=== PATIENT | male | born 1975 | race African-American/Black ===

== ENCOUNTER 2019-12-21 11:40 | Emergency (ER) | payer BC, SELFPAY ==
[2019-12-21 11:43] VITALS: BP 126/81; RESP 20; TEMP 36.8; O2SAT 99
--- NOTE | 2019-12-21 11:55 | ED.BACK ---
HPI - Back Pain/Injury General Chief Complaint: Back Pain/Injury Stated Complaint: back pain Time Seen by Provider: 12/21/19 12:00 Source: patient and RN notes reviewed Mode of arrival: ambulatory Limitations: no limitations History of Present Illness HPI Narrative: 44-year-old male presents with concern for low back pain that started . Denies any injury, trauma. Reports pain on the right low back, that radiates down the right buttock. Reports he was just in the chiropractor, who he was seeing for the first time. He reports after TENS unit and stretching the pain worsened. He reports he had been taking cyclobenzaprine for shoulder muscle spasms, last took cyclobenzaprine yesterday. Reports cyclobenzaprine was not helping his back pain. Reports he is also been taking 800 mg ibuprofen with no relief. MD elicited complaint: back pain Related Data Home Medications Medication Instructions Recorded Confirmed baclofen 10 mg tablet 10 mg PO QID tablet 09/23/19 blood sugar diagnostic #10 each 09/23/19 blood sugar diagnostic #10 each 09/23/19 lancets 33 gauge #100 each 09/23/19 metformin 1,000 mg tablet 1,000 mg PO DAILY 09/23/19 nitroglycerin 0.4 mg sublingual 0.4 mg SUBLINGUAL Q5M PRN 09/23/19 tablet allopurinol 300 mg PO DAILY 12/08/19 amlodipine 10 mg PO DAILY 12/08/19 chlorthalidone 50 mg PO DAILY 12/08/19 methylphenidate HCl 20 mg PO BID 12/08/19 sitagliptin [Januvia] 100 mg PO DAILY 12/08/19 albuterol sulfate INHALATION 12/21/19 Allergies Allergy/AdvReac Type Severity Reaction Status Date / Time lisinopril Allergy Unknown Cough Verified 12/08/19 09:08 Penicillins Allergy Unknown Unknown Verified 08/10/19 11:43 Review of Systems Review of Systems: Narrative: CONSTITUTIONAL: Denies malaise, chills, sweats, or fever. CARDIOVASCULAR: Denies chest pain, palpitations, or edema. RESPIRATORY: Denies cough or dyspnea. GASTROINTESTINAL: Denies abdominal pain, nausea, vomiting, diarrhea, denies loss of bowel function. GENITOURINARY: Denies dysuria or hematuria. Denies loss of bladder function. Denies loss of perianal anesthesia SKIN: Denies rash or itching. MUSCULOSKELETAL: Reports low right back pain that radiates to the right buttock NEUROLOGIC: Denies numbness, weakness, or headache. All systems reviewed & are unremarkable except as noted in HPI and below PMFSH Social History Social History Smoking status: Current every day smoker Alcohol intake: current Comments At time of signature, agree with nursing past medical, surgical, social and family history. There is no relevant family history pertinent to the presenting complaint Exam Narrative: Exam Narrative: GENERAL: Well-appearing, well-nourished, and in no acute distress. HEAD: Normocephalic, atraumatic. EYES: PERRLA and EOMI. NECK: Supple. No lymphadenopathy. CHEST: Clear to auscultation. No respiratory distress. HEART: Regular rate and rhythm. Distal pulses palpable and equal, cap refill <3 seconds ABDOMEN: Soft, nontender, nondistended, normal active bowel sounds, no palpable or pulsatile masses. No CVA tenderness MUSCULOSKELETAL: Normal range of motion and strength in all extremities; 5/5 strength with hip flexion and extension, dorsiflexion and extension, knee flexion and extension, plantar flexion and extension. Normal sensation in dermatomal distributions with sensitivity to light touch and pain. No midline back tenderness to palpation. No paraspinal tenderness. Transfers from lying to sitting to standing. SKIN: Warm, dry, no rash. No ecchymosis, erythema, open wounds to back. NEURO: No focal deficits. Alert and oriented x3. Reflexes intact. Normal gait. PSYCH: Normal mood and affect Course Course Emergency Course: Discussed with patient limited diagnostic capability at the [facility], and need for further evaluation due to patient's continued pain despite anti-inflammatories and
== END 2019-12-21 12:38 | disposition home or self-care (01) ==
PROVIDERS: Emergency Provider Nurse Practitioner; PCP Family Medicine
DX: M54.5 Low back pain (principal); F17.200 Nicotine dependence, unspecified, uncomplicated; I10 Essential (primary) hypertension; G47.30 Sleep apnea, unspecified; M10.9 Gout, unspecified; E11.9 Type 2 diabetes mellitus without complications
CPT/HCPCS: 99213; G0463

== ENCOUNTER 2020-10-28 09:09 | Emergency (ER) | payer BC, SELFPAY ==
[2020-10-28 09:21] VITALS: BP 139/99; PULSE 98; RESP 18; TEMP 36.8; O2SAT 100
--- NOTE | 2020-10-28 11:03 | ED.BACK ---
HPI - Back Pain/Injury General Chief Complaint: Back Pain/Injury Stated Complaint: back pain Time Seen by Provider: 10/28/20 09:39 Source: patient Mode of arrival: ambulatory Limitations: no limitations History of Present Illness HPI Narrative: 45-year-old man Complains of back trouble with pains radiating mostly into his right leg times weeks to months He has had some prescriptions which did not resolve his symptoms and also went to physical therapy previously There is no weakness, there is no bowel or bladder symptoms, there is no loss of sensation He has no red flag conditions such as cancer drug abuse or steroid use MD elicited complaint: back pain Pertinent past history: prior back pain Related Data Home Medications Medication Instructions Recorded Confirmed baclofen 10 mg tablet 10 mg PO QID tablet 09/23/19 blood sugar diagnostic #10 each 09/23/19 blood sugar diagnostic #10 each 09/23/19 lancets 33 gauge #100 each 09/23/19 metformin 1,000 mg tablet 1,000 mg PO DAILY 09/23/19 nitroglycerin 0.4 mg sublingual 0.4 mg SUBLINGUAL Q5M PRN 09/23/19 tablet allopurinol 300 mg PO DAILY 12/08/19 amlodipine 10 mg PO DAILY 12/08/19 chlorthalidone 50 mg PO DAILY 12/08/19 methylphenidate HCl 20 mg PO BID 12/08/19 sitagliptin [Januvia] 100 mg PO DAILY 12/08/19 albuterol sulfate INHALATION 12/21/19 Allergies Allergy/AdvReac Type Severity Reaction Status Date / Time Penicillins Allergy Severe Anaphylactic Verified 10/28/20 09:27 Shock lisinopril Allergy Unknown Cough Verified 10/28/20 09:27 [facility] Past Medical History Medical History (Updated 10/28/20 @ 11:06 by Gilberto Crews MD) Carpal tunnel syndrome Diabetes mellitus Essential hypertension Gastric reflux Hyperglycinemia Obesity Osteoarthritis of both knees Sleep apnea Family History Family History Mother Diabetes mellitus Hypertension Father Hypertension Family history of cardiovascular disease Social History Social History Smoking status: Current every day smoker Alcohol intake: current Gender identity (if verbalized by the patient): Male Exam Const: General: no acute distress, well developed and awake Nutritional Appearance: obese Orientation/consciousness: patient oriented x3 (alert) Limitations: no limitations HENMT: Head: normocephalic and atraumatic General nose exam: No nasal discharge present Face and sinus: face symmetric Eyes: Conjunctivae: conjunctivae normal Sclera: sclerae normal EOM: EOMs intact bilaterally Neck: Neck: normal visual inspection, supple and no JVD Chest: Chest palpation & inspection: deferred Resp: Effort & Inspection: normal respiratory effort Auscultation: other (BS =) Cardio: Heart sounds: no gallops GI: Inspection: normal to inspection GI Palp: Yes Soft to palpation and No Tenderness to palpation present (GI) Back/Spine/Pelvis: Thoracic/Lumbar Spine: paraspinal muscle tenderness, lumbar spinal tenderness (Low midline) and straight leg raise positive right Sacroiliac joints: bilaterally Skin: General skin exam: normal color and no rashes or lesions noted Neuro: General: patient oriented x3 (alert), moves all extremities and no focal motor deficits Cranial nerves: Yes facial symmetry Speech: normal speech Extrem: General: normal to inspection, full ROM and no pedal edema Psych: Affect: normal affect Course Vital Signs Vital signs: Vital Signs Temperature 36.8 C 10/28/20 09:21 Pulse Rate 98 10/28/20 09:21 Respiratory Rate 18 10/28/20 09:21 Blood Pressure 139/99 H 10/28/20 09:21 Pulse Oximetry 100 10/28/20 09:21 Temperature 36.8 C 10/28/20 09:21 Pulse Rate 98 10/28/20 09:21 Respiratory Rate 18 10/28/20 09:21 Blood Pressure 139/99 H 10/28/20 09:21 Pulse Oximetry 100 10/28/20 09:21 Discharge Plan Discharge Clinic
[2020-10-28] MEDS: KETOROLAC 30 MG/ML VIAL (*BKC) 60 MG IM (11:15)
== END 2020-10-28 12:08 | disposition home or self-care (01) ==
PROVIDERS: Emergency Provider Emergency Medicine; PCP Family Medicine
DX: M54.31 Sciatica, right side (principal); F17.200 Nicotine dependence, unspecified, uncomplicated; E11.9 Type 2 diabetes mellitus without complications; I10 Essential (primary) hypertension; G47.30 Sleep apnea, unspecified; M17.0 Bilateral primary osteoarthritis of knee; E66.9 Obesity, unspecified; Z68.42 Body mass index [BMI] 45.0-49.9, adult
CPT/HCPCS: 96372; 99283; J1885

== ENCOUNTER 2020-12-12 02:02 | Emergency (ER) | payer BC, SELFPAY ==
[2020-12-12 02:06] VITALS: BP 155/92; RESP 20; TEMP 37.1; O2SAT 100
--- NOTE | 2020-12-12 02:12 | ECG_ITS ---
Measurements Intervals [place] Rate: 63 P: 51 AR: 159 QRS: 35 QRSD: 92 T: 24 QT: 369 QTc: 380 Interpretive Statements SINUS RHYTHM ATRIAL PREMATURE COMPLEX BORDERLINE ECG Electronically Signed On 12-12-2020 7:55:03 [employer] by Blayne Chance D.O.
[2020-12-12 02:36] LABS: Basophils Absolute Auto 0.1 K/mm3 (0.0-0.1); Basophils Percent Auto 0.6 % (0.2-1.2); Eosinophils Absolute Auto 0.5 K/mm3 (0-0.3); Hematocrit 41.2 % (42.0-52.0); Hemoglobin 13.4 g/dL (14.0-18.0); Immature Granulocyte Absolute 0.09 K/mm3 (0.00-0.031); Immature Granulocyte Percent A 1.2 % (0-0.5); Lymphocytes Absolute Auto 3.16 K/mm3 (0.9-3.2); Lymphocytes Percent Auto 40.5 % (18.3-44.2); Mean Corpuscular HGB Conc 32.5 g/dl (32-36); Mean Corpuscular Hemoglobin 26.1 pg (26-34); Mean Corpuscular Volume 80.2 fl (80-100); Mean Platelet Volume 9.3 fl (7.4-10.4); Monocytes Absolute Auto 0.6 K/mm3 (0.1-0.6); Monocytes Percent Auto 7.9 % (2.6-8.5); Neutrophils Absolute Auto 3.4 K/mm3 (1.3-6.7); Neutrophils Percent Auto 43.8 % (45.5-73.1); Platelet Count Result 268 k/mm3 (150-375); Red Blood Count 5.14 M/mm3 (4.6-6.20); Red Cell Distribution Width 14.1 % (11.5-14.5); White Blood Count 7.8 K/mm3 (4.5-10.0)
[2020-12-12 02:45] LABS: Alanine Aminotransferase 37 U/L (4-50); Albumin Level 4.1 g/dL (3.5-5.1); Alkaline Phosphatase 49 U/L (38-126); Anion Gap 7 mmol/L (8-16); Aspartate Amino Transferase 27 U/L (17-59); Bilirubin,Total 0.7 mg/dL (0.2-1.3); Blood Urea Nitrogen 10 mg/dL (9-20); Calcium 9.4 mg/dL (8.4-10.2); Carbon Dioxide 31 mmol/L (22-30); Chloride 100 mmol/L (98-107); Estimated CRCL calculation 134 ml/min; Estimated Glomerular Filt Rate > 60; Glucose 154 mg/dL (75-110); Magnesium 1.6 mg/dL (1.6-2.3); Potassium 4.2 mmol/L (3.4-5.0); Sodium 138 mmol/L (137-145)
--- NOTE | 2020-12-12 02:51 | ED.GENADULT ---
HPI - General Adult General Chief complaint: Unspecified Stated complaint: feels shakey Time Seen by Provider: 12/12/20 02:07 History of Present Illness HPI narrative: Patient is a 45-year-old gentleman who presents the emergency department with chief complaint of feeling shaky. The patient reports that this evening he went to bed and was trying not to take his Arnold and his Flexeril. The patient states he woke up and felt as though he was shaking over his entire body. Patient states that he was awake during this time had no loss of consciousness no loss of bowel or bladder function. Patient states that he called EMS and it slowly has improved since then. The patient denies fever reports he did not feel like chills. Patient denies nausea vomiting or diarrhea patient denies abdominal pain. Related Data Home Medications Medication Instructions Recorded Confirmed baclofen 10 mg tablet 10 mg PO QID tablet 09/23/19 blood sugar diagnostic #10 each 09/23/19 blood sugar diagnostic #10 each 09/23/19 lancets 33 gauge #100 each 09/23/19 metformin 1,000 mg tablet 1,000 mg PO DAILY 09/23/19 nitroglycerin 0.4 mg sublingual 0.4 mg SUBLINGUAL Q5M PRN 09/23/19 tablet allopurinol 300 mg PO DAILY 12/08/19 amlodipine 10 mg PO DAILY 12/08/19 chlorthalidone 50 mg PO DAILY 12/08/19 methylphenidate HCl 20 mg PO BID 12/08/19 sitagliptin [Januvia] 100 mg PO DAILY 12/08/19 albuterol sulfate INHALATION 12/21/19 Allergies Allergy/AdvReac Type Severity Reaction Status Date / Time Penicillins Allergy Severe Anaphylactic Verified 10/28/20 09:27 Shock lisinopril Allergy Unknown Cough Verified 10/28/20 09:27 Review of Systems Review of Systems: Narrative: A 10 system review of systems was completed on the patient and is negative except for what is stated in the HPI. Nursing and ancillary documentation was reviewed. [facility] Past Medical History Medical History (Updated 12/12/20 @ 02:55 by Geraldo Hwang MD) Carpal tunnel syndrome Diabetes mellitus Essential hypertension Gastric reflux Hyperglycinemia Obesity Osteoarthritis of both knees Sleep apnea Family History Family History Mother Diabetes mellitus Hypertension Father Hypertension Family history of cardiovascular disease Social History Social History Smoking status: Current every day smoker Alcohol intake: current Gender identity (if verbalized by the patient): Male Exam Narrative: Exam Narrative: GENERAL: Well-appearing, well-nourished, and in no acute distress. HEAD: Normocephalic, atraumatic. EYES: PERRLA and EOMI. ENT: Nares clear, no rhinorrhea or epistaxis. Mucous membranes moist. NECK: Supple. CHEST: Clear to auscultation. No respiratory distress. HEART: Regular rate and rhythm. No murmur heard. Normal peripheral pulses. ABDOMEN: Soft, nontender, nondistended, normal active bowel sounds. EXTREMITIES: Normal range of motion. No edema. SKIN: Warm, dry, no rash. NEURO: No focal deficits. Alert and oriented x3. PSYCH: Normal mood and affect. Course Course Emergency Course: EKG shows a sinus rhythm rate of [address] elevation or ST depression noted there is an occasional PAC Vital Signs Vital signs: Vital Signs Temperature 37.1 C 12/12/20 02:06 Respiratory Rate 12/12/20 02:06 Blood Pressure 155/92 H 12/12/20 02:06 Pulse Oximetry 100 12/12/20 02:06 Temperature 37.1 C 12/12/20 02:06 Pulse Rate 3 L 12/12/20 02:52 Respiratory Rate 12/12/20 02:52 Blood Pressure 115/60 12/12/20 02:52 Pulse Oximetry 100 12/12/20 02:52 Medical Decision Making Vital Signs Vital Signs: Vital Signs Temperature 37.1 C 12/12/20 02:06 Respiratory Rate 12/12/20 02:06 Blood Pressure 155/92 H 12/12/20 02:06 Pulse Oximetry 100 12/12/20 02:06 Temperature 37.1 C 11/18
[2020-12-12 02:52] VITALS: BP 115/60; PULSE 3; RESP 20; O2SAT 100
[2020-12-12 02:56] LABS: Add Urine Microscopic? YES; Appearance Urine Clear (Clear); Bilirubin Urine Negative (Negative); Blood Urine 1+ (Negative); Color Urine Straw (Yellow); Glucose Urine UA 3+ mg/dL (Negative); Ketones Urine Negative (Negative); Leukocyte Esterase Ur Negative LEU/UL (Negative); Mucus Urine Rare /lpf; Nitrate Urine Negative (Negative); Protein Urine Negative (Negative); RBC Urine 0-2 /hpf (0-2); Specific Grav Ur 1.017 (1.001-1.035); Squamous Epithelial Cell Urine Rare /hpf (Few); Urobilinogen Urine Negative mg/dL (<2.0); WBC Urine 0-3 /hpf
[2020-12-12] MEDS: KETOROLAC (*BKC) 60 MG/2 ML VIAL IM (03:14)
== END 2020-12-12 03:26 | disposition home or self-care (01) ==
PROVIDERS: Emergency Provider Emergency Medicine; PCP Family Medicine
DX: R25.1 Tremor, unspecified (principal); E11.9 Type 2 diabetes mellitus without complications; I10 Essential (primary) hypertension; M17.0 Bilateral primary osteoarthritis of knee; G47.30 Sleep apnea, unspecified; Z79.84 Long term (current) use of oral hypoglycemic drugs; F17.200 Nicotine dependence, unspecified, uncomplicated; I49.1 Atrial premature depolarization
CPT/HCPCS: 36415; 80053; 81001; 83735; 85025; 93005; 96372; 99283; J1885

== ENCOUNTER → 2020-12-16 08:57 | Outpatient (CLI) | payer BC, SELFPAY ==
--- NOTE | ~2020-12-16 | MR_ITS ---
EXAMINATION: MR lumbar spine wo con DATE: 12/16/2020 09:59 INDICATION: Low back pain. TECHNIQUE: Magnetic resonance imaging (MRI) of the lumbar spine was performed without intravenous con trast. Sequences included sagittal T2-weighted FSE, sagittal T2-weighted FS FSE, sagittal T1-weighted FSE, and axial T2-weighted FSE. COMPARISON: Lumbar spine radiographs 05/07/2019 FINDINGS: Bone alignment is normal. Vertebral body heights are normal. Intervertebral disc heights ar e normal. The distal spinal cord signal intensity is normal. The conus medullaris is at L1. The follo wing disc levels are specifically discussed: L1-L2: The disc does not extend beyond the endplate margin. There is mild bilateral facet joint osteo arthritis. There is no neural foraminal stenosis. There is no central canal stenosis. L2-L3: The disc is mildly bulging. There is mild bilateral facet joint osteoarthritis. There is mild bilateral neural foraminal stenosis. There is no central canal stenosis. L3-L4: The disc is mildly bulging. There is mild bilateral facet joint osteoarthritis. There is mild bilateral neural foraminal stenosis. There is no central canal stenosis. L4-L5: The disc is bulging. There is mild bilateral facet joint osteoarthritis. There is mild bilater al neural foraminal stenosis. There is mild central canal stenosis. L5-S1: The disc is bulging and has an annular fissure. There is no facet joint osteoarthritis. There is moderate bilateral neural foraminal stenosis. There is mild central canal stenosis. IMPRESSION: 1. Moderate lower lumbar spondylosis. Reviewed, dictated and finalized at location A. OR [employer] WRITER
== END ==
PROVIDERS: Visit Provider Physical Medicine & Rehabilitation Pain Medicine
DX: M47.896 Other spondylosis, lumbar region (principal)
CPT/HCPCS: 72148

== ENCOUNTER 2020-12-25 00:33 | Emergency (ER) | payer BC, SELFPAY ==
--- NOTE | ~2020-12-25 | XR_ITS ---
EXAMINATION: XR chest 2V DATE: 12/25/2020 02:01 INDICATION: Chest pain. TECHNIQUE: Frontal and lateral views of the chest were obtained. COMPARISON: Chest 2 views 07/31/2019 FINDINGS: The chest demonstrates clear lungs without pneumonia, pleural effusion, or pneumothorax. Th e heart size is normal. Surgical clips in the right upper quadrant are likely from cholecystectomy. IMPRESSION: 1. No acute cardiopulmonary disease. Reviewed, dictated and finalized at location A. TRY PROCESSOR
[2020-12-25 00:38] VITALS: BP 182/117; PULSE 99; RESP 22; TEMP 35.9; O2SAT 100
[2020-12-25] MEDS: KETOROLAC 30 MG/ML VIAL (*BKC) IV PUSH (01:46)
[2020-12-25 01:50] LABS: Basophils Absolute Auto 0.1 K/mm3 (0.0-0.1); Basophils Percent Auto 0.7 % (0.2-1.2); Eosinophils Absolute Auto 0.4 K/mm3 (0-0.3); Eosinophils Percent Auto 2.5 % (0-4.4); Hematocrit 43.7 % (42.0-52.0); Hemoglobin 14.4 g/dL (14.0-18.0); Immature Granulocyte Absolute 0.11 K/mm3 (0.00-0.031); Immature Granulocyte Percent A 0.7 % (0-0.5); Lymphocytes Percent Auto 32.1 % (18.3-44.2); Mean Corpuscular Hemoglobin 26.3 pg (26-34); Mean Corpuscular Volume 79.9 fl (80-100); Mean Platelet Volume 9.6 fl (7.4-10.4); Monocytes Absolute Auto 1.2 K/mm3 (0.1-0.6); Monocytes Percent Auto 7.9 % (2.6-8.5); Neutrophils Absolute Auto 8.6 K/mm3 (1.3-6.7); Neutrophils Percent Auto 56.1 % (45.5-73.1); Platelet Count Result 326 k/mm3 (150-375); Red Blood Count 5.47 M/mm3 (4.6-6.20); Red Cell Distribution Width 14.5 % (11.5-14.5); White Blood Count 15.3 K/mm3 (4.5-10.0)
[2020-12-25 01:58] LABS: Prothrombin Time 13.7 Seconds (11.1-14.7)
[2020-12-25 02:05] LABS: Anion Gap 13 mmol/L (8-16); Blood Urea Nitrogen 18 mg/dL (9-20); Calcium 9.5 mg/dL (8.4-10.2); Carbon Dioxide 30 mmol/L (22-30); Chloride 97 mmol/L (98-107); Estimated Glomerular Filt Rate > 60; Glucose 124 mg/dL (75-110); Potassium 3.4 mmol/L (3.4-5.0); Sodium 140 mmol/L (137-145)
--- NOTE | 2020-12-25 02:15 | ECG_ITS ---
Measurements Intervals [place] Rate: 94 P: 70 [place]: 127 QRS: 63 QRSD: 87 T: 38 QT: 363 QTc: 454 Interpretive Statements SINUS RHYTHM BASELINE ARTIFACT- I, II, AVR, AVL, AVF, V2-V3, V6 NORMAL ECG Electronically Signed On 12-25-2020 7:05:45 [employer] by Blayne Chance D.O.
[2020-12-25 02:17] LABS: Troponin I < 0.012 ng/mL (0.000-0.034)
[2020-12-25 03:14] VITALS: BP 168/99; PULSE 85; RESP 18; O2SAT 100
--- NOTE | 2020-12-25 03:47 | ED.CHESTPAIN ---
HPI - Chest Pain General Chief Complaint: Chest Pain Stated Complaint: cp Time Seen by Provider: 12/25/20 00:38 History of Present Illness HPI narrative: Patient is a 45-year-old male who presents to the ER with left-sided chest pain. Occurred while laying on the ground watching TV. Its left side and worse with movements of his arm. No known trauma. No difficulty breathing or swallowing. No history of cardiac disease. Unsure why he has nitroglycerin at home but reports he has never used it and has no exertional chest pain. Associate with some mild nausea. Reported started moving near his neck earlier but is located in the left side at this time. Cramping in nature. Related Data Home Medications Medication Instructions Recorded Confirmed baclofen 10 mg tablet 10 mg PO QID tablet 09/23/19 blood sugar diagnostic #10 each 09/23/19 blood sugar diagnostic #10 each 09/23/19 lancets 33 gauge #100 each 09/23/19 metformin 1,000 mg tablet 1,000 mg PO DAILY 09/23/19 nitroglycerin 0.4 mg sublingual 0.4 mg SUBLINGUAL Q5M PRN 09/23/19 tablet allopurinol 300 mg PO DAILY 12/08/19 amlodipine 10 mg PO DAILY 12/08/19 chlorthalidone 50 mg PO DAILY 12/08/19 methylphenidate HCl 20 mg PO BID 12/08/19 sitagliptin [Januvia] 100 mg PO DAILY 12/08/19 albuterol sulfate INHALATION 12/21/19 Allergies Allergy/AdvReac Type Severity Reaction Status Date / Time Penicillins Allergy Severe Anaphylactic Verified 12/25/20 00:41 Shock lisinopril Allergy Unknown Cough Verified 12/25/20 00:41 Review of Systems Review of Systems: All systems reviewed & are unremarkable except as noted in HPI and below Constitutional: Constitutional: Denies chills, Reports fatigue, Denies fever(s) and Denies weakness ENT: Denies nasal congestion and Denies sore throat Cardiovascular: Cardiovascular: Reports chest pain, Denies rapid heart rate and Reports radiating jaw, neck or arm pain Respiratory: Respiratory: Denies cough and Denies dyspnea Gastrointestinal: Gastrointestinal: Denies abdominal pain, Reports nausea and Denies vomiting [facility] Past Medical History Medical History (Updated 12/25/20 @ 04:06 by Olu Torres MD) Carpal tunnel syndrome Diabetes mellitus Essential hypertension Gastric reflux Hyperglycinemia Obesity Osteoarthritis of both knees Sleep apnea Surgical History Surgical History (Updated 12/25/20 @ 04:04 by Olu Torres MD) No pertinent past surgical history Family History Family History Mother Diabetes mellitus Hypertension Father Hypertension Family history of cardiovascular disease Social History Social History Smoking status: Current every day smoker Alcohol intake: current Gender identity (if verbalized by the patient): Male Exam Narrative: Exam Narrative: GENERAL: Well-appearing, well-nourished, and in no acute distress. HEAD: Normocephalic, atraumatic. CHEST: Clear to auscultation. No respiratory distress. Tender palpation left upper chest wall which is reproducible patient's discomfort. HEART: Regular rate and rhythm. Normal peripheral pulses. ABDOMEN: Soft, nontender, nondistended. EXTREMITIES: Normal range of motion. No edema. SKIN: Warm, dry, no rash. NEURO: Alert and oriented x3. PSYCH: Normal mood and affect. Course Course Emergency Course: Pain improved with medication. Informed of results. Pain felt to be musculoskeletal in nature. Discharge home. Vital Signs Vital signs: Vital Signs Temperature 96.7 F L 12/25/20 00:38 Pulse Rate 99 12/25/20 00:38 Respiratory Rate 22 H 12/25/20 00:38 Blood Pressure 182/117 H 12/25/20 00:38 Pulse Oximetry 100 12/25/20 00:38 Temperature 96.7 F L 12/25/20 00:38 Pulse Rate 85 12/25/20 03:14 Respiratory Rate 18 12/25/20 03:14 Blood Pressure 168/99 H 12/25/20 03:14 Pulse Oxi
[2020-12-25 04:36] VITALS: BP 167/89; PULSE 87; RESP 20; O2SAT 98
== END 2020-12-25 04:39 | disposition home or self-care (01) ==
PROVIDERS: Emergency Provider Emergency Medicine; PCP Family Medicine
DX: R07.89 Other chest pain (principal); E11.9 Type 2 diabetes mellitus without complications; I10 Essential (primary) hypertension; K21.9 Gastro-esophageal reflux disease without esophagitis; M17.0 Bilateral primary osteoarthritis of knee; G47.30 Sleep apnea, unspecified; E66.9 Obesity, unspecified; Z79.84 Long term (current) use of oral hypoglycemic drugs; F17.200 Nicotine dependence, unspecified, uncomplicated
CPT/HCPCS: 36415; 71046; 80048; 84484; 85025; 85610; 85730; 93005; 96374; 99284; J1885

== ENCOUNTER 2021-03-06 03:23 | Emergency (ER) | payer BC, SELFPAY ==
--- NOTE | ~2021-03-06 | XR_ITS ---
XR chest 1V portable DATE: 03/06/2021 05:01 INDICATION: Chest pain, abdominal cramping TECHNIQUE: Portable upright AP chest on 03/06/2021 at 0459 hours COMPARISON: 01/04/2021 PA and lateral chest FINDINGS: Normal heart size. No hilar or mediastinal enlargement. No pulmonary infiltrate or consolid ation, pleural effusion or pulmonary vascular congestion or pneumothorax. Included skeletal structures are unremarkable other than degenerative spurring of the spine.. IMPRESSION: No active cardiopulmonary disease Reviewed, dictated and finalized at location A.
--- NOTE | 2021-03-06 03:37 | ECG_ITS ---
Measurements Intervals [place] Rate: 91 P: 60 DC: 150 QRS: 61 QRSD: 98 T: 50 QT: 358 QTc: 441 Interpretive Statements SINUS RHYTHM BASELINE ARTIFACT- V5 NORMAL ECG Electronically Signed On 03-06-2021 7:23:15 CDT by Blayne Chance D.O.
[2021-03-06 03:38] VITALS: BP 155/105; PULSE 83; RESP 16; TEMP 36.7; O2SAT 100
[2021-03-06 03:51] LABS: Basophils Absolute Auto 0.1 K/mm3 (0.0-0.1); Basophils Percent Auto 0.6 % (0.2-1.2); Eosinophils Absolute Auto 0.6 K/mm3 (0-0.3); Eosinophils Percent Auto 4.6 % (0-4.4); Hematocrit 42.3 % (42.0-52.0); Hemoglobin 13.8 g/dL (14.0-18.0); Immature Granulocyte Absolute 0.18 K/mm3 (0.00-0.031); Immature Granulocyte Percent A 1.4 % (0-0.5); Lymphocytes Absolute Auto 4.26 K/mm3 (0.9-3.2); Lymphocytes Percent Auto 34.1 % (18.3-44.2); Mean Corpuscular HGB Conc 32.6 g/dl (32-36); Mean Corpuscular Hemoglobin 26.1 pg (26-34); Mean Corpuscular Volume 80.1 fl (80-100); Mean Platelet Volume 9.2 fl (7.4-10.4); Monocytes Absolute Auto 0.8 K/mm3 (0.1-0.6); Monocytes Percent Auto 6.4 % (2.6-8.5); Neutrophils Absolute Auto 6.6 K/mm3 (1.3-6.7); Neutrophils Percent Auto 52.9 % (45.5-73.1); Platelet Count Result 255 k/mm3 (150-375); Red Blood Count 5.28 M/mm3 (4.6-6.20); Red Cell Distribution Width 15.2 % (11.5-14.5); White Blood Count 12.5 K/mm3 (4.5-10.0)
[2021-03-06 04:25] VITALS: BP 133/80; PULSE 86; RESP 16; O2SAT 98
--- NOTE | 2021-03-06 04:44 | ED.CHESTPAIN ---
HPI - Chest Pain General Chief Complaint: Arrhythmia/Palpitations <Shelley Daniel MD - Last Filed: 03/06/21 08:12> Stated Complaint: heart beating fast/chest tightness <Shelley Daniel MD - Last Filed: 03/06/21 08:12> Time Seen by Provider: 03/06/21 03:37 <Shelley Daniel MD - Last Filed: 03/06/21 08:12> Source: patient <Shelley Daniel MD - Last Filed: 03/06/21 08:12> Mode of arrival: ambulatory <Shelley Daniel MD - Last Filed: 03/06/21 08:12> Limitations: no limitations <Shelley Daniel MD - Last Filed: 03/06/21 08:12> History of Present Illness HPI narrative: This is a 45 year old male with history hypertension and DM who presents for evaluation of chest tightness. He states he has been having chest tightness over the past 24 hours. He states he does not noticed it as much until he is at rest. He finally came to [facility] because he could not sleep. He states tonight he became diaphoretic and he did not feel well. His chest tightness is nonradiating. He denies cough, fever, nausea or vomiting. He does reports intermittent shortness of breath and muscle spasms to his abdomen. He states he has chronic back pain so he is not very active. HE denies heart disease or previous heart evaluation. <Shelley Daniel MD - Last Filed: 03/06/21 08:12> Related Data Home Medications: Home Medications Medication Instructions Recorded Confirmed baclofen 10 mg tablet 10 mg PO QID tablet 09/23/19 blood sugar diagnostic #10 each 09/23/19 blood sugar diagnostic #10 each 09/23/19 lancets 33 gauge #100 each 09/23/19 metformin 1,000 mg tablet 1,000 mg PO DAILY 09/23/19 nitroglycerin 0.4 mg sublingual 0.4 mg SUBLINGUAL Q5M PRN 09/23/19 tablet allopurinol 300 mg PO DAILY 12/08/19 amlodipine 10 mg PO DAILY 12/08/19 chlorthalidone 50 mg PO DAILY 12/08/19 methylphenidate HCl 20 mg PO BID 12/08/19 sitagliptin [Januvia] 100 mg PO DAILY 12/08/19 albuterol sulfate INHALATION 12/21/19 <Shelley Daniel MD - Last Filed: 03/06/21 08:12> Allergies/Adverse Reactions: Allergies Allergy/AdvReac Type Severity Reaction Status Date / Time Penicillins Allergy Severe Anaphylactic Verified 03/06/21 03:24 Shock lisinopril Allergy Unknown Cough Verified 03/06/21 03:24 <Shelley Daniel MD - Last Filed: 03/06/21 08:12> Review of Systems Review of Systems: All systems reviewed & are unremarkable except as noted in HPI and below <Shelley Daniel MD - Last Filed: 03/06/21 08:12> [facility] Past Medical History Medical History: Medical History (Updated 03/06/21 @ 08:12 by Shelley Daniel MD) Carpal tunnel syndrome Diabetes mellitus Essential hypertension Gastric reflux Hyperglycinemia Obesity Osteoarthritis of both knees Sleep apnea <Shelley Daniel MD - Last Filed: 03/06/21 08:12> Surgical History Surgical History: Surgical History (Updated 12/25/20 @ 04:04 by Olu Torres MD) No pertinent past surgical history <Shelley Daniel MD - Last Filed: 03/06/21 08:12> Family History Family History: Family History Mother Diabetes mellitus Hypertension Father Hypertension Family history of cardiovascular disease <Shelley Daniel MD - Last Filed: 03/06/21 08:12> Social History Social History: Social History Smoking status: Current every day smoker Alcohol intake: current Gender identity (if verbalized by the patient): Male <Shelley Daniel MD - Last Filed: 03/06/21 08:12> Exam Const: General: no acute distress and alert <Shelley Daniel MD - Last Filed: 03/06/21 08:12> Orientation/consciousness: patient oriented x3 <Shelley Daniel MD - Last Filed: 03/06/21 08:12> Eyes: EOM: EOMs intact bilaterally <Shelley Daniel MD - Last Filed: 03/06/21 08:12> Chest
[2021-03-06] MEDS: ASPIRIN 81 MG CHEWABLE TABLET 324 MG PO (05:26)
[2021-03-06 05:29] LABS: INR 0.9; Prothrombin Time 12.7 Seconds (11.1-14.7)
[2021-03-06 05:30] LABS: Partial Thromboplastin Time 32.6 SECONDS (22.3-36.8)
[2021-03-06 05:32] LABS: Alanine Aminotransferase 33 U/L (4-50); Albumin Level 4.3 g/dL (3.5-5.1); Alkaline Phosphatase 65 U/L (38-126); Anion Gap 7 mmol/L (8-16); Aspartate Amino Transferase 27 U/L (17-59); Bilirubin,Total 0.7 mg/dL (0.2-1.3); Blood Urea Nitrogen 15 mg/dL (9-20); Carbon Dioxide 29 mmol/L (22-30); Chloride 101 mmol/L (98-107); D Dimer 0.27 ug/mL (<0.48); Estimated CRCL calculation 140 ml/min; Estimated Glomerular Filt Rate > 60; Glucose 126 mg/dL (75-110); Lipase 280 U/L (23-300); Potassium 4.4 mmol/L (3.4-5.0); Sodium 137 mmol/L (137-145)
[2021-03-06 05:43] LABS: Troponin I < 0.012 ng/mL (0.000-0.034)
[2021-03-06 06:26] VITALS: BP 130/86; PULSE 86; RESP 16; O2SAT 100
[2021-03-06 07:25] VITALS: BP 125/68; PULSE 82; RESP 23; O2SAT 99
--- NOTE | 2021-03-06 07:37 | PC.NURSE ---
at bedside for reassessment. Pt resting on cart HOB elevated, repositioned for comfort, asking for warm blanket and pillow. States earlier he had shocks of pain in chest , +SOB. Currently denies CP/SOB, non-labored respirations.
--- NOTE | 2021-03-06 08:36 | PC.NURSE ---
0810 Pt ambulatory steady gait to BR, 3hr trop drawn and sent to lab
[2021-03-06 08:52] LABS: Troponin I < 0.012 ng/mL (0.000-0.034)
[2021-03-06 10:00] VITALS: BP 150/99; PULSE 86; RESP 20; O2SAT 97
== END 2021-03-06 10:47 | disposition home or self-care (01) ==
PROVIDERS: General Practice; Emergency Provider Emergency Medicine; PCP Family Medicine
DX: R00.2 Palpitations (principal); R07.9 Chest pain, unspecified; E11.9 Type 2 diabetes mellitus without complications; I10 Essential (primary) hypertension; G47.30 Sleep apnea, unspecified; Z79.84 Long term (current) use of oral hypoglycemic drugs
CPT/HCPCS: 36415; 71045; 80053; 83690; 84484; 85025; 85380; 85610; 85730; 93005; 99284; A9270

== ENCOUNTER 2021-06-29 19:08 | Emergency (ER) | payer BC, SELFPAY ==
--- NOTE | ~2021-06-29 | XR_ITS ---
EXAMINATION: XR chest 2V DATE: 06/29/2021 19:32 INDICATION: Chest pain TECHNIQUE: PA and lateral views of the chest were obtained. COMPARISON: Chest radiograph dated 03/06/2021 FINDINGS: The lungs remain clear with no focal airspace opacities, pulmonary edema, pleural effusion or pneumot horax. The cardiomediastinal silhouette is normal. Mild upper thoracic spondylosis. Cholecystectomy c lips in right upper quadrant. IMPRESSION: 1. No acute cardiopulmonary disease. Reviewed, dictated and finalized at location A.
--- NOTE | 2021-06-29 19:11 | ECG_ITS ---
Measurements Intervals [place] Rate: 86 P: 44 ID: [id number] QRS: 22 QRSD: 95 T: 17 QT: 359 QTc: 431 Interpretive Statements SINUS RHYTHM NORMAL ECG Electronically Signed On 06-29-2021 20:14:46 CDT by Blayne Chance D.O.
[2021-06-29 20:04] VITALS: BP 125/69; PULSE 80; RESP 18; TEMP 36; O2SAT 99
[2021-06-29 20:29] LABS: Basophils Absolute Auto 0.1 K/mm3 (0.0-0.1); Basophils Percent Auto 0.6 % (0.2-1.2); Eosinophils Absolute Auto 0.6 K/mm3 (0-0.3); Eosinophils Percent Auto 5.1 % (0-4.4); Hematocrit 40.2 % (42.0-52.0); Hemoglobin 13.3 g/dL (14.0-18.0); Immature Granulocyte Absolute 0.05 K/mm3 (0.00-0.031); Immature Granulocyte Percent A 0.4 % (0-0.5); Lymphocytes Absolute Auto 4.07 K/mm3 (0.9-3.2); Lymphocytes Percent Auto 34.8 % (18.3-44.2); Mean Corpuscular HGB Conc 33.1 g/dl (32-36); Mean Corpuscular Volume 78.5 fl (80-100); Mean Platelet Volume 9.4 fl (7.4-10.4); Monocytes Absolute Auto 1.1 K/mm3 (0.1-0.6); Monocytes Percent Auto 9.8 % (2.6-8.5); Neutrophils Absolute Auto 5.8 K/mm3 (1.3-6.7); Neutrophils Percent Auto 49.3 % (45.5-73.1); Platelet Count Result 323 k/mm3 (150-375); Red Blood Count 5.12 M/mm3 (4.6-6.20); Red Cell Distribution Width 14.1 % (11.5-14.5); White Blood Count 11.7 K/mm3 (4.5-10.0)
[2021-06-29 20:34] LABS: Anion Gap 7 mmol/L (8-16); Blood Urea Nitrogen 11 mg/dL (9-20); Calcium 9.9 mg/dL (8.4-10.2); Carbon Dioxide 28 mmol/L (22-30); Chloride 103 mmol/L (98-107); Estimated Glomerular Filt Rate > 60; Glucose 94 mg/dL (65-110); Potassium 4.1 mmol/L (3.4-5.0); Sodium 138 mmol/L (137-145)
[2021-06-29 20:39] LABS: Partial Thromboplastin Time 30.5 SECONDS (22.3-36.8)
[2021-06-29 20:45] LABS: Troponin I < 0.012 ng/mL (0.000-0.034)
[2021-06-29 20:59] LABS: Platelet Estimate Adequate (Adequate)
[2021-06-29 21:00] LABS: Atypical Lymphocytes Present
[2021-06-29 23:51] LABS: Troponin I < 0.012 ng/mL (0.000-0.034)
--- NOTE | 2021-06-30 00:50 | PC.NURSE ---
pt left at this time. refused exit vitals.
== END 2021-06-30 00:50 | disposition left against medical advice (07) ==
LOC: ANHED 06-30 00:57
PROVIDERS: Emergency Provider Emergency Medicine; PCP Family Medicine
DX: R07.9 Chest pain, unspecified (principal); Z53.21 Procedure and treatment not carried out due to patient leaving prior to being seen by health care provider
CPT/HCPCS: 36415; 71046; 80048; 84484; 85025; 85610; 85730; 93005; 99199

== ENCOUNTER 2021-07-04 00:57 | Emergency (ER) | payer BC, SELFPAY ==
--- NOTE | ~2021-07-04 | XR_ITS ---
XR chest 2V 07/04/2021 01:25 Indication: Right-sided chest pain. Nausea. Dizziness. Procedure: PA and lateral views of the chest Comparison: Comparison to multiple prior studies sequentially, with oldest reviewed study dated 07/31. Findings: Heart size normal. No focal air space disease, pulmonary edema, pleural effusion or suspect ed pneumothorax. Impression: 1: No acute cardiopulmonary disease. Reviewed, dictated and finalized at location A. Impression: 1: No acute cardiopulmonary disease.
[2021-07-04 01:04] VITALS: BP 134/94; PULSE 94; RESP 14; TEMP 36.9; O2SAT 99
--- NOTE | 2021-07-04 01:04 | ECG_ITS ---
Measurements Intervals [place] Rate: 93 P: 53 SC: 160 QRS: 25 QRSD: 86 T: 8 QT: 352 QTc: 440 Interpretive Statements SINUS RHYTHM BASELINE ARTIFACT- I, II, V1, V3-V5 NORMAL ECG Electronically Signed On 07-04-2021 6:33:47 CDT by Blayne Chance D.O.
[2021-07-04 01:29] LABS: Basophils Absolute Auto 0.1 K/mm3 (0.0-0.1); Basophils Percent Auto 0.7 % (0.2-1.2); Eosinophils Absolute Auto 0.5 K/mm3 (0-0.3); Eosinophils Percent Auto 4.7 % (0-4.4); Hematocrit 42.2 % (42.0-52.0); Hemoglobin 13.5 g/dL (14.0-18.0); Immature Granulocyte Absolute 0.04 K/mm3 (0.00-0.031); Immature Granulocyte Percent A 0.4 % (0-0.5); Lymphocytes Absolute Auto 3.47 K/mm3 (0.9-3.2); Lymphocytes Percent Auto 35.1 % (18.3-44.2); Mean Corpuscular Hemoglobin 26.1 pg (26-34); Mean Corpuscular Volume 81.6 fl (80-100); Mean Platelet Volume 9.3 fl (7.4-10.4); Monocytes Absolute Auto 0.8 K/mm3 (0.1-0.6); Monocytes Percent Auto 8.5 % (2.6-8.5); Neutrophils Percent Auto 50.6 % (45.5-73.1); Platelet Count Result 288 k/mm3 (150-375); Red Blood Count 5.17 M/mm3 (4.6-6.20); Red Cell Distribution Width 14.1 % (11.5-14.5); White Blood Count 9.9 K/mm3 (4.5-10.0)
[2021-07-04 01:41] LABS: INR 0.9; Prothrombin Time 12.4 Seconds (11.1-14.7)
[2021-07-04 01:42] LABS: Partial Thromboplastin Time 31.3 SECONDS (22.3-36.8)
[2021-07-04 01:43] LABS: Anion Gap 9 mmol/L (8-16); Blood Urea Nitrogen 10 mg/dL (9-20); Calcium 9.9 mg/dL (8.4-10.2); Carbon Dioxide 27 mmol/L (22-30); Chloride 104 mmol/L (98-107); Estimated CRCL calculation 127 ml/min; Estimated Glomerular Filt Rate > 60; Glucose 105 mg/dL (65-110); Potassium 3.8 mmol/L (3.4-5.0); Sodium 140 mmol/L (137-145)
[2021-07-04 01:55] LABS: Troponin I < 0.012 ng/mL (0.000-0.034)
[2021-07-04] MEDS: ASPIRIN 81 MG CHEWABLE TABLET 324 MG PO (02:31)
--- NOTE | 2021-07-04 03:01 | PC.NURSE ---
Called lab and spoke to Chiquita to add on D-Dimer, Hepatic, Lip
[2021-07-04 03:18] LABS: Alanine Aminotransferase 23 U/L (4-50); Albumin Level 4.5 g/dL (3.5-5.1); Alkaline Phosphatase 60 U/L (38-126); Aspartate Amino Transferase 24 U/L (17-59); Bilirubin,Total 0.7 mg/dL (0.2-1.3); Lipase 188 U/L (23-300)
[2021-07-04 03:20] LABS: D Dimer 0.36 ug/mL (<0.48)
--- NOTE | 2021-07-04 04:16 | ED.GENADULT ---
HPI - General Adult General Chief complaint: Chest Pain Stated complaint: chest pressure and left shoulder soreness Time Seen by Provider: 07/04/21 02:08 History of Present Illness HPI narrative: Patient 45-year-old gentleman who presents the emergency department with chief complaint of chest discomfort. The patient reports he was seen in the emergency department about a week ago after he had some discomfort in his chest. Patient states that today started having worsening aching in his chest reports he still been hurting throughout the last several days to reports is count of a pressure-like sensation reports its in the low portion of the chest. Patient states is worse with movement and improved with rest. Patient denies fever denies diaphoresis. Related Data Home Medications Medication Instructions Recorded Confirmed baclofen 10 mg tablet 10 mg PO QID tablet 09/23/19 blood sugar diagnostic #10 each 09/23/19 blood sugar diagnostic #10 each 09/23/19 lancets 33 gauge #100 each 09/23/19 metformin 1,000 mg tablet 1,000 mg PO DAILY 09/23/19 nitroglycerin 0.4 mg sublingual 0.4 mg SUBLINGUAL Q5M PRN 09/23/19 tablet allopurinol 300 mg PO DAILY 12/08/19 amlodipine 10 mg PO DAILY 12/08/19 chlorthalidone 50 mg PO DAILY 12/08/19 methylphenidate HCl 20 mg PO BID 12/08/19 sitagliptin [Januvia] 100 mg PO DAILY 12/08/19 albuterol sulfate INHALATION 12/21/19 Allergies Allergy/AdvReac Type Severity Reaction Status Date / Time Penicillins Allergy Severe Anaphylactic Verified 03/06/21 03:24 Shock lisinopril Allergy Unknown Cough Verified 03/06/21 03:24 Review of Systems Review of Systems: A 10 system review of systems was completed on the patient and is negative except for what is stated in the HPI. Nursing and ancillary documentation was reviewed. [facility] Past Medical History Medical History Carpal tunnel syndrome Diabetes mellitus Essential hypertension Gastric reflux Hyperglycinemia Obesity Osteoarthritis of both knees Sleep apnea Surgical History Surgical History No pertinent past surgical history Family History Family History Mother Diabetes mellitus Hypertension Father Hypertension Family history of cardiovascular disease Social History Social History Smoking status: Current every day smoker Alcohol intake: current Gender identity (if verbalized by the patient): Male Exam Narrative: GENERAL: Well-appearing, well-nourished, and in no acute distress. HEAD: Normocephalic, atraumatic. EYES: PERRLA and EOMI. ENT: Nares clear, no rhinorrhea or epistaxis. Mucous membranes moist. NECK: Supple. CHEST: Clear to auscultation. No respiratory distress. HEART: Regular rate and rhythm. No murmur heard. Normal peripheral pulses. ABDOMEN: Soft, nontender, nondistended, normal active bowel sounds. EXTREMITIES: Normal range of motion. No edema. SKIN: Warm, dry, no rash. NEURO: No focal deficits. Alert and oriented x3. PSYCH: Normal mood and affect. Course Vital Signs Vital signs: Vital Signs Temperature 36.9 C 07/04/21 01:04 Pulse Rate 94 07/04/21 01:04 Respiratory Rate 14 07/04/21 01:04 Blood Pressure 134/94 H 07/04/21 01:04 Pulse Oximetry 99 07/04/21 01:04 Temperature 36.9 C 07/04/21 01:04 Pulse Rate 94 07/04/21 01:04 Respiratory Rate 14 07/04/21 01:04 Blood Pressure 134/94 H 07/04/21 01:04 Pulse Oximetry 99 07/04/21 01:04 Medical Decision Making Vital Signs Vital Signs: Vital Signs Temperature 36.9 C 07/04/21 01:04 Pulse Rate 94 07/04/21 01:04 Respiratory Rate 14 07/04/21 01:04 Blood Pressure 134/94 H 07/04/21 01:04 Pulse Oximetry 99 07/04/21 01:04 Temperature 36.9 C
[2021-07-04 04:54] VITALS: BP 138/80; PULSE 97; RESP 16; O2SAT 95
== END 2021-07-04 05:00 | disposition home or self-care (01) ==
PROVIDERS: Emergency Provider Emergency Medicine; PCP Family Medicine
DX: R07.89 Other chest pain (principal); E11.9 Type 2 diabetes mellitus without complications; I10 Essential (primary) hypertension; K21.9 Gastro-esophageal reflux disease without esophagitis; E66.9 Obesity, unspecified; Z68.42 Body mass index [BMI] 45.0-49.9, adult; G47.30 Sleep apnea, unspecified; F17.200 Nicotine dependence, unspecified, uncomplicated; Z79.84 Long term (current) use of oral hypoglycemic drugs; Z79.899 Other long term (current) drug therapy
CPT/HCPCS: 36415; 71046; 80048; 80076; 83690; 84484; 85025; 85380; 85610; 85730; 93005; 99284; A9270

== ENCOUNTER 2021-10-16 13:32 | Emergency (ER) | payer BC, SELFPAY ==
--- NOTE | ~2021-10-16 | XR_ITS ---
EXAMINATION: XR chest 2V DATE: 10/16/2021 15:28 INDICATION: Chest heaviness. COVID-19 positive. TECHNIQUE: Frontal and lateral views of the chest were obtained. COMPARISON: Chest 2 views 07/04/2021, chest CT 07/31/2019 FINDINGS: There are airspace opacities in left mid and lower lung zones. No pleural effusion or pneum othorax. The heart size is normal. IMPRESSION: 1. Airspace opacities in left mid and lower lung zones, consistent with pneumonia. Reviewed, dictated and finalized at location A. INE SHOP INSPECTOR IMPRESSION: 1. Airspace opacities in left mid and lower lung zones, consistent with pneumon ia.
[2021-10-16 13:52] VITALS: BP 140/81; PULSE 87; RESP 18; TEMP 35.9; O2SAT 100
--- NOTE | 2021-10-16 13:56 | ECG_ITS ---
Measurements Intervals [place] Rate: 85 P: 46 NE: 146 QRS: 25 QRSD: 96 T: 28 QT: 344 QTc: 411 Interpretive Statements SINUS RHYTHM NORMAL ECG Electronically Signed On 10-16-2021 17:53:32 CARDIAC CATH LAB MANAGER by Blayne Chance D.O.
[2021-10-16 14:26] LABS: Basophils Percent Auto 0.2 % (0.2-1.2); Eosinophils Percent Auto 0.1 % (0-4.4); Hematocrit 43.2 % (42.0-52.0); Hemoglobin 14.1 g/dL (14.0-18.0); Immature Granulocyte Absolute 0.08 K/mm3 (0.00-0.031); Immature Granulocyte Percent A 0.9 % (0-0.5); Lymphocytes Absolute Auto 1.17 K/mm3 (0.9-3.2); Lymphocytes Percent Auto 13.1 % (18.3-44.2); Mean Corpuscular HGB Conc 32.6 g/dl (32-36); Mean Corpuscular Hemoglobin 26.5 pg (26-34); Mean Corpuscular Volume 81.1 fl (80-100); Mean Platelet Volume 9.2 fl (7.4-10.4); Monocytes Absolute Auto 1.1 K/mm3 (0.1-0.6); Monocytes Percent Auto 11.8 % (2.6-8.5); Neutrophils Absolute Auto 6.6 K/mm3 (1.3-6.7); Neutrophils Percent Auto 73.9 % (45.5-73.1); Platelet Count Result 285 k/mm3 (150-375); Red Blood Count 5.33 M/mm3 (4.6-6.20); Red Cell Distribution Width 14.7 % (11.5-14.5)
[2021-10-16 14:31] LABS: Alanine Aminotransferase 43 U/L (4-50); Albumin Level 4.3 g/dL (3.5-5.1); Alkaline Phosphatase 68 U/L (38-126); Anion Gap 10 mmol/L (8-16); Aspartate Amino Transferase 29 U/L (17-59); Bilirubin,Total 0.8 mg/dL (0.2-1.3); Blood Urea Nitrogen 11 mg/dL (9-20); Calcium 9.5 mg/dL (8.4-10.2); Carbon Dioxide 27 mmol/L (22-30); Chloride 98 mmol/L (98-107); Estimated CRCL calculation 105 ml/min; Estimated Glomerular Filt Rate > 60; Glucose 133 mg/dL (65-110); Potassium 3.9 mmol/L (3.4-5.0); Sodium 135 mmol/L (137-145)
[2021-10-16 16:28] VITALS: BP 140/93; PULSE 87; O2SAT 96
[2021-10-16 18:00] VITALS: BP 131/78; PULSE 88; RESP 18; O2SAT 98
[2021-10-16 18:35] LABS: Prothrombin Time 12.7 Seconds (11.1-14.7)
[2021-10-16 18:50] LABS: NT Pro B Type Natriuretic Pept 12 pg/mL (5-100); Troponin I < 0.012 ng/mL (0.000-0.034)
[2021-10-16 18:57] LABS: D Dimer 0.27 ug/mL (<0.48)
--- NOTE | 2021-10-16 19:41 | ED.SOB ---
HPI - SOB/Dyspnea General Chief Complaint: Shortness of Breath/Dyspnea Stated Complaint: COVID + CHEST HEAVY Time Seen by Provider: 10/16/21 17:32 Source: patient Mode of arrival: ambulatory Limitations: no limitations History of Present Illness HPI Narrative: Patient is a 46-year-old male complaining of shortness of breath accompanied by cough and chest tightness that started 2 days ago. Patient states that he recently tested positive for Covid. Patient states that his chest tightness is worse when he coughs. Cough is productive, whitish-yellowish sputum. Patient denies any abdominal pain, nausea, vomiting, or diaphoresis. Patient states that he had a fever 2 days ago but not today. Patient states that he had a recent cardiac stress test done approximately 2 months ago at another hospital and was told that everything was good . Related Data Home Medications Medication Instructions Recorded Confirmed baclofen 10 mg tablet 10 mg PO QID tablet 09/23/19 blood sugar diagnostic #10 each 09/23/19 blood sugar diagnostic #10 each 09/23/19 lancets 33 gauge #100 each 09/23/19 metformin 1,000 mg tablet 1,000 mg PO DAILY 09/23/19 nitroglycerin 0.4 mg sublingual 0.4 mg SUBLINGUAL Q5M PRN 09/23/19 tablet allopurinol 300 mg PO DAILY 12/08/19 amlodipine 10 mg PO DAILY 12/08/19 chlorthalidone 50 mg PO DAILY 12/08/19 methylphenidate HCl 20 mg PO BID 12/08/19 sitagliptin [Januvia] 100 mg PO DAILY 12/08/19 albuterol sulfate INHALATION 12/21/19 Allergies Allergy/AdvReac Type Severity Reaction Status Date / Time Penicillins Allergy Severe Anaphylactic Verified 03/06/21 03:24 Shock lisinopril Allergy Unknown Cough Verified 03/06/21 03:24 [facility] Past Medical History Medical History Carpal tunnel syndrome Diabetes mellitus Essential hypertension Gastric reflux Hyperglycinemia Obesity Osteoarthritis of both knees Sleep apnea Surgical History Surgical History No pertinent past surgical history Family History Family History Mother Diabetes mellitus Hypertension Father Hypertension Family history of cardiovascular disease Social History Social History Smoking status: Current every day smoker Alcohol intake: current Gender identity (if verbalized by the patient): Male Course Vital Signs Vital signs: Vital Signs Temperature 35.9 C L 10/16/21 13:52 Pulse Rate 87 10/16/21 13:52 Respiratory Rate 18 10/16/21 13:52 Blood Pressure 140/81 10/16/21 13:52 Pulse Oximetry 100 10/16/21 13:52 Temperature 35.9 C L 10/16/21 13:52 Pulse Rate 88 10/16/21 18:00 Respiratory Rate 18 10/16/21 18:00 Blood Pressure 131/78 10/16/21 18:00 Pulse Oximetry 98 10/16/21 18:00 MDM - SOB/Dyspnea MDM Narrative Medical decision making narrative: I reviewed his labs, EKG and chest x-ray. CBC within normal limits. Chemistry within normal limits. 2 sets of troponin normal. EKG normal sinus rhythm, no acute ischemia, normal EKG. The cause of patient symptoms is due to his Covid infection. Heart score: 2. Advised patient to follow-up with his primary care physician tomorrow for possible outpatient monoclonal infusion if he qualifies. He verbalized understanding of the plan and states that he would comply. Differential Diagnosis Differential diagnosis: Likely acute exacerbation of chronic obstructive airways disease, community acquired pneumonia, asthma with exacerbation and pulmonary embolism Lab Data Attestation: I reviewed the patient's lab results. Result diagrams: 10/16/21 14:11 10/16/21 14:11 Labs: Lab Results 10/16/21 10/16/21 10/16/21 Range/Units 14:11 14:11 18:14 WBC 9.0 (4.5-10.0) K/mm3 RBC 5.33
[2021-10-16 19:56] VITALS: BP 132/89; PULSE 99; RESP 18; O2SAT 98
[2021-10-16 21:00] VITALS: BP 136/86; PULSE 98; RESP 18; TEMP 37.9; O2SAT 99
[2021-10-16 21:44] LABS: Troponin I < 0.012 ng/mL (0.000-0.034)
[2021-10-16 22:00] VITALS: BP 134/84; PULSE 95; RESP 18; O2SAT 98
== END 2021-10-16 22:01 | disposition home or self-care (01) ==
PROVIDERS: Emergency Medicine; Emergency Provider Emergency Medicine; PCP Anesthesiology
DX: U07.1 COVID-19 (principal); J12.82 Pneumonia due to coronavirus disease 2019; R07.9 Chest pain, unspecified; E11.9 Type 2 diabetes mellitus without complications; Z79.4 Long term (current) use of insulin; I10 Essential (primary) hypertension; K21.9 Gastro-esophageal reflux disease without esophagitis
CPT/HCPCS: 36415; 71046; 80053; 83880; 84484; 85025; 85380; 85610; 85730; 93005; 99284

== ENCOUNTER 2022-05-01 05:13 | Emergency (ER) | payer OTHER, SELFPAY ==
[2022-05-01 05:19] VITALS: BP 124/83; PULSE 83; RESP 20; TEMP 36.8; O2SAT 98
--- NOTE | 2022-05-01 05:54 | ED.NAVMDI ---
HPI - Nausea/Vomiting/Diarrhea General Chief complaint: Nausea/Vomiting/Diarrhea Stated complaint: Nausea/Vomitting Time Seen by Provider: 05/01/22 05:20 History of Present Illness HPI Narrative: Patient is a 46-year-old male who presents ER with reports of diarrhea. Began at midnight. Reports he has had approximately 100 episodes of diarrhea. Reports large volume. No nausea or vomiting. He also feels like he had 3 hard heartbeats that concerned him. No chest pain or chest pressure. No nausea chest. Reports he was seen yesterday at [facility] just for general fatigue. Patient reports he is diabetic and has not been checking his blood sugars and would like an Accu-Chek at this time. Patient reports no one else is sick around him. No recent antibiotics on chart review. Related Data Home Medications Medication Instructions Recorded Confirmed baclofen 10 mg tablet 10 mg PO QID 09/23/19 blood sugar diagnostic #10 ea 09/23/19 blood sugar diagnostic ([employer] #10 ea 09/23/19 Ultra Blue Test Strip) lancets 33 gauge ([employer] ea 09/23/19 Lancets) metformin 1,000 mg tablet 1,000 mg PO DAILY 09/23/19 nitroglycerin 0.4 mg sublingual 0.4 mg sublingual Q5M PRN Pain 09/23/19 tablet allopurinol 300 mg tablet 300 mg PO DAILY 12/08/19 amlodipine 10 mg tablet 10 mg PO DAILY 12/08/19 chlorthalidone 50 mg tablet 50 mg PO DAILY 12/08/19 methylphenidate HCl 20 mg tablet 20 mg PO BID 12/08/19 sitagliptin 100 mg tablet (Januvia) 100 mg PO DAILY 12/08/19 albuterol sulfate 90 mcg/actuation inhalation 12/21/19 aerosol inhaler Allergies Allergy/AdvReac Type Severity Reaction Status Date / Time Penicillins Allergy Severe Anaphylactic Verified 03/06/21 03:24 Shock lisinopril Allergy Unknown Cough Verified 03/06/21 03:24 Review of Systems Review of Systems: All systems reviewed & are unremarkable except as noted in HPI and below Constitutional: Constitutional: Denies chills, Reports fatigue and Denies fever(s) ENT: Denies nasal congestion and Denies sore throat Cardiovascular: Cardiovascular: Denies chest pain and Denies radiating jaw, neck or arm pain Comments: Hard heartbeat Respiratory: Respiratory: Denies cough, Denies dyspnea and Denies wheezing Gastrointestinal: Gastrointestinal: Denies abdominal pain, Denies constipation, Reports diarrhea, Denies nausea and Denies vomiting Genitourinary: Genitourinary: Denies dysuria and Denies urinary frequency PMF Past Medical History Medical History Carpal tunnel syndrome Diabetes mellitus Essential hypertension Gastric reflux Hyperglycinemia Obesity Osteoarthritis of both knees Sleep apnea Surgical History Surgical History No pertinent past surgical history Family History Family History Mother Diabetes mellitus Hypertension Father Hypertension Family history of cardiovascular disease Social History Social History Smoking status: Current every day smoker Alcohol intake: current Gender identity (if verbalized by the patient): Male Exam Narrative: GENERAL: Well-appearing, morbidly obese, and in no acute distress. HEAD: Normocephalic, atraumatic. ENT: Mucous membranes moist. CHEST: Clear to auscultation. No respiratory distress. HEART: Regular rate and rhythm. Normal peripheral pulses. ABDOMEN: Soft, nontender, nondistended, normal active bowel sounds. EXTREMITIES: Normal range of motion. No edema. SKIN: Warm, dry, no rash. NEURO: Alert and oriented x3. PSYCH: Normal mood and affect. Course Course Emergency Course: Labs unremarkable. Patient hydrated. We will give a dose of Imodium. Discharge home. Vital Signs Vital signs: Vital Signs Temperature
[2022-05-01 06:13] LABS: Basophils Absolute Auto 0.1 K/mm3 (0.0-0.1); Basophils Percent Auto 0.9 % (0.2-1.2); Eosinophils Absolute Auto 0.8 K/mm3 (0-0.3); Eosinophils Percent Auto 9.2 % (0-4.4); Hematocrit 43.2 % (42.0-52.0); Hemoglobin 13.8 g/dL (14.0-18.0); Immature Granulocyte Absolute 0.05 K/mm3 (0.00-0.031); Immature Granulocyte Percent A 0.6 % (0-0.5); Lymphocytes Absolute Auto 2.61 K/mm3 (0.9-3.2); Lymphocytes Percent Auto 30.4 % (18.3-44.2); Mean Corpuscular HGB Conc 31.9 g/dl (32-36); Mean Corpuscular Hemoglobin 26.3 pg (26-34); Mean Corpuscular Volume 82.3 fl (80-100); Mean Platelet Volume 9.3 fl (7.4-10.4); Monocytes Absolute Auto 0.7 K/mm3 (0.1-0.6); Monocytes Percent Auto 8.2 % (2.6-8.5); Neutrophils Absolute Auto 4.4 K/mm3 (1.3-6.7); Neutrophils Percent Auto 50.7 % (45.5-73.1); Platelet Count Result 283 k/mm3 (150-375); Red Blood Count 5.25 M/mm3 (4.6-6.20); Red Cell Distribution Width 14.1 % (11.5-14.5); White Blood Count 8.6 K/mm3 (4.5-10.0)
--- NOTE | 2022-05-01 06:20 | PC.NURSE ---
Accu Check 144.
[2022-05-01 06:21] LABS: Glucose Point of Care 144 mg/dl (65-105)
[2022-05-01] MEDS: SODIUM CHLORIDE 0.9% IV 1,000 ML 999 ML IV CONT (06:21)
[2022-05-01 06:36] LABS: Alanine Aminotransferase 24 U/L (6-50); Albumin Level 4.4 g/dL (3.5-5.1); Alkaline Phosphatase 62 U/L (38-126); Anion Gap 6 mmol/L (8-16); Aspartate Amino Transferase 24 U/L (17-59); Bilirubin,Total 1.2 mg/dL (0.2-1.3); Blood Urea Nitrogen 11 mg/dL (9-20); Calcium 8.6 mg/dL (8.4-10.2); Carbon Dioxide 31 mmol/L (22-30); Chloride 101 mmol/L (98-107); Estimated CRCL calculation 142 ml/min; Estimated Glomerular Filt Rate > 60; Glucose 131 mg/dL (65-110); Lipase 183 U/L (23-300); Potassium 4.3 mmol/L (3.4-5.0); Sodium 138 mmol/L (137-145)
[2022-05-01] MEDS: LOPERAMIDE HCL 2 MG CAPSULE 4 MG PO (07:12)
[2022-05-01 08:10] VITALS: BP 148/93; PULSE 84; RESP 20
== END 2022-05-01 08:10 | disposition home or self-care (01) ==
PROVIDERS: Emergency Provider Emergency Medicine; PCP Anesthesiology
DX: K52.9 Noninfective gastroenteritis and colitis, unspecified (principal); E11.9 Type 2 diabetes mellitus without complications; Z79.84 Long term (current) use of oral hypoglycemic drugs; I10 Essential (primary) hypertension; M19.90 Unspecified osteoarthritis, unspecified site; K21.9 Gastro-esophageal reflux disease without esophagitis
CPT/HCPCS: 36415; 80053; 82948; 83690; 85025; 96360; 96361; 99283; A9270; J7030

== ENCOUNTER 2022-11-10 12:25 | Emergency (ER) | payer OTHER, SELFPAY ==
[2022-11-10] VITALS (11 sets, daily range): BP systolic 116–143; BP diastolic 63–84; PULSE 86–94; RESP 16–20; TEMP 36.7; O2SAT 95–100
--- NOTE | ~2022-11-10 | XR_ITS ---
EXAMINATION: XR chest 2V DATE: 11/10/2022 13:24 INDICATION: Shortness of breath TECHNIQUE: PA and lateral views of the chest were obtained. COMPARISON: Chest radiograph dated 10/16/2021 FINDINGS: Minimal linear discoid atelectasis at the lateral left lower lung zone. No other airspace opacities, pulmonary edema, pleural effusion or pneumothorax. The cardiomediastinal silhouette is normal. IMPRESSION: 1. Minimal discoid atelectasis in the left lower lung zone. No acute cardiopulmonary disease. Reviewed, dictated and finalized at location A. TEST DESK WORKER IMPRESSION: 1. Minimal discoid atelectasis in the left lower lung zone. No acute cardiopulm onary disease.
--- NOTE | 2022-11-10 12:47 | ECG_ITS ---
Measurements Intervals [place] Rate: 95 P: 61 NC: 164 QRS: 41 QRSD: 88 T: 19 QT: 352 QTc: 444 Interpretive Statements SINUS RHYTHM NORMAL ECG COMPARED TO ECG 10/16/2021 14:05:55 NO SIGNIFICANT CHANGES Electronically Signed On 11-10-2022 15:56:49 BUCKLE SEWER MACHINE by Charles Wade M.D.
[2022-11-10 13:36] LABS: Basophils Absolute Auto 0.1 K/mm3 (0.0-0.1); Basophils Percent Auto 0.7 % (0.2-1.2); Eosinophils Absolute Auto 0.4 K/mm3 (0-0.3); Eosinophils Percent Auto 4.6 % (0-4.4); Hematocrit 40.5 % (42.0-52.0); Hemoglobin 12.8 g/dL (14.0-18.0); Immature Granulocyte Absolute 0.05 K/mm3 (0.00-0.031); Immature Granulocyte Percent A 0.5 % (0-0.5); Lymphocytes Absolute Auto 2.91 K/mm3 (0.9-3.2); Lymphocytes Percent Auto 30.3 % (18.3-44.2); Mean Corpuscular HGB Conc 31.6 g/dl (32-36); Mean Corpuscular Volume 82.3 fl (80-100); Mean Platelet Volume 9.1 fl (7.4-10.4); Monocytes Absolute Auto 0.7 K/mm3 (0.1-0.6); Monocytes Percent Auto 7.6 % (2.6-8.5); Neutrophils Absolute Auto 5.4 K/mm3 (1.3-6.7); Neutrophils Percent Auto 56.3 % (45.5-73.1); Platelet Count Result 269 k/mm3 (150-375); Red Blood Count 4.92 M/mm3 (4.6-6.20); Red Cell Distribution Width 14.4 % (11.5-14.5); White Blood Count 9.6 K/mm3 (4.5-10.0)
[2022-11-10 14:26] LABS: Alanine Aminotransferase 28 U/L (6-50); Albumin Level 4.4 g/dL (3.5-5.1); Alkaline Phosphatase 47 U/L (38-126); Anion Gap 7 mmol/L (8-16); Aspartate Amino Transferase 26 U/L (17-59); Bilirubin,Total 0.9 mg/dL (0.2-1.3); Blood Urea Nitrogen 13 mg/dL (9-20); Calcium 9.1 mg/dL (8.4-10.2); Carbon Dioxide 29 mmol/L (22-30); Chloride 100 mmol/L (98-107); Estimated CRCL calculation 106 ml/min; Estimated Glomerular Filt Rate > 60; Glucose 131 mg/dL (65-110); Potassium 3.7 mmol/L (3.4-5.0); Sodium 136 mmol/L (137-145)
--- NOTE | 2022-11-10 15:45 | ED.SOB ---
HPI - SOB/Dyspnea General Chief Complaint: Shortness of Breath/Dyspnea Stated Complaint: sob Time Seen by Provider: 11/10/22 15:23 History of Present Illness HPI Narrative: Patient is a 47-year-old male with a history of hypertension, diabetes presenting with cough and shortness of breath. Patient states that for the last several days he has had a productive cough with intermittent shortness of breath. States that it is not really exertional but he feels short of breath especially after coughing. Denies any chest pain, palpitations, lightheadedness. No fevers or chills, abdominal pain, vomiting, diarrhea, leg swelling. States that he got his flu shot just last week. Related Data Home Medications Medication Instructions Recorded Confirmed baclofen 10 mg tablet 10 mg PO QID 09/23/19 blood sugar diagnostic #10 ea 09/23/19 blood sugar diagnostic (OneTouch #10 ea 09/23/19 Ultra Blue Test Strip) lancets 33 gauge ([employer]Touch Delica #100 ea 09/23/19 Lancets) metformin 1,000 mg tablet 1,000 mg PO DAILY 09/23/19 nitroglycerin 0.4 mg sublingual 0.4 mg sublingual Q5M PRN Pain 09/23/19 tablet allopurinol 300 mg tablet 300 mg PO DAILY 12/08/19 amlodipine 10 mg tablet 10 mg PO DAILY 12/08/19 chlorthalidone 50 mg tablet 50 mg PO DAILY 12/08/19 methylphenidate HCl 20 mg tablet 20 mg PO BID 12/08/19 sitagliptin phosphate 100 mg 100 mg PO DAILY 12/08/19 tablet (Januvia) albuterol sulfate 90 mcg/actuation inhalation 12/21/19 aerosol inhaler Allergies Allergy/AdvReac Type Severity Reaction Status Date / Time Penicillins Allergy Severe Anaphylactic Verified 03/06/21 03:24 Shock lisinopril Allergy Unknown Cough Verified 03/06/21 03:24 Review of Systems Review of Systems: All systems reviewed & are unremarkable except as noted in HPI and below PMFSH Past Medical History Medical History Carpal tunnel syndrome Diabetes mellitus Essential hypertension Gastric reflux Hyperglycinemia Obesity Osteoarthritis of both knees Sleep apnea Surgical History Surgical History No pertinent past surgical history Family History Family History Mother Diabetes mellitus Hypertension Father Hypertension Family history of cardiovascular disease Social History Social History Smoking status: Current every day smoker Alcohol intake: current Gender identity (if verbalized by the patient): Male Exam Narrative: GENERAL: Well-appearing, well-nourished, and in no acute distress. HEAD: Normocephalic, atraumatic. EYES: PERRLA and EOMI. ENT: Nares clear, no rhinorrhea or epistaxis. Mucous membranes moist. NECK: Supple. CHEST: Clear to auscultation. No respiratory distress. HEART: Regular rate and rhythm. No murmur heard. Normal peripheral pulses. ABDOMEN: Soft, nontender, nondistended, normal active bowel sounds. EXTREMITIES: Normal range of motion. No edema. SKIN: Warm, dry, no rash. NEURO: No focal deficits. Alert and oriented x3. PSYCH: Normal mood and affect. Course Vital Signs Vital signs: Vital Signs Temperature 98.1 F 11/10/22 13:10 Pulse Rate 94 11/10/22 13:10 Respiratory Rate 16 11/10/22 13:10 Blood Pressure 116/75 11/10/22 13:10 Pulse Oximetry 95 11/10/22 13:10 Temperature 98.1 F 11/10/22 13:10 Pulse Rate 86 11/10/22 16:31 Respiratory Rate 18 11/10/22 16:31 Blood Pressure 133/84 11/10/22 16:31 Pulse Oximetry 97 11/10/22 16:31 Oxygen Delivery Room Air 11/10/22 14:51 MDM - SOB/Dyspnea MDM Narrative Medical decision making narrative: Patient is a 47-year-old male presenting with cough and shortness of breath. Vitals are within normal limits. Exam is unremarkable. Lungs are clear. Blood work is unremarkable. Chest x-r
[2022-11-10 16:43] LABS: Influenza A QL RT-PCR Negative (Negative); Influenza B QL RT-PCR Negative (Negative); RSV RNA, RT-PCR Negative (Negative); SARS-CoV-2 RNA PCR Negative
== END 2022-11-10 17:32 | disposition home or self-care (01) ==
PROVIDERS: Emergency Provider Emergency Medicine; PCP Anesthesiology
DX: R05.9 Cough, unspecified (principal); Z20.822 Contact with and (suspected) exposure to COVID-19; I10 Essential (primary) hypertension; E11.9 Type 2 diabetes mellitus without complications; Z79.84 Long term (current) use of oral hypoglycemic drugs; K21.9 Gastro-esophageal reflux disease without esophagitis
CPT/HCPCS: 36415; 71046; 80053; 85025; 87637; 93005; 99284

== ENCOUNTER 2023-01-29 08:46 | Emergency (ER) | payer OTHER, SELFPAY ==
--- NOTE | ~2023-01-29 | US_ITS ---
EXAMINATION: US venous doppler [facility] DATE: 01/29/2023 10:26 INDICATION: Left calf pain. TECHNIQUE: Grayscale ultrasound images without and with compression and Doppler ultrasound images of the left lower extremity veins were obtained. COMPARISON: None. FINDINGS: The visualized portions of left common femoral vein, profunda (deep) femoral vein, femoral vein, popl iteal vein, peroneal veins, posterior tibial veins, and greater saphenous vein outflow are patent. IMPRESSION: 1. No deep venous thrombosis. Reviewed, dictated and finalized at location A.
--- NOTE | ~2023-01-29 | XR_ITS ---
EXAMINATION: XR knee LT 3V DATE: 01/29/2023 10:30 INDICATION: Left knee pain. TECHNIQUE: 3 views of left knee were obtained. COMPARISON: Left knee radiographs 08/03/2019 FINDINGS: Bone alignment is normal. No fracture. There is mild tricompartmental osteoarthritis. There is chondrocalcinosis of the [place]. No knee joint effusion. IMPRESSION: 1. Mild left knee osteoarthritis. Reviewed, dictated and finalized at location A.
[2023-01-29 08:54] VITALS: BP 141/68; PULSE 89; RESP 18; TEMP 36.1; O2SAT 99
[2023-01-29 09:28] LABS: Basophils Absolute Auto 0.1 K/mm3 (0.0-0.1); Basophils Percent Auto 0.8 % (0.2-1.2); Eosinophils Absolute Auto 0.3 K/mm3 (0-0.3); Eosinophils Percent Auto 4.6 % (0-4.4); Hematocrit 38.9 % (42.0-52.0); Hemoglobin 12.9 g/dL (14.0-18.0); Immature Granulocyte Absolute 0.03 K/mm3 (0.00-0.031); Immature Granulocyte Percent A 0.4 % (0-0.5); Lymphocytes Absolute Auto 1.71 K/mm3 (0.9-3.2); Mean Corpuscular HGB Conc 33.2 g/dl (32-36); Mean Corpuscular Volume 78.4 fl (80-100); Monocytes Absolute Auto 0.7 K/mm3 (0.1-0.6); Monocytes Percent Auto 8.9 % (2.6-8.5); Neutrophils Absolute Auto 4.6 K/mm3 (1.3-6.7); Neutrophils Percent Auto 62.3 % (45.5-73.1); Platelet Count Result 288 k/mm3 (150-375); Red Blood Count 4.96 M/mm3 (4.6-6.20); Red Cell Distribution Width 14.5 % (11.5-14.5); White Blood Count 7.4 K/mm3 (4.5-10.0)
--- NOTE | 2023-01-29 09:35 | ED.EXTPRO ---
HPI - Extremity Problem General Chief complaint: Extremity Problem,Nontraumatic Stated complaint: reports bilateral knee pain, difficulty walking Time Seen by Provider: 01/29/23 09:38 History of Present Illness HPI Narrative: Patient is a 47-year-old male here for evaluation of atraumatic left knee pain and swelling for the past 3 days. States the pain is severe and walking has been difficult. Has a history of arthritis in the knee and has had cortisone injections in the past, feels similar. no fevers, chills, paresthesias, weakness. Concerned about a DVT due to recent bariatric surgery at the end of December. He attempted one of his postop [facility] but he states it upset his stomach. Related Data Home Medications Medication Instructions Recorded Confirmed baclofen 10 mg tablet 10 mg PO QID 09/23/19 blood sugar diagnostic #10 ea 09/23/19 blood sugar diagnostic (OneTouch #10 ea 09/23/19 Ultra Blue Test Strip) lancets 33 gauge ([employer] Delica #100 ea 09/23/19 Lancets) metformin 1,000 mg tablet 1,000 mg PO DAILY 09/23/19 nitroglycerin 0.4 mg sublingual 0.4 mg sublingual Q5M PRN Pain 09/23/19 tablet allopurinol 300 mg tablet 300 mg PO DAILY 12/08/19 amlodipine 10 mg tablet 10 mg PO DAILY 12/08/19 chlorthalidone 50 mg tablet 50 mg PO DAILY 12/08/19 methylphenidate HCl 20 mg tablet 20 mg PO BID 12/08/19 sitagliptin phosphate 100 mg 100 mg PO DAILY 12/08/19 tablet (Januvia) albuterol sulfate 90 mcg/actuation inhalation 12/21/19 aerosol inhaler Allergies Allergy/AdvReac Type Severity Reaction Status Date / Time Penicillins Allergy Severe Anaphylactic Verified 01/29/23 09:51 Shock lisinopril Allergy Unknown Cough Verified 01/29/23 09:51 Review of Systems Review of Systems: Gen.: Denies fevers or chills Eyes: Denies eye pain or visual change ENT: Denies congestion Respiratory: Denies shortness of breath or cough CV: Denies chest pain or palpitations GI: Denies abdominal pain nausea, emesis or diarrhea denies burning, urgency, frequency or hematuria Musculoskeletal: Reports left knee pain Neuro: Denies numbness, tingling, weakness or focal weakness Skin: Denies rash Except as documented, all other systems reviewed and negative [facility] Past Medical History Medical History Carpal tunnel syndrome Diabetes mellitus Essential hypertension Gastric reflux Hyperglycinemia Obesity Osteoarthritis of both knees Sleep apnea Surgical History Surgical History No pertinent past surgical history Family History Family History Mother Diabetes mellitus Hypertension Father Hypertension Family history of cardiovascular disease Social History Social History Smoking status: Current every day smoker Alcohol intake: current Gender identity (if verbalized by the patient): Male Exam Narrative: APPEARANCE: Obese, sitting in wheelchair Head: Normocephalic and atraumatic. EYES: PERRLA/EOMI, conjunctivae clear NOSE: No nasal drainage EARS: External ear normal in appearance THROAT: Oropharynx is clear. Mucous membranes are moist. NECK: Supple. No adenopathy, no masses. RESPIRATORY: Airway patent, respirations nonlabored. Clear to auscultation bilaterally, no rales, rhonchi, wheezing. CARDIOVASCULAR: Strong DP and PT pulses bilaterally. Regular rate and rhythm without murmurs, rubs, or gallops. ABDOMINAL: Normoactive bowel sounds. Soft, nontender, nondistended. No rebound tenderness or guarding. MUSCULOSKELETAL: There is no bony tenderness to palpation of the left patella. No tenderness to palpation of the calf. No obvious redness or swelling. Extremities are warm and well-perfused. Moves all extremities well. No edema. NEURO: Normal speech. No focal neurologic
[2023-01-29 09:39] LABS: INR 1.2; Prothrombin Time 14.7 Seconds (11.1-14.7)
[2023-01-29 09:40] LABS: Partial Thromboplastin Time 34.7 SECONDS (22.3-36.8)
[2023-01-29 09:45] LABS: Anion Gap 5 mmol/L (8-16); Blood Urea Nitrogen 10 mg/dL (9-20); Carbon Dioxide 27 mmol/L (22-30); Chloride 105 mmol/L (98-107); Estimated CRCL calculation 140 ml/min; Estimated Glomerular Filt Rate > 60; Glucose 134 mg/dL (65-110); Potassium 4.1 mmol/L (3.4-5.0); Sodium 137 mmol/L (137-145)
[2023-01-29] MEDS: ACETAMINOPHEN 325 MG TABLET 650 MG PO (09:59)
[2023-01-29 10:55] VITALS: BP 126/81; PULSE 79; RESP 18; O2SAT 98
[2023-01-29] MEDS: HYDROcodone/acetaminophen (*CRX) 5-325 MG TABLET 1 TAB PO (10:57)
== END 2023-01-29 11:10 | disposition home or self-care (01) ==
PROVIDERS: Emergency Provider Physician Assistant
DX: M17.12 Unilateral primary osteoarthritis, left knee (principal); M79.662 Pain in left lower leg; E11.9 Type 2 diabetes mellitus without complications; I10 Essential (primary) hypertension; F17.200 Nicotine dependence, unspecified, uncomplicated
CPT/HCPCS: 36415; 73562; 80048; 85025; 85610; 85730; 93971; 99284; A9270

== ENCOUNTER 2023-07-22 11:17 | Emergency (ER) | payer OTHER, SELFPAY ==
--- NOTE | ~2023-07-22 | XR_ITS ---
EXAMINATION: XR foot RT min 3V DATE: 07/22/2023 15:21 INDICATION: Right foot pain and swelling TECHNIQUE: Dorsoplantar, lateral, and 2 oblique views of the right foot were obtained. COMPARISON: None. FINDINGS: Bone alignment is normal. There is no fracture. There is soft tissue swelling of ankle and hindfoot. There is mild osteoarthritis of multiple interphalangeal joints. IMPRESSION: 1. No acute osseous abnormality. Reviewed, dictated and finalized at location L.
--- NOTE | ~2023-07-22 | XR_ITS ---
EXAMINATION: XR ankle RT min 3V INDICATION: Right ankle swelling TECHNIQUE: Four views of the right ankle are obtained. COMPARISON: None available FINDINGS: Bone alignment is normal. There is no fracture. There is soft tissue swelling of the ankle and hindfoot. IMPRESSION: 1. Soft tissue swelling without acute osseous abnormality. Reviewed, dictated and finalized at location L.
[2023-07-22 12:29] VITALS: BP 143/85; PULSE 76; RESP 14; TEMP 36.6; O2SAT 100
--- NOTE | 2023-07-22 16:26 | ED.GENADULT ---
HPI - General Adult General Chief complaint: Extremity Injury, Lower Stated complaint: right ankle swelling - denies injury Time Seen by Provider: 07/22/23 15:42 History of Present Illness HPI narrative: Luis Pineda is a 47 y/o male who presents with reports of having pain to his right foot that started about 1 week ago, he states that he went to an and was given a steroid shot and pain improved but it seems to be getting worse now over the past couple days. 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 He denies any known trauma or injury to his right foot or right ankle, but having some swelling to his right ankle and right foot with increased pain. Related Data Home Medications Medication Instructions Recorded Confirmed baclofen 10 mg tablet 10 mg PO QID 09/23/19 blood sugar diagnostic #10 ea 09/23/19 blood sugar diagnostic (OneTouch #10 ea 09/23/19 Ultra Blue Test Strip) lancets 33 gauge ([employer] Delica #100 ea 09/23/19 Lancets) metformin 1,000 mg tablet 1,000 mg PO DAILY 09/23/19 nitroglycerin 0.4 mg sublingual 0.4 mg sublingual Q5M PRN Pain 09/23/19 tablet allopurinol 300 mg tablet 300 mg PO DAILY 12/08/19 amlodipine 10 mg tablet 10 mg PO DAILY 12/08/19 chlorthalidone 50 mg tablet 50 mg PO DAILY 12/08/19 methylphenidate HCl 20 mg tablet 20 mg PO BID 12/08/19 sitagliptin phosphate 100 mg 100 mg PO DAILY 12/08/19 tablet (Januvia) albuterol sulfate 90 mcg/actuation inhalation 12/21/19 aerosol inhaler Allergies Allergy/AdvReac Type Severity Reaction Status Date / Time Penicillins Allergy Severe Anaphylactic Verified 07/22/23 11:17 Shock lisinopril Allergy Unknown Cough Verified 07/22/23 11:17 Review of Systems Review of Systems: CONSTITUTIONAL: Denies fever, chills, or sweats. EYES: Denies visual changes, redness, or discharge. ENT: Denies rhinorrhea, congestion, sore throat, or otalgia. CARDIOVASCULAR: Denies chest pain, palpitations, or edema. RESPIRATORY: Denies cough or dyspnea. GASTROINTESTINAL: Denies abdominal pain, nausea, vomiting, or diarrhea. GENITOURINARY: Denies dysuria or hematuria. SKIN: Denies rash or itching. MUSCULOSKELETAL: Complains of pain to his right ankle/ right foot that initially started over a week ago, improved and now seems to be getting worse over the past 2 days. NEUROLOGIC: Denies headache, numbness, dizziness, or weakness. PSYCHIATRIC: Denies anxiety or depression. PMFSH Past Medical History Medical History Carpal tunnel syndrome Diabetes mellitus Essential hypertension Gastric reflux Hyperglycinemia Obesity Osteoarthritis of both knees Sleep apnea Surgical History Surgical History No pertinent past surgical history Family History Family History Mother Diabetes mellitus Hypertension Father Hypertension Family history of cardiovascular disease Social History Social History Smoking status: Current every day smoker Alcohol intake: current Gender identity (if verbalized by the patient): Male Exam Narrative: GENERAL: Well-appearing, well-nourished, and in no acute distress. HEAD: Normocephalic, atraumatic. EYES: PERRLA and EOMI. ENT: Nares clear, no rhinorrhea or epistaxis. Mucous membranes moist. Oropharynx without tonsillar hypertrophy exudate or other lesions. NECK: Supple. No adenopathy or masses. No carotid bruits or JVD CHEST: Clear to auscultation. No respiratory distress. No wheezes rales or rhonchi HEART: Regular rate and rhythm. No murmur heard. Normal peripheral pulses. ABDOMEN: Soft, nontender, nondistended, normal active bowel sounds. EXTREMITIES: Normal range of motion. Swelling to the right ankle, pain distributed around the whole ankle/ foot but no pain noted with palpation, pulses
[2023-07-22] MEDS: HYDROcodone/acetaminophen (*CRX) 5-325 MG TABLET 1 TAB PO (16:28)
[2023-07-22] MEDS: CYCLOBENZAPRINE HCL 10 MG TABLET PO (16:29)
--- NOTE | 2023-07-22 16:36 | PC.NURSE ---
Pt states can not take Naproxyn due to bariatric surgery, provider informed
[2023-07-22 17:11] VITALS: BP 140/80; PULSE 78; RESP 16; TEMP 36.7; O2SAT 99
== END 2023-07-22 17:14 | disposition home or self-care (01) ==
PROVIDERS: Emergency Provider Nurse Practitioner Family
DX: S93.401A Sprain of unspecified ligament of right ankle, initial encounter (principal); S96.911A Strain of unspecified muscle and tendon at ankle and foot level, right foot, initial encounter; E11.9 Type 2 diabetes mellitus without complications; I10 Essential (primary) hypertension; F17.200 Nicotine dependence, unspecified, uncomplicated; X58.XXXA Exposure to other specified factors, initial encounter
CPT/HCPCS: 73610; 73630; 99283; A9270

== ENCOUNTER 2024-05-05 01:21 | Emergency (ER) | payer OTHER, SELFPAY ==
--- NOTE | ~2024-05-05 | XR_ITS ---
EXAMINATION: XR_[id number]_CR DATE: 05/05/2024 02:12 INDICATION: Neck pain. TECHNIQUE: 4 views of cervical spine were obtained. COMPARISON: None. FINDINGS: There is mild kyphosis of cervical spine. There is 3 degrees dextrocurvature of cervical sp ine. Vertebral body heights are normal. Intervertebral disc heights are normal. There is multilevel m ild uncovertebral joint and facet joint osteoarthritis. There is mild central canal stenosis at C3-C4 . No prevertebral soft tissue swelling. IMPRESSION: 1. Mild cervical spondylosis. Reviewed, dictated and finalized at location A.
[2024-05-05 01:31] VITALS: BP 147/90; PULSE 88; RESP 18; TEMP 37.4; O2SAT 100
--- NOTE | 2024-05-05 01:47 | ED.GENADULT ---
HPI - General Adult General Chief complaint: Back Pain/Injury Stated complaint: back pain, chills Time Seen by Provider: 05/05/24 01:34 History of Present Illness HPI narrative: patient is a 48-year-old gentleman who presents emergency department with chief complaint of neck pain and spasms. 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 The patient does report that when he was hurting he was having chills. Related Data Home Medications Medication Instructions Recorded Confirmed baclofen 10 mg tablet 10 mg PO QID 09/23/19 blood sugar diagnostic #10 ea 09/23/19 blood sugar diagnostic (OneTouch #10 ea 09/23/19 Ultra Blue Test Strip) lancets 33 gauge (OneTouch Delica #100 ea 09/23/19 Lancets) metformin 1,000 mg tablet 1,000 mg PO DAILY 09/23/19 nitroglycerin 0.4 mg sublingual 0.4 mg sublingual Q5M PRN Pain 09/23/19 tablet allopurinol 300 mg tablet 300 mg PO DAILY 12/08/19 amlodipine 10 mg tablet 10 mg PO DAILY 12/08/19 chlorthalidone 50 mg tablet 50 mg PO DAILY 12/08/19 methylphenidate HCl 20 mg tablet 20 mg PO BID 12/08/19 sitagliptin phosphate 100 mg 100 mg PO DAILY 12/08/19 tablet (Januvia) albuterol sulfate 90 mcg/actuation inhalation 12/21/19 aerosol inhaler Allergies Allergy/AdvReac Type Severity Reaction Status Date / Time Penicillins Allergy Severe Anaphylactic Verified 05/05/24 01:37 Shock lisinopril Allergy Unknown Cough Verified 05/05/24 01:37 Review of Systems Review of Systems: A 10 system review of systems was completed on the patient and is negative except for what is stated in the HPI. Nursing and ancillary documentation was reviewed. [facility] Past Medical History Medical History Carpal tunnel syndrome Diabetes mellitus Essential hypertension Gastric reflux Hyperglycinemia Obesity Osteoarthritis of both knees Sleep apnea Surgical History Surgical History No pertinent past surgical history Family History Family History Mother Diabetes mellitus Hypertension Father Hypertension Family history of cardiovascular disease Social History Social History Smoking status: Current every day smoker Alcohol intake: current Gender identity (if verbalized by the patient): Male Exam Narrative: GENERAL: Well-appearing, well-nourished, and in no acute distress. HEAD: Normocephalic, atraumatic. EYES: PERRLA and EOMI. ENT: Nares clear, no rhinorrhea or epistaxis. Mucous membranes moist. NECK: Supple. Tenderness to palpation in the paraspinous muscles and along the midline. CHEST: Clear to auscultation. No respiratory distress. HEART: Regular rate and rhythm. No murmur heard. Normal peripheral pulses. ABDOMEN: Soft, nontender, nondistended, normal active bowel sounds. EXTREMITIES: Normal range of motion. No edema. SKIN: Warm, dry, no rash. NEURO: No focal deficits. Alert and oriented x3. GCS 15 moves all extremities equally PSYCH: Normal mood and affect. Course Vital Signs Vital signs: Vital Signs Temperature 37.4 C 05/05/24 01:31 Pulse Rate 88 05/05/24 01:31 Respiratory Rate 18 05/05/24 01:31 Blood Pressure 147/90 H 05/05/24 01:31 Pulse Oximetry 100 05/05/24 01:31 Oxygen Delivery Room Air 05/05/24 01:31 Temperature 37.4 C 05/05/24 01:31 Pulse Rate 88 05/05/24 01:31 Respiratory Rate 18 05/05/24 01:31 Blood Pre
[2024-05-05] MEDS: diazePAM INJ (*CRX) 10 MG/2 ML SYRINGE 5 MG IV PUSH (02:14)
[2024-05-05] MEDS: KETOROLAC 30 MG/ML VIAL (*BKC) IV PUSH (02:14)
[2024-05-05] MEDS: ORPHENADRINE CITRATE 100 MG TABLET.ER PO (02:14)
[2024-05-05] MEDS: HYDROcodone/acetaminophen (*CRX) 5-325 MG TABLET 1 TAB PO (02:14)
[2024-05-05 02:17] LABS: Basophils Absolute Auto 0.1 K/mm3 (0.0-0.1); Basophils Percent Auto 0.5 % (0.2-1.2); Eosinophils Absolute Auto 0.4 K/mm3 (0-0.3); Eosinophils Percent Auto 3.7 % (0-4.4); Hematocrit 41.6 % (42.0-52.0); Hemoglobin 13.9 g/dL (14.0-18.0); Immature Granulocyte Absolute 0.07 K/mm3 (0.00-0.031); Immature Granulocyte Percent A 0.7 % (0-0.5); Lymphocytes Absolute Auto 2.77 K/mm3 (0.9-3.2); Lymphocytes Percent Auto 25.9 % (18.3-44.2); Mean Corpuscular HGB Conc 33.4 g/dl (32-36); Mean Corpuscular Hemoglobin 27.4 pg (26-34); Mean Corpuscular Volume 82.1 fl (80-100); Mean Platelet Volume 9.6 fl (7.4-10.4); Monocytes Absolute Auto 0.8 K/mm3 (0.1-0.6); Monocytes Percent Auto 7.7 % (2.6-8.5); Neutrophils Absolute Auto 6.6 K/mm3 (1.3-6.7); Neutrophils Percent Auto 61.5 % (45.5-73.1); Platelet Count Result 240 k/mm3 (150-375); Red Blood Count 5.07 M/mm3 (4.6-6.20); Red Cell Distribution Width 13.2 % (11.5-14.5); White Blood Count 10.7 K/mm3 (4.5-10.0)
[2024-05-05 02:37] LABS: Alanine Aminotransferase 19 U/L (6-50); Albumin Level 4.7 g/dL (3.5-5.1); Alkaline Phosphatase 73 U/L (38-126); Anion Gap 7 mmol/L (4-12); Aspartate Amino Transferase 21 U/L (17-59); Bilirubin,Total 0.9 mg/dL (0.2-1.3); Blood Urea Nitrogen 14 mg/dL (9-20); Calcium 9.3 mg/dL (8.4-10.2); Carbon Dioxide 31 mmol/L (22-30); Chloride 103 mmol/L (98-107); Estimated CRCL calculation 158 ml/min; Estimated Glomerular Filt Rate > 60; Glucose 136 mg/dL (65-110); Potassium 4.1 mmol/L (3.4-5.0); Sodium 141 mmol/L (137-145)
== END 2024-05-05 03:39 | disposition home or self-care (01) ==
PROVIDERS: Emergency Provider Emergency Medicine
DX: M43.6 Torticollis (principal); I10 Essential (primary) hypertension; E11.9 Type 2 diabetes mellitus without complications; E66.9 Obesity, unspecified; Z68.41 Body mass index [BMI] 40.0-44.9, adult; K21.9 Gastro-esophageal reflux disease without esophagitis; M17.0 Bilateral primary osteoarthritis of knee; G47.30 Sleep apnea, unspecified; F17.200 Nicotine dependence, unspecified, uncomplicated; Z79.899 Other long term (current) drug therapy; Z79.84 Long term (current) use of oral hypoglycemic drugs
CPT/HCPCS: 36415; 72040; 80053; 83735; 85025; 96374; 96375; 99284; A9270; J1885; J3360

== ENCOUNTER 2024-05-09 21:30 | Emergency (ER) | payer OTHER, SELFPAY ==
--- NOTE | ~2024-05-09 | XR_ITS ---
Portable chest x-ray Comparison: 11/10/2022 Clinical History: Lower extremity edema, shortness of breath Findings: Lungs are clear, without focal consolidation or pleural effusion. Cardiomediastinal silho uette is stable. Bones and soft tissues are unremarkable. Impression: Clear lungs. Reviewed, dictated and finalized at location . Impression: Clear lungs.
--- NOTE | 2024-05-09 21:33 | ECG_ITS ---
Test Date: 2024-05-09 21:37:05 Measurements Intervals [place] Rate: 85 P: 50 OR: 140 QRS: 26 QRSD: 118 T: 33 QT: 369 QTc: 439 Interpretive Statements SINUS RHYTHM NORMAL ELECTROCARDIOGRAM No previous ECG available for comparison Electronically Signed On 05-10-2024 07:27:09 CDT by Parveen Joshua M.D.
[2024-05-09 21:39] VITALS: BP 135/83; PULSE 85; RESP 16; TEMP 36.6; O2SAT 100
[2024-05-09 22:05] VITALS: O2SAT 100
[2024-05-09 22:06] VITALS: PULSE 79
[2024-05-09 23:02] LABS: Basophils Absolute Auto 0.1 K/mm3 (0.0-0.1); Basophils Percent Auto 0.7 % (0.2-1.2); Eosinophils Absolute Auto 0.4 K/mm3 (0-0.3); Eosinophils Percent Auto 4.5 % (0-4.4); Hematocrit 36.2 % (42.0-52.0); Hemoglobin 12.3 g/dL (14.0-18.0); Immature Granulocyte Absolute 0.07 K/mm3 (0.00-0.031); Immature Granulocyte Percent A 0.8 % (0-0.5); Lymphocytes Absolute Auto 3.31 K/mm3 (0.9-3.2); Mean Corpuscular Hemoglobin 27.9 pg (26-34); Mean Corpuscular Volume 82.1 fl (80-100); Mean Platelet Volume 9.3 fl (7.4-10.4); Monocytes Absolute Auto 0.8 K/mm3 (0.1-0.6); Monocytes Percent Auto 8.7 % (2.6-8.5); Neutrophils Absolute Auto 4.3 K/mm3 (1.3-6.7); Neutrophils Percent Auto 48.3 % (45.5-73.1); Platelet Count Result 213 k/mm3 (150-375); Red Blood Count 4.41 M/mm3 (4.6-6.20); Red Cell Distribution Width 13.1 % (11.5-14.5)
[2024-05-09 23:12] LABS: Alanine Aminotransferase 20 U/L (6-50); Albumin Level 4.3 g/dL (3.5-5.1); Alkaline Phosphatase 60 U/L (38-126); Anion Gap 6 mmol/L (4-12); Aspartate Amino Transferase 20 U/L (17-59); Blood Urea Nitrogen 12 mg/dL (9-20); Carbon Dioxide 28 mmol/L (22-30); Chloride 107 mmol/L (98-107); Estimated CRCL calculation 152 ml/min; Estimated Glomerular Filt Rate > 60; Glucose 103 mg/dL (65-110); Potassium 3.6 mmol/L (3.4-5.0); Sodium 141 mmol/L (137-145)
[2024-05-09 23:24] LABS: NT Pro B Type Natriuretic Pept < 20 pg/mL (19.9-100); Troponin I < 0.012 ng/mL (0.000-0.034)
--- NOTE | 2024-05-09 23:54 | ED.GENADULT ---
HPI - General Adult General Chief complaint: Unspecified Stated complaint: Lower extremity edema Time Seen by Provider: 05/09/24 22:06 History of Present Illness HPI narrative: This is a 48-year-old male presenting ED with chief complaint of lower extremity edema. 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 About 95? outside yesterday. He noticed symmetric swelling of his legs at the end of the day. They improved overnight but he still had some mild swelling this morning. Patient is not having any chest pain difficulty breathing, history of heart failure risk factors for blood clots. patient states he was nervous about leg swelling his he was also having neck pain, and a brief episode of sharp epigastric pain yesterday and wanted make sure that everything was not related. Related Data Home Medications Medication Instructions Recorded Confirmed baclofen 10 mg tablet 10 mg PO QID 09/23/19 blood sugar diagnostic #10 ea 09/23/19 blood sugar [facility]/19 Ultra Blue Test Strip) lancets 33 gauge (DragonWaveTouch Delica #100 ea 09/23/19 Lancets) metformin 1,000 mg tablet 1,000 mg PO DAILY 09/23/19 nitroglycerin 0.4 mg sublingual 0.4 mg sublingual Q5M PRN Pain 09/23/19 tablet allopurinol 300 mg tablet 300 mg PO DAILY 12/08/19 amlodipine 10 mg tablet 10 mg PO DAILY 12/08/19 chlorthalidone 50 mg tablet 50 mg PO DAILY 12/08/19 methylphenidate HCl 20 mg tablet 20 mg PO BID 12/08/19 sitagliptin phosphate 100 mg 100 mg PO DAILY 12/08/19 tablet (Januvia) albuterol sulfate 90 mcg/actuation inhalation 12/21/19 aerosol inhaler Allergies Allergy/AdvReac Type Severity Reaction Status Date / Time Penicillins Allergy Severe Anaphylactic Verified 05/05/24 01:37 Shock lisinopril Allergy Unknown Cough Verified 05/05/24 01:37 [facility] Past Medical History Medical History Carpal tunnel syndrome Diabetes mellitus Essential hypertension Gastric reflux Hyperglycinemia Obesity Osteoarthritis of both knees Sleep apnea Surgical History Surgical History No pertinent past surgical history Family History Family History Mother Diabetes mellitus Hypertension Father Hypertension Family history of cardiovascular disease Social History Social History Smoking status: Current every day smoker Alcohol intake: current Gender identity (if verbalized by the patient): Male Exam Narrative: APPEARANCE: No apparent distress. Head: atraumatic. EYES: EOMI, NOSE: Atraumatic NECK: Trachea midline RESPIRATORY: No increased rate of breathing Clear to auscultation CARDIOVASCULAR: RRR, +2 pitting edema to the ankle ABDOMINAL: Non-distended soft nontender MUSCULOSKELETAl: No obvious deformities NEURO: Alert. Moving 4/4 extremities SKIN:: Warm, dry. Normal color PSYCHIATRIC: Normal affect Course Vital Signs Vital signs: Vital Signs Temperature 97.8 F 05/09/24 21:39 Pulse Rate 85 05/09/24 21:39 Respiratory Rate 16 05/09/24 21:39 Blood Pressure 135/83 05/09/24 21:39 Pulse Oximetry 100 05/09/24 21:39 Oxygen Delivery Room Air 05/09/24 21:39 Temperature 97.8 F 05/09/24 21:39 Pulse Rate 79 05/09/24 22:06 Respiratory Rate 16 05/09/24 21:39 Blood Pressure 135/83 05/09/24 21:39 Pulse Oximetry 100 05/09/24 22:05 Oxygen Delivery Room Air 05/09/24 22:05 Medical Decision Making [facility] Narrative Medical decision making narrative: -Course: 48-year-old presenting with bilateral lower extremity edema after being out in the heat. Chest x-ray without cardiomegaly or pulmonary edema. swelling is symmetric and he has no risk factors for DVT. DVT very unlikely. Laboratory studies unremarkable, EKG and ch
[2024-05-10 00:12] VITALS: BP 145/81; PULSE 81; RESP 23; O2SAT 97
== END 2024-05-10 00:13 | disposition home or self-care (01) ==
PROVIDERS: Emergency Provider Emergency Medicine
DX: T67.7XXA Heat edema, initial encounter (principal); I10 Essential (primary) hypertension; E11.9 Type 2 diabetes mellitus without complications; E66.9 Obesity, unspecified; Z68.42 Body mass index [BMI] 45.0-49.9, adult; K21.9 Gastro-esophageal reflux disease without esophagitis; G47.30 Sleep apnea, unspecified; M17.0 Bilateral primary osteoarthritis of knee; F17.200 Nicotine dependence, unspecified, uncomplicated; Z79.899 Other long term (current) drug therapy; Z79.84 Long term (current) use of oral hypoglycemic drugs; X30.XXXA Exposure to excessive natural heat, initial encounter
CPT/HCPCS: 36415; 71045; 80053; 83880; 84484; 85025; 93005; 99284

== ENCOUNTER 2024-05-28 22:35 | Emergency (ER) | payer OTHER, SELFPAY ==
--- NOTE | ~2024-05-28 | CT_ITS ---
EXAMINATION: CT abdomen pelvis wo con DATE: 05/29/2024 03:01 INDICATION: Flank pain and hematuria TECHNIQUE: Computed tomography (CT) of the abdomen and pelvis was performed without intravenous contr ast. Automated exposure control and iterative reconstruction technique were employed. The dose-length product was 1460.07 mGy-cm. COMPARISON: None FINDINGS: Small calcified nodule and mild atelectasis at the left lung base. Heart size is normal. No pericardi al or pleural effusion. Postoperative change of prior sleeve gastrectomy. Cholecystectomy clips in th e bladder fossa. Liver, spleen, pancreas and bilateral adrenal glands are normal. Kidneys appear norm al with no hydronephrosis or evident nephrolithiasis. Subtle tiny density potentially a nonobstructin g 1 mm history or smaller stone at the right ureteropelvic junction. A few phleboliths and atheroscle rotic calcifications in the pelvis. No other suspected urolithiasis. Bladder is normal. Bowels includ ing the appendix are normal. Mild lumbar spondylosis. IMPRESSION: 1. Possible 1 mm or smaller stone at the right ureteropelvic junction. No other evident acute cardiop ulmonary disease. Reviewed, dictated and finalized at location A. IMPRESSION: 1. Possible 1 mm or smaller stone at the right ureteropelvic junction. No other evident acute cardiopulmonary disease.
--- NOTE | ~2024-05-28 | XR_ITS ---
EXAMINATION: XR chest 2V DATE: 05/28/2024 23:48 INDICATION: Shortness of breath. Chest pain. TECHNIQUE: Frontal and lateral views of the chest were obtained. COMPARISON: Chest single view 05/09/2024 FINDINGS: There is no pneumonia, pleural effusion, or pneumothorax. The heart size is normal. IMPRESSION: 1. No acute cardiopulmonary disease. Reviewed, dictated and finalized at location E.
[2024-05-28 22:52] VITALS: BP 144/88; PULSE 87; RESP 18; TEMP 36.3; O2SAT 100
--- NOTE | 2024-05-28 22:56 | ECG_ITS ---
Test Date: 2024-05-28 23:13:33 Measurements Intervals [place] Rate: 87 P: 59 AR: 132 QRS: 33 QRSD: 94 T: 28 QT: 355 QTc: 428 Interpretive Statements SINUS RHYTHM NORMAL ECG Compared to ECG 05/09/2024 21:37:05 No significant changes Electronically Signed On 05-29-2024 07:12:15 CDT by Blayne Chance D.O.
--- NOTE | 2024-05-29 00:53 | ED.GENADULT ---
HPI - General Adult General Chief complaint: Shortness of Breath/Dyspnea Stated complaint: sob Time Seen by Provider: 05/29/24 00:19 History of Present Illness HPI narrative: 48-year-old male presents to the emergency department for evaluation for left-sided chest wall/flank pain. 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 Patient denies any falls or injuries. Patient does have a history of gastric sleeve did feel he was gaining weight again some patients which to go the liquid diet again today. Patient states he does have intermittent chest pain that he describes as sharp and short lasting. Patient states this can happen with movement but does not often happen with exertion. Related Data Home Medications Medication Instructions Recorded Confirmed baclofen 10 mg tablet 10 mg PO QID 09/23/19 blood sugar diagnostic #10 ea 09/23/19 blood sugar diagnostic (OneTouch #10 ea 09/23/19 Ultra Blue Test Strip) lancets 33 gauge ([employer] Delica #100 ea 09/23/19 Lancets) metformin 1,000 mg tablet 1,000 mg PO DAILY 09/23/19 nitroglycerin 0.4 mg sublingual 0.4 mg sublingual Q5M PRN Pain 09/23/19 tablet allopurinol 300 mg tablet 300 mg PO DAILY 12/08/19 amlodipine 10 mg tablet 10 mg PO DAILY 12/08/19 chlorthalidone 50 mg tablet 50 mg PO DAILY 12/08/19 methylphenidate HCl 20 mg tablet 20 mg PO BID 12/08/19 sitagliptin phosphate 100 mg 100 mg PO DAILY 12/08/19 tablet (Januvia) albuterol sulfate 90 mcg/actuation inhalation 12/21/19 aerosol inhaler Allergies Allergy/AdvReac Type Severity Reaction Status Date / Time Penicillins Allergy Severe Anaphylactic Verified 05/28/24 22:56 Shock lisinopril Allergy Unknown Cough Verified 05/28/24 22:56 Review of Systems Review of Systems: All systems reviewed & are unremarkable except as noted in HPI and below PMFSH Past Medical History Medical History Carpal tunnel syndrome Diabetes mellitus Essential hypertension Gastric reflux Hyperglycinemia Obesity Osteoarthritis of both knees Sleep apnea Surgical History Surgical History No pertinent past surgical history Family History Family History Mother Diabetes mellitus Hypertension Father Hypertension Family history of cardiovascular disease Social History Social History Smoking status: Current every day smoker Alcohol intake: current Gender identity (if verbalized by the patient): Male Exam Narrative: APPEARANCE: Well appearing, no pain, no distress, well-nourished. HEAD: normocephalic, atraumatic. EYES: PERRLA/EOMI, conjunctivae clear. NOSE: Normal no drainage EARS:TMS clear with good light reflex. THROAT: Pharynx clear, no exudate. NECK: Supple. No adenopathy, no masses. RESPIRATORY: Airway patent, respirations nonlabored. Clear to auscultation bilaterally, no rales, rhonchi, wheezing. CARDIOVASCULAR: Regular rate and rhythm without murmurs rubs or gallops. ABDOMINAL: Soft, nontender, nondistended, normal bowel sounds MUSCULOSKELETAL: Left CVA tenderness to palpation NEURO: Alert. Cranial nerves II through XII intact. Grossly intact SKIN: Warm, dry. Normal Color Course Course Emergency Course: patient did feel improved with treatment. Patient was updated results of his workup. Patient was discharged home Vital Signs Vital signs: Vital Signs Temperature 97.4 F L 05/28/24 22:52 Pulse Rate 87 05/28/24 22:52 Respiratory Rate 05/28/24 22:52 Blood Pressure 144/88 H 05/28/24 22:52 Pulse Oximetry 100 05/28/24 22:52 Oxygen Delivery Room Air 05/28/24 22:52 Temperature 97.4 F L 05/28/24 22:52 Pulse Rate 92 05/29/24 06:52 Respiratory Rate 18 05/29/24 06:52 Blood Pressure 142/86 H 05/29/24 06:52 Puls
[2024-05-29 01:14] LABS: Basophils Percent Auto 0.3 % (0.2-1.2); Eosinophils Absolute Auto 0.3 K/mm3 (0-0.3); Eosinophils Percent Auto 3.4 % (0-4.4); Hematocrit 37.4 % (42.0-52.0); Hemoglobin 12.5 g/dL (14.0-18.0); Immature Granulocyte Absolute 0.02 K/mm3 (0.00-0.031); Immature Granulocyte Percent A 0.2 % (0-0.5); Lymphocytes Absolute Auto 2.47 K/mm3 (0.9-3.2); Lymphocytes Percent Auto 27.5 % (18.3-44.2); Mean Corpuscular HGB Conc 33.4 g/dl (32-36); Mean Corpuscular Hemoglobin 27.6 pg (26-34); Mean Corpuscular Volume 82.6 fl (80-100); Mean Platelet Volume 9.3 fl (7.4-10.4); Monocytes Absolute Auto 0.8 K/mm3 (0.1-0.6); Monocytes Percent Auto 8.3 % (2.6-8.5); Neutrophils Absolute Auto 5.4 K/mm3 (1.3-6.7); Neutrophils Percent Auto 60.3 % (45.5-73.1); Platelet Count Result 204 k/mm3 (150-375); Red Blood Count 4.53 M/mm3 (4.6-6.20)
[2024-05-29 01:24] LABS: Alanine Aminotransferase 20 U/L (6-50); Albumin Level 4.2 g/dL (3.5-5.1); Alkaline Phosphatase 67 U/L (38-126); Anion Gap 13 mmol/L (4-12); Aspartate Amino Transferase 19 U/L (17-59); Bilirubin,Total 1.3 mg/dL (0.2-1.3); Blood Urea Nitrogen 13 mg/dL (9-20); Calcium 9.3 mg/dL (8.4-10.2); Carbon Dioxide 26 mmol/L (22-30); Chloride 101 mmol/L (98-107); Estimated CRCL calculation 128 ml/min; Estimated Glomerular Filt Rate > 60; Glucose 110 mg/dL (65-110); Potassium 3.4 mmol/L (3.4-5.0); Sodium 140 mmol/L (137-145)
[2024-05-29 01:32] LABS: Appearance Urine Clear (Clear); Bacteria Urine None Seen /hpf; Bilirubin Urine Negative (Negative); Blood Urine 1+ (Negative); Color Urine Yellow (Yellow); Glucose Urine UA Negative (Negative); Ketones Urine Negative (Negative); Leukocyte Esterase Ur Negative LEU/UL (Negative); Nitrate Urine Negative (Negative); Non Pathogenic Casts 0-2; Protein Urine Negative (Negative); RBC Urine 0-2 /hpf (0-2); Specific Grav Ur 1.015 (1.001-1.035); Squamous Epithelial Cell Urine None Seen /hpf (Few); WBC Urine 0-5 /hpf (0-3); pH Urine 5.5 (5.0-9.0)
[2024-05-29 01:33] LABS: Add Urine Microscopic? YES
[2024-05-29 01:33] LABS: D Dimer 0.32 ug/mL (<0.48)
[2024-05-29 02:29] LABS: Troponin I < 0.012 ng/mL (0.000-0.034)
[2024-05-29 04:26] VITALS: O2SAT 100
[2024-05-29 04:27] VITALS: BP 113/71; PULSE 98; RESP 14; O2SAT 99
[2024-05-29 06:52] VITALS: BP 142/86; PULSE 92; RESP 18; O2SAT 100
== END 2024-05-29 07:02 | disposition home or self-care (01) ==
PROVIDERS: Emergency Provider Emergency Medicine
DX: N20.0 Calculus of kidney (principal); I10 Essential (primary) hypertension; E11.9 Type 2 diabetes mellitus without complications; E66.9 Obesity, unspecified; Z68.39 Body mass index [BMI] 39.0-39.9, adult; K21.9 Gastro-esophageal reflux disease without esophagitis; M17.0 Bilateral primary osteoarthritis of knee; G47.30 Sleep apnea, unspecified; F17.200 Nicotine dependence, unspecified, uncomplicated; Z79.84 Long term (current) use of oral hypoglycemic drugs; Z79.899 Other long term (current) drug therapy
CPT/HCPCS: 36415; 71046; 74176; 80053; 81001; 84484; 85025; 85380; 93005; 99284

== ENCOUNTER 2024-08-24 10:57 | Emergency (ER) | payer OTHER, SELFPAY ==
--- NOTE | ~2024-08-24 | XR_ITS ---
CHEST RADIOGRAPH, PA AND LATERAL CLINICAL HISTORY: chest pain, HTN, NUMBNESS ON FINGERS, LIGHTHEADEDNESS . COMPARISON: 05/28/2024 TECHNIQUE: PA and lateral views of the chest. FINDINGS The cardiomediastinal silhouette is unremarkable. The lungs are clear. Visualized osseous structures and soft tissues are unremarkable. IMPRESSION: No focal infiltrate or effusion. Reviewed, dictated and finalized at location A.
--- NOTE | ~2024-08-24 | CT_ITS ---
EXAMINATION: CT abdomen pelvis w con DATE: 08/24/2024 15:22 INDICATION: Upper abdominal tenderness. TECHNIQUE: Computed tomography (CT) of the abdomen and pelvis was performed with 100 mL Omnipaque 350 intravenous contrast. Automated exposure control and iterative reconstruction technique were employe d. The dose-length product was 1738.19 mGy-cm. COMPARISON: CT abdomen and pelvis 05/29/2024 FINDINGS: The visualized portions of the lung bases demonstrate mild atelectasis. No pleural effusion . The heart size is normal. No pericardial effusion. There are coronary artery calcifications. The li beck and spleen are normal. There are changes of cholecystectomy. The pancreas, adrenal glands, and le ft kidney are normal. There are cysts in right kidney measuring up to 15 mm. There are no dilated loo ps of bowel. The appendix is normal. There are changes of gastric sleeve procedure. There are no path ologically enlarged lymph nodes. There is no free intraperitoneal fluid. There is mild thoracic spond ylosis and moderate lumbar spondylosis. IMPRESSION: 1. No etiology for the patient's symptoms. Reviewed, dictated and finalized at location A.
[2024-08-24 11:01] VITALS: BP 140/83; PULSE 83; RESP 17; TEMP 36.5; O2SAT 100
--- NOTE | 2024-08-24 11:06 | ECG_ITS ---
Test Date: 2024-08-24 11:14:19 Measurements Intervals [place] Rate: 76 P: 52 NC: 156 QRS: 33 QRSD: 85 T: 41 QT: 374 QTc: 421 Interpretive Statements SINUS RHYTHM NORMAL ELECTROCARDIOGRAM Compared to ECG 05/28/2024 23:13:33 No significant changes Electronically Signed On 08-25-2024 07:02:06 CDT by Parveen Joshua M.D.
[2024-08-24 11:24] LABS: Basophils Absolute Auto 0.1 K/mm3 (0.0-0.1); Basophils Percent Auto 0.8 % (0.2-1.2); Eosinophils Absolute Auto 0.3 K/mm3 (0-0.3); Hematocrit 42.5 % (42.0-52.0); Hemoglobin 14.1 g/dL (14.0-18.0); Immature Granulocyte Absolute 0.06 K/mm3 (0.00-0.031); Immature Granulocyte Percent A 0.7 % (0-0.5); Lymphocytes Absolute Auto 2.57 K/mm3 (0.9-3.2); Lymphocytes Percent Auto 30.8 % (18.3-44.2); Mean Corpuscular HGB Conc 33.2 g/dl (32-36); Mean Corpuscular Hemoglobin 27.6 pg (26-34); Mean Corpuscular Volume 83.3 fl (80-100); Mean Platelet Volume 9.5 fl (7.4-10.4); Monocytes Absolute Auto 0.7 K/mm3 (0.1-0.6); Monocytes Percent Auto 7.8 % (2.6-8.5); Neutrophils Absolute Auto 4.7 K/mm3 (1.3-6.7); Neutrophils Percent Auto 55.9 % (45.5-73.1); Platelet Count Result 235 k/mm3 (150-375); Red Cell Distribution Width 13.2 % (11.5-14.5); White Blood Count 8.3 K/mm3 (4.5-10.0)
[2024-08-24 11:47] LABS: INR 1.1; Partial Thromboplastin Time 29.6 Seconds (22.3-36.8); Prothrombin Time 14.2 Seconds (11.1-14.7)
[2024-08-24 11:51] LABS: Alanine Aminotransferase 27 U/L (6-50); Albumin Level 4.7 g/dL (3.5-5.1); Alkaline Phosphatase 71 U/L (38-126); Anion Gap 9 mmol/L (4-12); Aspartate Amino Transferase 25 U/L (17-59); Blood Urea Nitrogen 10 mg/dL (9-20); Calcium 9.8 mg/dL (8.4-10.2); Carbon Dioxide 31 mmol/L (22-30); Chloride 101 mmol/L (98-107); Estimated CRCL calculation 132 ml/min; Estimated Glomerular Filt Rate > 60; Glucose 105 mg/dL (65-110); Lipase 169 U/L (23-300); Potassium 3.8 mmol/L (3.4-5.0); Sodium 141 mmol/L (137-145)
[2024-08-24 12:03] LABS: Troponin I < 0.012 ng/mL (0.000-0.034)
--- NOTE | 2024-08-24 12:55 | ED.CHESTPAIN ---
HPI - Chest Pain General Chief Complaint: Chest Pain <HORACIO Saldivar Last Filed: 08/24/24 13:02> Stated Complaint: cp, high bp, numb in fingers, pain to veins in leg <HORACIO Saldivar Last Filed: 08/24/24 13:02> Time Seen by Provider: 08/24/24 12:55 <HORACIO Saldivar Last Filed: 08/24/24 13:02> Focused HPI: Patient is a 49 y/o male who presents to the ED with multiple complaints. Patient reports he began feeling unwell on Friday. He reports having productive cough, raspy throat, shortness of breath - worse with exertion, chills, diarrhea, upper abd pain, intermittent pain in his L sided chest, radiating through to his back. Denies known fever. Denies current CP. States his has had COVID recently. He tested himself at home and was negative. GENERAL: Well-appearing, morbidly obese with BMI of 42.5, and in no acute distress. HEAD: Normocephalic, atraumatic. ENT: No significant posterior pharynx erythema. CHEST: Clear to auscultation. ?No respiratory distress. No significant focal lung sounds. HEART: Regular rate and rhythm.? ABD: Mild TTP in epigastric region. Normoactive BS. NEURO: ?Alert and oriented x3. Patient screened in triage and initial orders placed.? ?Additional care and disposition to be based upon?diagnostic testing and treatment. <HORACIO Saldivar Last Filed: 08/24/24 13:02> Source: patient <HORACIO Saldivar Last Filed: 08/24/24 13:02> Mode of arrival: ambulatory <HORACIO Saldivar Last Filed: 08/24/24 13:02> Limitations: no limitations <HORACIO Saldivar Last Filed: 08/24/24 13:02> History of Present Illness HPI narrative: 49-year-old male presenting with multiple complaints. States that for the last several days he has had a sore throat, intermittent cough and shortness of breath, diarrhea, upper abdominal pain. States that the upper belly pain kind of goes into his chest. States he does have a history of problems with reflux. He currently denies significant complaints other than generalized fatigue. His recently tested positive for COVID. <Karley Gibson MD - Last Filed: 08/24/24 17:22> Related Data Home Medications: Home Medications Medication Instructions Recorded Confirmed baclofen 10 mg tablet 10 mg PO QID 09/23/19 blood sugar diagnostic #10 ea 09/23/19 blood sugar diagnostic (OneTouch #10 ea 09/23/19 Ultra Blue Test Strip) lancets 33 gauge (OneTouch Delica #100 ea 09/23/19 Lancets) metformin 1,000 mg tablet 1,000 mg PO DAILY 09/23/19 nitroglycerin 0.4 mg sublingual 0.4 mg sublingual Q5M PRN Pain 09/23/19 tablet allopurinol 300 mg tablet 300 mg PO DAILY 12/08/19 amlodipine 10 mg tablet 10 mg PO DAILY 12/08/19 chlorthalidone 50 mg tablet 50 mg PO DAILY 12/08/19 methylphenidate HCl 20 mg tablet 20 mg PO BID 12/08/19 sitagliptin phosphate 100 mg 100 mg PO DAILY 12/08/19 tablet (Januvia) albuterol sulfate 90 mcg/actuation inhalation 12/21/19 aerosol inhaler <Tangela Waddell PA-C - Last Filed: 08/24/24 13:02> Allergies/Adverse Reactions: Allergies Allergy/AdvReac Type Severity Reaction Status Date / Time Penicillins Allergy Severe Anaphylactic Verified 08/24/24 10:59 Shock lisinopril Allergy Unknown Cough Verified 08/24/24 10:59 <Tangela Waddell PA-C - Last Filed: 08/24/24 13:02> Review of Systems Review of Systems: All systems reviewed & are unremarkable except as noted in HPI and below <Karley Gibson MD - Last Filed: 08/24/24 17:22> PMFSH Past Medical History Medical History: Medical History Carpal tunnel syndrome Diabetes mellitus Essential hypertension Gastric reflux Hyperglycinemia Obesity Osteoarthritis of both knees Sleep apnea <Tangela Waddell PA-C - Last Filed: 08/24/24 13:02> Surgical History Surgical
[2024-08-24] MEDS: ACETAMINOPHEN 500 MG TABLET 1000 MG PO (13:12)
[2024-08-24] MEDS: FAMOTIDINE 20 MG/2 ML VIAL IV PUSH ×2 (13:14→15:05)
[2024-08-24 13:24] LABS: D Dimer 0.35 ug/mL (<0.48)
[2024-08-24 13:28] VITALS: BP 120/82; PULSE 75; RESP 14; O2SAT 100
--- NOTE | 2024-08-24 13:54 | ECG_ITS ---
Test Date: 2024-08-24 14:09:39 Measurements Intervals [place] Rate: 72 P: 38 [place]: 154 QRS: 17 QRSD: 100 T: 27 QT: 383 QTc: 421 Interpretive Statements SINUS RHYTHM NORMAL ELECTROCARDIOGRAM Compared to ECG 08/24/2024 11:14:19 No significant changes Electronically Signed On 08-25-2024 07:07:56 CDT by Parveen Joshua M.D.
[2024-08-24 14:05] LABS: Influenza A QL RT-PCR Negative (Negative); Influenza B QL RT-PCR Negative (Negative); RSV RNA, RT-PCR Negative (Negative); SARS-CoV-2 RNA PCR Negative (Negative)
[2024-08-24 14:30] VITALS: BP 123/78; PULSE 75; RESP 18; O2SAT 98
[2024-08-24 14:40] LABS: Troponin I < 0.012 ng/mL (0.000-0.034)
[2024-08-24] MEDS: SODIUM CHLORIDE 0.9% IV 1,000 ML 999 ML IV CONT (15:04)
[2024-08-24 15:28] VITALS: BP 153/97; PULSE 81; RESP 14; O2SAT 98
[2024-08-24] MEDS: BELLADONNA ALK/PHENOB ELIX 10 ML, MAG HYDROX/ALUMINUM HYD/SIMETH 30 ML, LIDOCAINE HCL 2... PO (15:48)
[2024-08-24 16:01] VITALS: BP 153/98; PULSE 86; RESP 19; O2SAT 99
[2024-08-24 17:15] VITALS: BP 138/93; PULSE 81; RESP 16; TEMP 36.6; O2SAT 98
== END 2024-08-24 17:44 | disposition home or self-care (01) ==
PROVIDERS: Emergency Medicine; Physician Assistant; Emergency Provider Emergency Medicine
DX: R53.81 Other malaise (principal); R10.13 Epigastric pain; Z20.822 Contact with and (suspected) exposure to COVID-19; E11.9 Type 2 diabetes mellitus without complications; I10 Essential (primary) hypertension; K21.9 Gastro-esophageal reflux disease without esophagitis; E66.9 Obesity, unspecified; Z68.41 Body mass index [BMI] 40.0-44.9, adult; M17.0 Bilateral primary osteoarthritis of knee; G47.30 Sleep apnea, unspecified; Z79.84 Long term (current) use of oral hypoglycemic drugs; Z79.899 Other long term (current) drug therapy
CPT/HCPCS: 36415; 71046; 74177; 80053; 83690; 84484; 85025; 85380; 85610; 85730; 87637; 93005; 96361; 96374; 96376; 99284; A9270; J7030; Q9967

== ENCOUNTER 2024-11-05 03:42 | Emergency (ER) | payer OTHER, SELFPAY ==
--- NOTE | ~2024-11-05 | XR_ITS ---
Portable chest x-ray Comparison: 08/24/2024 Clinical History: Cough Findings: Lungs are clear, without focal consolidation or pleural effusion. Cardiomediastinal silho uette is stable. Bones and soft tissues are unremarkable. Impression: Normal chest. Reviewed, dictated and finalized at [facility]. REPAIRER Impression: Normal chest.
[2024-11-05 03:55] VITALS: BP 145/94; PULSE 87; RESP 17; TEMP 36.7; O2SAT 97
[2024-11-05 04:01] VITALS: PULSE 87
[2024-11-05 04:13] VITALS: O2SAT 98
[2024-11-05] MEDS: SODIUM CHLORIDE 0.9% IV 1,000 ML 999 ML IV CONT (04:53)
[2024-11-05 04:57] LABS: Basophils Absolute Auto 0.1 K/mm3 (0.0-0.1); Basophils Percent Auto 0.7 % (0.2-1.2); Eosinophils Absolute Auto 0.5 K/mm3 (0-0.3); Eosinophils Percent Auto 5.9 % (0-4.4); Hematocrit 39.4 % (42.0-52.0); Hemoglobin 13.2 g/dL (14.0-18.0); Immature Granulocyte Absolute 0.08 K/mm3 (0.00-0.031); Immature Granulocyte Percent A 0.9 % (0-0.5); Lymphocytes Absolute Auto 3.38 K/mm3 (0.9-3.2); Lymphocytes Percent Auto 36.8 % (18.3-44.2); Mean Corpuscular HGB Conc 33.5 g/dl (32-36); Mean Corpuscular Hemoglobin 27.7 pg (26-34); Mean Corpuscular Volume 82.8 fl (80-100); Mean Platelet Volume 9.4 fl (7.4-10.4); Monocytes Absolute Auto 1.1 K/mm3 (0.1-0.6); Monocytes Percent Auto 11.8 % (2.6-8.5); Neutrophils Absolute Auto 4.1 K/mm3 (1.3-6.7); Neutrophils Percent Auto 43.9 % (45.5-73.1); Platelet Count Result 219 k/mm3 (150-375); Red Blood Count 4.76 M/mm3 (4.6-6.20); Red Cell Distribution Width 13.2 % (11.5-14.5); White Blood Count 9.2 K/mm3 (4.5-10.0)
[2024-11-05 05:08] LABS: Alanine Aminotransferase 20 U/L (6-50); Albumin Level 3.9 g/dL (3.5-5.1); Alkaline Phosphatase 60 U/L (38-126); Anion Gap 3 mmol/L (4-12); Aspartate Amino Transferase 21 U/L (17-59); Bilirubin,Total 0.9 mg/dL (0.2-1.3); Blood Urea Nitrogen 8 mg/dL (9-20); Calcium 8.8 mg/dL (8.4-10.2); Carbon Dioxide 30 mmol/L (22-30); Chloride 106 mmol/L (98-107); Estimated CRCL calculation 127 ml/min; Estimated Glomerular Filt Rate > 60; Glucose 96 mg/dL (65-110); Potassium 3.5 mmol/L (3.4-5.0); Sodium 139 mmol/L (137-145)
[2024-11-05 05:33] LABS: Influenza A QL RT-PCR Negative (Negative); Influenza B QL RT-PCR Negative (Negative); RSV RNA, RT-PCR Negative (Negative); SARS-CoV-2 RNA PCR Positive (Negative)
[2024-11-05 06:07] VITALS: BP 140/90; PULSE 84; RESP 17; O2SAT 98
--- NOTE | 2024-11-05 06:22 | ED.GENADULT ---
HPI - General Adult General Chief complaint: Upper Respiratory Infection Stated complaint: Cough, diarrhea Time Seen by Provider: 11/05/24 04:02 History of Present Illness HPI narrative: This is a 41-year-old male presenting with 3 days of flu-like symptoms. Symptoms include cough, burning in his chest, diarrhea and stomach cramps. No fevers chills shortness of breath or urinary symptoms. Related Data Home Medications ?Medication ?Instructions ?Recorded ?Confirmed ?Last Taken ?Type baclofen 10 mg tablet 10 mg PO QID 09/23/19 Unknown History blood sugar diagnostic #10 ea 09/23/19 Unknown History blood sugar diagnostic (OneTouch #10 ea 09/23/19 Unknown History Ultra Blue Test Strip) lancets 33 gauge (OneTouch Delica #100 ea 09/23/19 Unknown History Lancets) metformin 1,000 mg tablet 1,000 mg PO DAILY 09/23/19 Unknown History nitroglycerin 0.4 mg sublingual 0.4 mg sublingual Q5M PRN Pain 09/23/19 Unknown History tablet allopurinol 300 mg tablet 300 mg PO DAILY 12/08/19 Unknown History amlodipine 10 mg tablet 10 mg PO DAILY 12/08/19 Unknown History chlorthalidone 50 mg tablet 50 mg PO DAILY 12/08/19 Unknown History methylphenidate HCl 20 mg tablet 20 mg PO BID 12/08/19 Unknown History sitagliptin phosphate 100 mg 100 mg PO DAILY 12/08/19 Unknown History tablet (Januvia) albuterol sulfate 90 mcg/actuation inhalation 12/21/19 Unknown History aerosol inhaler Allergies Allergy/AdvReac Type Severity Reaction Status Date / Time Penicillins Allergy Severe Anaphylactic Verified 11/05/24 03:44 Shock lisinopril Allergy Unknown Cough Verified 11/05/24 03:44 [facility] [place] Past Medical History Medical History Osteoarthritis of both knees Sleep apnea Gastric reflux Essential hypertension Carpal tunnel syndrome Obesity Hyperglycinemia Diabetes mellitus Surgical History Surgical History No pertinent past surgical history Family History Family History Mother Diabetes mellitus Hypertension Father Hypertension Family history of cardiovascular disease Social History Social History Smoking status: Current every day smoker Alcohol intake: current Gender identity (if verbalized by the patient): Male Exam Narrative: APPEARANCE: No apparent distress. Head: atraumatic. EYES: EOMI, NOSE: Atraumatic NECK: Trachea midline RESPIRATORY: No increased rate of breathing Clear to auscultation CARDIOVASCULAR: RRR, ABDOMINAL: Non-distended MUSCULOSKELETAl: No obvious deformities NEURO: Alert. Moving 4/4 extremities SKIN:: Warm, dry. Normal color PSYCHIATRIC: Normal affect Course Vital Signs Vital signs: Vital Signs Temperature 98.1 F 11/05/24 03:55 Pulse Rate 87 11/05/24 03:55 Respiratory Rate 17 11/05/24 03:55 Blood Pressure 145/94 H 11/05/24 03:55 Pulse Oximetry 97 11/05/24 03:55 Oxygen Delivery Room Air 11/05/24 03:55 Temperature 98.1 F 11/05/24 03:55 Pulse Rate 84 11/05/24 06:07 Respiratory Rate 17 11/05/24 06:07 Blood Pressure 140/90 11/05/24 06:07 Pulse Oximetry 98 11/05/24 06:07 Oxygen Delivery Room Air 11/05/24 04:13 Medical Decision Making MDM Narrative Medical decision making narrative: -Course: 41-year-old male presenting with URI symptoms. Positive for COVID. Vital signs are stable and he is well appearing overall. No oxygen requirements. patient discharged with return precautions. -DDX includes but is not limited to: Viral syndrome, pneumonia Vital Signs Vital Signs: Vital Signs Temperature 98.1 F 11/05/24 03:55 Pulse Rate 87 11/05/24 03:55 Respiratory Rate 17 11/05/24 03:55 Blood Pressure 145/94 H 11/05/24 03:55 Pulse Oximetry 97 11/05/24 03:55 Oxygen Delivery Room Air 11/05/24 03:55 Temperature 98.1 F 11/05/24 03:55 Pulse Rate 84 11/05/24 06:07 Respiratory Rate 17 11/05/24 06:07 Blood Pressure 140/90 11/05/24 06:07 Pulse Oximetry 98 11/05/24 06:07 Oxygen Delivery Room Air 11/05/24 04:13 Lab Data 11/05/24 04:48 11/05/24 04:48 Labs: Lab Results 11/05/24 Range/Units 04:48 WBC 9.2 (4.5-10.0) K/mm3 RBC 4.76 (4.6-6.20) M/mm3 Hgb 13.2 L (14.0-18.0) g/dL Hct 39.4 L (42.0-52.0) % MCV 82.8 (80-100) fl MCH 27.7 (26-34) pg MCHC 33.5 (32-36) g/dl RDW 13.2 (11.5-14.5) % Plt Count 219 (150-375) k/mm3 MPV 9.4 (7.4-10.4) fl Immature Gran % (Auto) 0.9 H (0-0.5) % Neut % (Auto) 43.9 L (45.5-73.1) % Lymph % (Auto) 36.8 (18.3-44.2) % [place] % (Auto) 11.8 H (2.6-8.5) % Eos % (Auto) 5.9 H (0-4.4) % Baso % (Auto) 0.7 (0.2-1.2) % Lymph # (Auto) 3.38 H (0.9-3.2) K/mm3 [place] # (Auto) 1.1 H (0.1-0.6) K/mm3 Eos # (Auto) 0.5 H (0-0.3) K/mm3 Baso # (Auto) 0.1 (0.0-0.1) K/mm3 Abs Immat Gran (auto) 0.08 H (0.00-0.031) K/mm3 Absolute Neuts (auto) 4.1 (1.3-6.7) K/mm3 Absolute Nucleated RBC 0.000 (0.0-0.012) K/mm3 Nucleated RBC % 0.0 (0.0-0.2) % Sodium 139 (137-145) mmol/L Potassium 3.5 (3.4-5.0) mmol/L Chloride 106 (98-107) mmol/L Carbon Dioxide 30 (22-30) mmol/L Anion Gap 3 L (4-12) mmol/L BUN 8 L (9-20) mg/dL Creatinine 0.80 (0.7-1.3) mg/dL Estim Creat Clear Calc 127 ml/min Estimated GFR > 60 (59 - ) Glucose 96 (65-110) mg/dL Calcium 8.8 (8.4-10.2) mg/dL Total Bilirubin 0.9 (0.2-1.3) mg/dL AST 21 (17-59) U/L ALT 20 (6-50) U/L Alkaline Phosphatase 60 (38-126) U/L Total Protein 7.0 (6.3-8.2) g/dL Albumin 3.9 (3.5-5.1) g/dL Influenza A (RT-PCR) Negative (Negative) Influenza B (RT-PCR) Negative (Negative) RSV (RT-PCR) Negative (Negative) SARS-CoV-2 RNA (RT-PCR) Positive A (Negative) Discharge Plan Discharge Clinical Impression: COVID Patient Disposition: Home, Self-Care Condition: Stable Instructions: Antibiotic Form, COVID-19 (Coronavirus Disease 2019) (ED) Additional Instructions: you have COVID. Please use Motrin and Tylenol for body aches and fevers. Please return to ED if you develop shortness of breath or your condition is worsening. Patient Language: Pashto Prescriptions: No Action albuterol sulfate 90 mcg/actuation HFA aerosol inhaler INHALATION methocarbamol 750 mg tablet 750 mg PO QID PRN (Reason: muscle spasm) 7 Days Qty: 28 0RF ketorolac 10 mg tablet 10 mg PO Q6H PRN (Reason: pain) 5 Days Qty: 20 0RF tramadol 50 mg tablet 50 mg PO Q6H PRN (Reason: pain) Qty: 8 0RF baclofen 10 mg tablet 10 mg PO QID metformin 1,000 mg tablet 1,000 mg PO DAILY nitroglycerin 0.4 mg tablet, sublingual 0.4 mg SUBLINGUAL Q5M PRN (Reason: Pain) (DME) blood sugar diagnostic Strip See Rx Instructions .ROUTE .MEDSUPPLY Qty: 10 Rx Instructions: As directed (DME) lancets [OneTouch Delica Lancets] 33 gauge misc See Rx Instructions .ROUTE .MEDSUPPLY Qty: 100 Rx Instructions: As directed (DME) OneTouch Ultra Blue Test Strip Strip See Rx Instructions .ROUTE .MEDSUPPLY Qty: 10 Rx Instructions: As directed cyclobenzaprine 10 mg tablet 10 mg PO TID PRN (Reason: muscle spasm) Qty: 30 0RF tamsulosin [Flomax] 0.4 mg capsule 0.4 mg PO DAILY Qty: 14 0RF hydrocodone-acetaminophen 5-325 mg tablet 1 tablet PO Q12H PRN (Reason: pain) Qty: 10 0RF cyclobenzaprine 10 mg tablet 10 mg PO BID PRN (Reason: muscle spasm) Qty: 14 0RF famotidine [Pepcid] 20 mg tablet 20 mg PO DAILY Qty: 20 0RF methylphenidate HCl 20 mg Tablet 20 mg PO BID chlorthalidone 50 mg Tablet 50 mg PO DAILY amlodipine 10 mg Tablet 10 mg PO DAILY allopurinol 300 mg Tablet 300 mg PO DAILY Januvia 100 mg Tablet 100 mg PO DAILY methocarbamol [Robaxin-750] 750 mg tablet 750 mg PO Q4H Qty: 30 0RF naproxen 500 mg tablet 500 mg PO BID Qty: 30 0RF cyclobenzaprine 10 mg tablet 10 mg PO TID PRN (Reason: muscle spasm) Qty: 21 0RF diclofenac potassium 50 mg tablet 50 mg PO TID PRN (Reason: pain) Qty: 30 0RF Follow-up/Referrals: UNKNOWN,DOCTOR [Primary Care Provider] -
== END 2024-11-05 06:33 | disposition home or self-care (01) ==
PROVIDERS: Emergency Provider Emergency Medicine
DX: U07.1 COVID-19 (principal); I10 Essential (primary) hypertension; E11.9 Type 2 diabetes mellitus without complications; E66.9 Obesity, unspecified; Z68.39 Body mass index [BMI] 39.0-39.9, adult; M17.0 Bilateral primary osteoarthritis of knee; K21.9 Gastro-esophageal reflux disease without esophagitis; G47.30 Sleep apnea, unspecified; F17.200 Nicotine dependence, unspecified, uncomplicated; Z79.84 Long term (current) use of oral hypoglycemic drugs; Z79.899 Other long term (current) drug therapy
CPT/HCPCS: 36415; 71045; 80053; 85025; 87637; 96361; 96374; 99284; J7030

== ENCOUNTER 2024-11-15 19:11 | Emergency (ER) | payer OTHER, SELFPAY ==
--- NOTE | ~2024-11-15 | XR_ITS ---
XR chest 2V Ordering provider: Shantelle Sharp PA-C History: 49 years Male with . sob . Comparison: November 05, 2024 FINDINGS: MEDIASTINUM: The cardiac silhouette is not enlarged. LUNGS: No infiltrates, effusions or pneumothorax. OTHER: No free air under the diaphragm. Degenerative changes of the spine. IMPRESSION: No acute cardiopulmonary pathology. Reviewed, dictated and finalized at location A. Y ALL DRIVER
[2024-11-15 19:30] VITALS: BP 148/84; PULSE 113; RESP 15; TEMP 36.6; O2SAT 100
--- NOTE | 2024-11-15 19:32 | ECG_ITS ---
Test Date: 2024-11-15 19:37:34 Measurements Intervals [place] Rate: 115 P: 64 [place]: 150 QRS: 45 QRSD: 90 T: 31 QT: 329 QTc: 456 Interpretive Statements SINUS TACHYCARDIA ABNORMAL RHYTHM ECG Compared to ECG 08/24/2024 14:09:39 Sinus rhythm no longer present Electronically Signed On 11-16-2024 22:54:16 DISTRIBUTION COORDINATOR by Ramon Ferris M.D.
[2024-11-15 20:21] LABS: Influenza A QL RT-PCR Positive (Negative); Influenza B QL RT-PCR Negative (Negative); RSV RNA, RT-PCR Negative (Negative); SARS-CoV-2 RNA PCR Negative (Negative)
--- NOTE | 2024-11-15 22:59 | ED.SOB ---
HPI - SOB/Dyspnea General Chief Complaint: Shortness of Breath/Dyspnea Stated Complaint: sob, cough, diarrhea Time Seen by Provider: 11/15/24 22:51 Source: patient Mode of arrival: ambulatory Limitations: no limitations History of Present Illness HPI Narrative: This is a 49 old male that presents to the emergency department for cold symptoms. Reports he was recently diagnosed with COVID. He thought he was getting better, but then worsened again over the last couple of days. Reports cough, congestion, shortness of breath. Also reports rhinorrhea and diarrhea. Denies fevers. Related Data Home Medications ?Medication ?Instructions ?Recorded ?Confirmed ?Last Taken ?Type baclofen 10 mg tablet 10 mg PO QID 09/23/19 Unknown History blood sugar diagnostic #10 ea 09/23/19 Unknown History blood sugar diagnostic (OneTouch #10 ea 09/23/19 Unknown History Ultra Blue Test Strip) lancets 33 gauge (OneTouch Delica #100 ea 09/23/19 Unknown History Lancets) metformin 1,000 mg tablet 1,000 mg PO DAILY 09/23/19 Unknown History nitroglycerin 0.4 mg sublingual 0.4 mg sublingual Q5M PRN Pain 09/23/19 Unknown History tablet allopurinol 300 mg tablet 300 mg PO DAILY 12/08/19 Unknown History amlodipine 10 mg tablet 10 mg PO DAILY 12/08/19 Unknown History chlorthalidone 50 mg tablet 50 mg PO DAILY 12/08/19 Unknown History methylphenidate HCl 20 mg tablet 20 mg PO BID 12/08/19 Unknown History sitagliptin phosphate 100 mg 100 mg PO DAILY 12/08/19 Unknown History tablet (Januvia) albuterol sulfate 90 mcg/actuation inhalation 12/21/19 Unknown History aerosol inhaler Allergies Allergy/AdvReac Type Severity Reaction Status Date / Time Penicillins Allergy Severe Anaphylactic Verified 11/15/24 19:19 Shock lisinopril Allergy Unknown Cough Verified 11/15/24 19:19 NSAIDS (Non-Steroidal AdvReac Other Verified 11/15/24 19:19 Anti-Inflamma Review of Systems Review of Systems: CONSTITUTIONAL: Denies fever ENT: Reports rhinorrhea, congestion CARDIOVASCULAR: Denies chest pain RESPIRATORY: Reports cough and dyspnea. All systems reviewed & are unremarkable except as noted in HPI and below PMFSH Past Medical History Medical History Osteoarthritis of both knees Sleep apnea Gastric reflux Essential hypertension Carpal tunnel syndrome Obesity Hyperglycinemia Diabetes mellitus Surgical History Surgical History No pertinent past surgical history Family History Family History Mother Diabetes mellitus Hypertension Father Hypertension Family history of cardiovascular disease Social History Social History Smoking status: Current every day smoker Alcohol intake: current Gender identity (if verbalized by the patient): Male Exam Narrative: GENERAL: Well-appearing, well-nourished, and in no acute distress. HEAD: Normocephalic, atraumatic. EYES: EOMI. ENT: Nares clear, no rhinorrhea or epistaxis. Mucous membranes moist. Oropharynx without tonsillar hypertrophy exudate or other lesions. NECK: Supple. No adenopathy or masses. CHEST: Clear to auscultation. No respiratory distress. No wheezes rales or rhonchi HEART: Regular rate and rhythm. No murmur heard. Normal peripheral pulses. EXTREMITIES: Normal range of motion. No edema. SKIN: Warm, dry, no rash. NEURO: No focal deficits. Alert and oriented x3. PSYCH: Normal mood and affect Course Course Emergency Course: patient updated on workup and agrees with plan of care Vital Signs Vital signs: Vital Signs Temperature 97.9 F 11/15/24 19:30 Pulse Rate 113 H 11/15/24 19:30 Respiratory Rate 15 11/15/24 19:30 Blood Pressure 148/84 H 11/15/24 19:30 Pulse Oximetry 100 11/15/24 19:30 Temperature 97.9 F 11/15/24 19:30 Pulse Rate 113 H 11/15/24 19:30 Respiratory Rate 15 11/15/24 19:30 Blood Pressure 148/84 H 11/15/24 19:30 Pulse Oximetry 100 11/15/24 19:30 MDM - SOB/Dyspnea MDM Narrative Medical decision making narrative: Patient presents the emergency department for cold symptoms. Influenza A positive. Chest x-ray is clear. Oxygen saturation normal on room air. Will be started on Tamiflu. He is to follow up primary provider. He was given warnings to return to the ER Differential Diagnosis Differential diagnosis: Likely community acquired pneumonia and other (Influenza, COVID) Lab Data Attestation: I reviewed the patient's lab results. Labs: Lab Results 11/15/24 Range/Units 19:35 Influenza A (RT-PCR) Positive A (Negative) Influenza B (RT-PCR) Negative (Negative) RSV (RT-PCR) Negative (Negative) SARS-CoV-2 RNA (RT-PCR) Negative (Negative) Imaging Data Radiologist's impression: ITS Impressions Chest X-Ray 11/15/24 23:18 IMPRESSION: No acute cardiopulmonary pathology. ECG Data EKG #1: ECG completion date: 11/15/24 EKG Interpretation: tachycardia, sinus rhythm, no ST changes and normal QT Critical Care Time Critical Care Time Critical Care Time: No Discharge Plan Discharge Clinical Impression: Influenza A Patient Disposition: Home, Self-Care Condition: Stable Instructions: Influenza (ED) Additional Instructions: Return to the emergency department for worsening symptoms, or any other concerns Remain well-hydrated, get plenty of rest. Take Tylenol [id number] for pain as needed. Flonase for nasal congestion. Zyrtec for runny nose. Take Oseltamivir as prescribed Follow up with your primary care doctor Patient Language: Albanian Prescriptions: New oseltamivir 75 mg capsule 75 mg PO Q12H 5 Days Qty: 10 0RF No Action albuterol sulfate 90 mcg/actuation HFA aerosol inhaler INHALATION methocarbamol 750 mg tablet 750 mg PO QID PRN (Reason: muscle spasm) 7 Days Qty: 28 0RF ketorolac 10 mg tablet 10 mg PO Q6H PRN (Reason: pain) 5 Days Qty: 20 0RF tramadol 50 mg tablet 50 mg PO Q6H PRN (Reason: pain) Qty: 8 0RF baclofen 10 mg tablet 10 mg PO QID metformin 1,000 mg tablet 1,000 mg PO DAILY nitroglycerin 0.4 mg tablet, sublingual 0.4 mg SUBLINGUAL Q5M PRN (Reason: Pain) (DME) blood sugar diagnostic Strip See Rx Instructions .ROUTE .MEDSUPPLY Qty: 10 Rx Instructions: As directed (DME) lancets [OneTouch Delica Lancets] 33 gauge misc See Rx Instructions .ROUTE .MEDSUPPLY Qty: 100 Rx Instructions: As directed (DME) OneTouch Ultra Blue Test Strip Strip See Rx Instructions .ROUTE .MEDSUPPLY Qty: 10 Rx Instructions: As directed cyclobenzaprine 10 mg tablet 10 mg PO TID PRN (Reason: muscle spasm) Qty: 30 0RF tamsulosin [Flomax] 0.4 mg capsule 0.4 mg PO DAILY Qty: 14 0RF hydrocodone-acetaminophen 5-325 mg tablet 1 tablet PO Q12H PRN (Reason: pain) Qty: 10 0RF cyclobenzaprine 10 mg tablet 10 mg PO BID PRN (Reason: muscle spasm) Qty: 14 0RF famotidine [Pepcid] 20 mg tablet 20 mg PO DAILY Qty: 20 0RF methylphenidate HCl 20 mg Tablet 20 mg PO BID chlorthalidone 50 mg Tablet 50 mg PO DAILY amlodipine 10 mg Tablet 10 mg PO DAILY allopurinol 300 mg Tablet 300 mg PO DAILY Januvia 100 mg Tablet 100 mg PO DAILY methocarbamol [Robaxin-750] 750 mg tablet 750 mg PO Q4H Qty: 30 0RF naproxen 500 mg tablet 500 mg PO BID Qty: 30 0RF cyclobenzaprine 10 mg tablet 10 mg PO TID PRN (Reason: muscle spasm) Qty: 21 0RF diclofenac potassium 50 mg tablet 50 mg PO TID PRN (Reason: pain) Qty: 30 0RF Follow-up/Referrals: PHYSICIAN NOT ON STAFF,NONSTAFF [Non-Staff] -
[2024-11-15 23:45] VITALS: PULSE 87; RESP 20
[2024-11-15] MEDS: IPRATROPIUM 0.5 MG/ALBUTEROL SULFATE 2.5 MG AMPUL.NEB 3 ML INHALATION (23:49)
[2024-11-15 23:52] VITALS: PULSE 90; RESP 20
[2024-11-16 00:24] VITALS: BP 153/103; PULSE 108; RESP 20; O2SAT 100
== END 2024-11-16 00:28 | disposition home or self-care (01) ==
PROVIDERS: Emergency Medicine; Emergency Provider Physician Assistant
DX: J10.1 Influenza due to other identified influenza virus with other respiratory manifestations (principal); Z20.822 Contact with and (suspected) exposure to COVID-19; I10 Essential (primary) hypertension; E11.9 Type 2 diabetes mellitus without complications; E66.9 Obesity, unspecified; Z68.39 Body mass index [BMI] 39.0-39.9, adult; K21.9 Gastro-esophageal reflux disease without esophagitis; G47.30 Sleep apnea, unspecified; M17.0 Bilateral primary osteoarthritis of knee; F17.200 Nicotine dependence, unspecified, uncomplicated; Z86.16 Personal history of COVID-19; Z79.84 Long term (current) use of oral hypoglycemic drugs; Z79.899 Other long term (current) drug therapy; R00.0 Tachycardia, unspecified
CPT/HCPCS: 71046; 87637; 93005; 94640; 99283

== ENCOUNTER 2025-04-19 15:06 | Emergency (ER) | payer OTHER, SELFPAY ==
--- NOTE | ~2025-04-19 | XR_ITS ---
XR foot LT min 3V Ordering provider: Holli Cristobal MD History: . foot pain, atraumatic . Comparison: None. FINDINGS: BONES: No acute fracture or dislocation. Small bony fragment seen in the first metatarsophalangeal joint which may be loose bodies or fracture s. Clinical correlation advised. JOINT SPACES: Narrowing of the proximal interphalangeal joints of the third and fourth toes. No tarsa l coalition. SOFT TISSUES: Normal. IMPRESSION: Possible loose bodies in the joint space of the first metatarsophalangeal joint. Osteoarthritic changes of the proximal interphalangeal joints of the third and fourth toes. Reviewed, dictated and finalized at location A. IMPRESSION: Possible loose bodies in the joint space of the first metatarsophalangeal joint . Osteoarthritic changes of the proximal interphalangeal joints of the third and fourth toes.
--- OUTSIDE RECORDS SUMMARY | 2025-04-19 15:09 | XMS_ITS | Encounter Summary ---
Author Organization [facility] Address [address] [place] [address] Phone Care Team Providers Care Quality Assurance Test Program Manager Name Role Phone Igor Robertson APRN, CNP Primary Care Pr ovider Misael Saleem MD Unavailable Giovani Handy III, MD, Courtney Unavailable [phone] Reason for Visit * Reason Comments Medication Refill Encounter Details Date Type Department Care Team (Late st Contact Info) Description 09/05/2022 Refill [facility] - [facility] [address] [place] [id number] Igor Robertson APRN, NEL[place] [address] [address] Medication Refill Social History Tobacco Use Types Packs/Day Years Used Date Smoking Tobacco: Former Cigarettes 0.5 11 0 03/05/1989 - 03/05/2000 Smokeless Tobacco: Never Alcohol Use Standard Drinks/Week Comments Not Currently 0 (1 standard drink = 0.6 oz pur e alcohol) Education Answer Date Recorded What is the highest level of school you have completed or the highest degree you have received? 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 Requested Prescriptions Pending Prescriptions Disp Refills ibuprofen (MOTRIN) 800 MG Tablet [Pharmacy Med Name: IBUPROFEN 800MG TABLETS] 90 Tablet 1 Sig: TAKE 1 TABLET BY MOUTH EVERY 8 HOURS NEEDED FOR MODERATE TO SEVERE PAIN NSAIDs Protocol Passed - 09/05/2022 5:55 AM Passed - Normal serum creatinine in past 12 months CREATININE, BLOOD Date Value Ref Range Status 07/08/2022 0.90 0.80 - 1.30 mg/dL Final Passed - Visit with relevant provider in past 12 months or upcoming 90 days Recent Visits Date Type Provider Dept 07/08/22 Office Visit Igor Robertosn APRN, NEL[facility] 05/28/22 Office Visit Igor Robertson APRN, [facility] 05/13/22 Procedure Visit [facility] 05/13/22 Office Visit Igor Robertson APRN, [facility] 05/02/22 Office Visit Igor Robertson APRN, [facility] 03/04/22 Office Visit Igor Robertson APRN, [facility] 01/14/22 Office Visit Igor Robretson APRN, [facility] 12/05/21 Office Visit Igor Robertson APRN, DISTRICT SERVICE MANAGER [facility] Showing recent visits within past 365 days and meeting all other requirements Future Appointments Date Type Provider Dept 10/21/22 Appointment Igor Robertson APRN, DISTRICT SERVICE MANAGER [facility] Showing future appointments within next 90 days and meeting all other requirements Passed - No matching NSAID med order in past 45 days No matching medication orders between 07/22/2022 11:16 AM and 09/05/2022 11:16 AM Passed - AST less than 55 or ALT less than 90 in past 12 months SGOT (AST) Date Value Ref Range Status 07/08/2022 14 <=40 U/L Final SGPT (ALT) Date Value Ref Range Status 07/08/2022 19 <=41 U/L Final Passed - HGB greater than 10 or HCT greater than 30 in past 12 months HEMOGLOBIN (HGB) Date Value Ref Range Status 07/08/2022 13.8 13.0 - 16.5 g/dL Final HEMATOCRIT (HCT) Date Value Ref Range Status 07/08/2022 43.5 38.0 - 50.0 % Final documented in this encounter Plan of Treatment Upcoming Encounters Date Type Department Care Team (Latest Contact Info) Description 05/02/2025 1:00 PM CDT Outpatient Clinic Visit [facility] [address] [place] [address] Lang Barker PSYD [place] Discharge Disposition: Discharged to home or Selfcare 05/30/2025 10:00 AM CDT Office Visit [facility] - Family Medicine [facility] [address] [place] [address] Igor Robertson APRN, DISTRICT SERVICE MANAGER [address] [address] documented as of this encounter Visit Diagnoses Diagnosis Chronic right-sided low back pain with right-sided sciatica DDD (degenerative disc disease), lumbar Degeneration of lumbar or lumbosacral intervertebral disc documented in this encounter Additional Health Concerns Infection Onset Date Last Indicated Resolved Time COVID - 19 10/10/2023 10/10/2023 10/20/2023 12:1 6 AM 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
--- OUTSIDE RECORDS SUMMARY | 2025-04-19 15:09 | XMS_ITS | Encounter Summary ---
Author Organization [facility] , [facility] Address [address] [place] [address] Phone Care Team Providers Care Public Health Aides Teacher Name Role Phone MarceloIgor talavera Tucker RAMIREZ Primary Care Provider [phone] Reason for Visit * Reason Comments Med Refill Encounter Details Date Type Department Care Team (Late st Contact Info) Description 01/18/2023 Refill [place] [facility], [facility] [address] [place] [address] Chris Turner DO [address] [address] Social History Tobacco Use Types Packs/Day Years Used Date Smoking Tobacco: Former Cigarettes Q uit: 03/12/2014 Alcohol Use Standard Drinks/Week Comments No 0 (1 standard drink = 0.6 oz pur e alcohol) Sex and Gender Information Value Date Recorded Sex Assigned at Not on file Legal Sex Male 2:49 PM EDT Gender Identity Not on file Sexual Orientation Not on file COVID-19 Exposure Response Date Recorded In the last 10 days, have yo u been in contact with someone who was confirmed or suspected to have Coronavirus/COVID-19? No / Unsure 01/08/2023 1:10 PM PRECISION LATHE OPERATOR documented as of this encounter Miscellaneous Notes * Telephone Encounter - Lay Morataya CMA - 01/20/2023 8:22 AM CST duplicate documented in this encounter Plan of Treatment Upcoming Encounters Date Type Department Care Team (Late st Contact Info) Description 09/27/2025 12:30 PM PRECISION LATHE OPERATOR Office Visit [facility], [facility] [address] [facility] [address] [place] [phone] Chris Turner DO 12[address] [facility] 1 [place] [address] documented as of this encounter Visit Diagnoses Not on filedocumented in this encounter Care Teams Public Health Aides Teacher Relationship Specialty Start Date End Date Igor Robertson INDUSTRIAL RADIOGRAPHER 2 [facility] [address] [place] [address] PCP - General Nurse Practitioner 08/30/21 documented as of this encounter
--- OUTSIDE RECORDS SUMMARY | 2025-04-19 15:09 | XMS_ITS | Encounter Summary ---
Author Organization [facility] Address [address] 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 No / Unsure 07/08/2022 8:45 AM CDT documented as of this encounter Miscellaneous Notes * Telephone Encounter - Angy Haji RN - 08/06/2022 9:01 AM CDT Medication failed the protocol, provider to review and approve the medication order if appropriate. Requested Prescriptions Pending Prescriptions Disp Refills metFORMIN (GLUCOPHAGE) 1000 MG Tablet [Pharmacy Med Name: METFORMIN 1000MG TABLETS] 180 Tablet 1 Sig: TAKE 1 TABLET BY MOUTH TWICE DAILY WITH MEALS Biguanides Protocol Passed - 08/06/2022 6:20 AM Passed - Visit with relevant provider in past 6 months or upcoming 90 days Recent Visits Date Type Provider Dept 07/08/22 Office Visit Igor Robertson APRN, N[facility] 05/28/22 Office Visit Igor Robertson APRN, N[facility] 05/13/22 Procedure [facility]22 Office Visit Igor Robertson APRN, NEL[facility] 05/02/22 Office Visit Igor Robertson APRN, N[facility] 03/04/22 Office Visit Igor Robertson APRN, RADIO/TV TECHNICIAN [facility] Showing recent visits within past 182 days and meeting all other requirements Future Appointments Date Type Provider Dept 10/21/22 Appointment Igor Robertson APRN, RADIO/TV TECHNICIAN [facility] Showing future appointments within next 90 days and meeting all other requirements Passed - HgA1C on record in past 6 months HGB-A1C Date Value Ref Range Status 07/08/2022 5.5 4.0 - 6.0 % Final Passed - GFR on record in past 6 months GFR, EST. Date Value Ref Range Status 07/08/2022 >60 >=60 Final traZODone (DESYREL) 50 MG Tablet [Pharmacy Med Name: TRAZODONE 50MG TABLETS] 30 Tablet 2 Sig: TAKE 1 TABLET BY MOUTH EVERY NIGHT NEEDED FOR SLEEP Serotonin Modulators (6 Month Refill Only) Protocol Failed - 08/06/2022 6:20 AM Failed - Has an encounter in the past 6 months with a depression or anxiety visit diagnosis Failed - Patient has established therapy with Serotonin Modulators for at least 6 months Passed - Visit with relevant provider in past 6 months or upcoming 90 days Recent Visits Date Type Provider Dept 07/08/22 Office Visit Igor Robertson APRN, NEL[facility] 05/28/22 Office Visit Igor Robertson APRN, N[facility] 05/13/22 Procedure [facility] 05/13/22 Office Visit Igor Robertson APRN, NEL[facility] 05/02/22 Office Visit Igor Robertson APRN, NEL[facility] 03/04/22 Office Visit Igor Robertson APRN, N[facility] Showing recent visits within past 182 days and meeting all other requirements Future Appointments Date Type Provider Dept 10/21/22 Appointment Igor Robertson APRN, N[facility] Showing future appointments within next 90 days and meeting all other requirements Passed - No PRN Use for Trazodone documented in this encounter Plan of Treatment Upcoming Encounters Date Type Department Care Team (Latest Contact Info) Description 05/02/2025 1:00 PM CDT Outpatient Clinic Visit [facility] 1 [place] [address] Lang Barker PSYD [place] Discharge Disposition: Discharged to home or Selfcare 05/30/2025 10:00 AM CDT Office Visit [facility] - Family Medicine - [place] [address] [place] [address] Igor Robertson APRN, NELIA #[address] [address] documented as of this encounter Visit Diagnoses Diagnosis Primary insomnia Persistent disorder of initiating or maintaining sleep documented in this encounter Additional Health Concerns Infection Onset Date Last Indicated Resolved Time COVID - 19 10/10/2023 10/10/2023 10/20/2023 12:1 6 AM GROUP HOME SUPERVISOR documented as of this encounter Care Teams Applications Manager Relationship Specialty Start Date End Date Igor Robertson APRN, RADIO/TV TECHNICIAN #[address] [address] PCP - General Advanced Practice Nurse 07/27/21 Misael Saleem MD #[address] [address] Consulting Physician Cardiovascular Disease - Cardiology 12/26/22 01/05/25 Afshan Handy III, MD #2 [place] [address] Consulting Physician Urology 01/06/23 documented as of this encounter
--- OUTSIDE RECORDS SUMMARY | 2025-04-19 15:09 | XMS_ITS | Clinical Summary ---
Author Organization [facility] [employer] [facility] Address [address] [place] [address] Care Team Providers Care Ground Crew Lines Person Name Role Phone Igor Robertson APRN-TRANSFER TABLE OPERATOR HELPER Primary Care Pro vider Source Comments [facility],non-owned Affiliates and Associated Physician Practices is amultiple site organization consisting of ambulatory clinics and hospital sitesin [place], [place], [place] and [place]. This disclosure is being madepursuant to the Care Everywhere program and may not contain all information available regarding this patient. Last updated 18.[facility] [employer] [facility] [employer] Allergies Active Allergy Reactions Criticality Noted Date Comments Allopurinol Diarrhea 01/01/2023 Lisinopril Cough 02/14/2022 Nsaids Unknown 07/18/2023 Hx surgery Penicillins Swelling 10/13/2018 Medications * Be aware that medications may not be up to date on this document. Alwaysverify current medications with the patient. albuterol HFA (Proventil; Ventolin; Proair) 108 (90 Base) MCG/ACT inhaler Inhale 2 (two) puffs by mouth every 4 hours as needed 2 Active azelastine (Astelin) 0.1 % nasal spray 2 Active traZODone (Desyrel) 50 MG tablet Take 1 (one) tablet by mouth nightly as needed 3 Active ondansetron, disintegrating , (Zofran ODT) 4 MG tablet Take 1 (one) tablet by mouth every 6 hours as needed for Nausea/Vomiting Allow tablet to dissolve on the tongue 20 tablet 3 Active Additional Information Patient not taking.Reported on 07/18/2023 omeprazole (PriLOSEC) 20 MG capsule Take 1 (one) capsule by mouth once daily 30 capsule 3 Active HYDROcodone-ac etaminophen (Loraine) 10-325 MG tablet Take 1 (one) tablet by mouth every 8 hours as needed for Pain Active acetaminophen (Tylenol) 160 MG/5ML solution Take 31.25 mL by mouth every 8 hours 473 mL 3 Active irbesartan (Avapro) 150 MG tablet Take 1 (one) tablet by mouth once daily Active omeprazole (PriLOSEC) 20 MG capsuleIndicat ions:Heartburn TAKE 1 CAPSULE BY MOUTH DAILY BEFORE BREAKFAST 30 capsule 5 3 Active acetaminophen (Tylenol) 160 MG/5ML solution Take 31.25 mL by mouth every 8 hours 3 Discontin ued(No Pharm No AVS) Active Problems Problem Noted Date Diagnosed Date Morbid obesity 01/13/2023 Immunizations Immunization Administration Dates Next Due INFLUENZA VACCINE, QUADR. (F LUZONE; FLULAVAL; FLUARIX; AFLURIA QUADRIVALENT; 6MO+), 0.5 ML (IIV4) 10/13/2018 Family History Medical History Relation Name Comments Diabetes - Type 2 Mother Cancer - Colon Sister 1 Diabetes - Type 2 Sister 2 Relation Name Status Comments Mother Sister 1 Sister 2 Social History Tobacco Use Types Packs/Day Years Used Date Smoking Tobacco: Former Smokeless Tobacco: Never Tobacco Cessation:Counseling Given: Not Answered Overall Financial Resource Strain (CARDIA) Answe r Date Recorded How hard is it for you to pa y for the very basics like food, housing, medical care, and heating? Not hard at all 01/13/2023 [facility] Occupat ional Health - Occupational Stress Questionnaire Answer Date Recorded Do you feel stress - tense, restless, nervous, or anxious, or unable to sleep at night because your mind is troubled all the time - these days? Not at all 01/13/2023 Hunger Vital Sign Answer Date Recorded Within the past 12 months, y ou worried that your food would run out before you got the money to buy more. Never true 01/13/20 23 Within the past 12 months, t he food you bought just didn't last and you didn't have money to get more. Never true 01/13/2023 PRAPARE - Transportation Answer Date Re corded In the past 12 months, has l ack of transportation kept you from medical appointments or from getting medications? No 12/19 In the past 12 months, has l ack of transportation kept you from meetings, work, or from getting things needed for daily living? No 01/13/2023 Housing Stability Vital Sign Answer Russell e Recorded In the last 12 months, was t here a time when you were not able to pay the mortgage or rent on time? No 01/13/2023 In the last 12 months, how many places have you lived? 1 01/13/2023 In the last 12 months, was t here a time when you did not have a steady place to sleep or slept in a detention (including now)? No 01/13/2023 Sex and Gender Information Value Date Recorded Sex Assigned at Male 12/04/2022 2:05 PM RECREATION PROGRAM COORDINATOR Legal Sex Male 5:32 AM RECREATION PROGRAM COORDINATOR Gender Identity Male 12/04/2022 2:05 PM RECREATION PROGRAM COORDINATOR Sexual Orientation Straight 12/04/2022 2 :05 PM RECREATION PROGRAM COORDINATOR Last Filed Vital Signs Vital Sign Reading Time Taken Comments Blood Pressure 126/85 07/18/2023 9:28 AM CDT Pulse 85 07/18/2023 9:28 AM CDT Temperature 36.4 C (97.6 F) 07/18/2023 9:28 AM CDT Respiratory Rate 18 07/18/2023 9:28 AM CDT Oxygen Saturation 99% 07/18/2023 9:28 AM CDT Inhaled Oxygen Concentration - - Weight 129.9 kg (286 lb 6 oz) 07/18/2023 9:28 AM CDT Height 172.7 cm (5' 8) 07/18/2023 9:28 AM CDT Body Mass Index 43.54 07/18/2023 9:28 AM CDT Plan of Treatment Upcoming Encounters Date Type Department Care Team (Late st Contact Info) Description 05/17/2025 1:00 PM CDT Office Visit [facility] [address] [place] [address] Zena Lovett, CONSULTING DATABASE ADMINISTRATOR-TRANSFER TABLE OPERATOR HELPER [address] [facility] [address] [place] [address] Health Maintenance Due Date Last Done Comments COLOGUARD (AGES 45-75) - COLON CA SCREENING 1976 CT COLONOGRAPHY - COLON CA SCREENING 1976 FIT - COLON CA SCREENING 1976 FLEX SIG - COLON CA SCREENING 1976 HIV SCREENING 1991 DTAP/TDAP/TD VACCINES (1 - Tdap) 1995 HEPATITIS B VACCINE (1 of 3 - 19+ 3-dose series) 1995 COLON MONITORING 09/14/2023 09/14/2013 COLONOSCOPY - COLON CA SCREENING 09/14/2023 09/14/2013 Colorectal Cancer Screening 09/14/2023 COVID-19 VACCINE ( - season) 2024 02/21/2021, 01/24/2021 DEPRESSION SCREENING 11/17/2024 INFLUENZA VACCINE (Season Ended) 2025 11/02/2022, 07/27/2021, 11/06/2020, Additional history exists SCREENING FOR DIABETES 07/29/2026 , 07/29/2023, 03/26/2023, Additional history exists ZOSTER VACCINE (1 of 2) 2026 LIPID TESTING 07/08/2027 07/08/2022, 08/13/2021 HEPATITIS C SCREENING Completed 05/10/2023 , 05/10/2023, 05/10/2023 HIB VACCINE Aged Out No longer eligi ble based on patient's age to complete this topic HPV VACCINE Aged Out No longer eligi ble based on patient's age to complete this topic MENINGOCOCCAL (Group B) VACCINE SHARED DECISION-MAKING Aged Out No longer eligible based on patient's age to complete this topic MENINGOCOCCAL GROUPS A/C/Y/W VACCINE Aged Out No longer eligible based on patient's age to complete this topic PNEUMOCOCCAL VACCINE Aged Out No long er eligible based on patient's age to complete this topic Procedures Procedure Name Priority Date/Time Associated Diagnosis Comments HEMOGLOBIN A1C Routine 07/29/2023 12:30 PM CDT Morbid obesity Bariatric surgery status Vitamin deficiency Vitamin D deficiency Vitamin B deficiency Mineral deficiency DM (diabetes mellitus) type II, controlled, with peripheral vascular disorder from Last 3 Months or Most Recently Relevant to Health Maintenance Results * (ABNORMAL) HEMOGLOBIN A1C (HgbA1C) (07/29/2023 12:30 PM CDT) Hemoglobin A1c 6.1(H) 4.8 - 5.6 % [facility] ACCOUNT BILL Comment: . Prediabetes: 5.7 - 6.4 Diabetes: >6.4 Glycemic control for adults with diabetes: <7.0 Blood BLOOD SPECIMEN / Unknown 07/29/2023 12:30 PM CDT 07/29/2023 Narrative Resulting Agency Comment Lab Testing performed at: [facility] [id number] Zena Lovett CONSULTING DATABASE ADMINISTRATOR-TRANSFER TABLE OPERATOR HELPER LAB - CHEMISTRY O RDERABLES Final Result Performing Organization Address City/State/[facility] Co de Phone Number [facility] ACCOUNT BILL [address] [place] [address] from Last 3 Months or Most Recently Relevant to Health Maintenance Insurance [facility] [employer] Advance Directives * Full Code (Latest Code Status on File) Date Activated Date Inactivated Comments 01/13/2023 10:02 AM 01/15/2023 12:51 PM Care Teams Ground Crew Lines Person Relationship Specialty Start Date End Date Igor Robertson APRN-NELIA [address] [address] PCP - General Nurse Practitioner 01/01/23"
--- OUTSIDE RECORDS SUMMARY | 2025-04-19 15:09 | XMS_ITS | Encounter Summary ---
Author Organization [email or web address] , [facility] Address [address] [facility] [place] [address] Phone Care Team Providers Care Blindmaker Name Role Phone MarceloIgor talavera Tucker RAMIREZ Primary Care Provider [phone] Reason for Visit * Reason Comments Med Refill Encounter Details Date Type Department Care Team (Late st Contact Info) Description 07/29/2021 Refill [facility], [address] [place] [address] Chris Turner DO [address] [facility] 1 [place] [address] Social History Tobacco Use Types Packs/Day [...] on file documented as of this encounter Plan of Treatment Upcoming Encounters Date Type Department Care Team (Late Contact Info) Description 09/27/2025 12:30 PM FIELD SUPPORT REP Office Visit [facility], [facility] [address] [facility] [address] [place] [address] Chris Turner DO [address] [facility] 1 [place] [address] documented as of this encounter Visit Diagnoses Not on filedocumented in this encounter Care Teams Blindmaker Relationship Specialty Start Date End Date Igor Robertson APN [address] [place] [id number] PCP - General Nurse Practitioner 08/30/21 documented as of this encounter
--- OUTSIDE RECORDS SUMMARY | 2025-04-19 15:09 | XMS_ITS | Encounter Summary ---
Author Organization [facility] Address [address] [place] [address] Phone Care Team Providers Care Forest Pathologist Name Role Phone Igor Robertson APRN, CNP Primary Care Pr ovider Misael Saleem MD Unavailable Giovani Handy III, MD, Courtney Unavailable [phone] Reason for Visit * Reason Comments Medication Refill Encounter Details Date Type Department Care Team (Late st Contact Info) Description 07/18/2022 Refill 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 No / Unsure 07/08/2022 8:45 AM CDT documented as of this encounter Miscellaneous Notes * Telephone Encounter - Angy Haji RN - 07/18/2022 11:06 AM CDT Medication failed the protocol, provider to review and approve the medication order if appropriate. Requested Prescriptions Pending Prescriptions Disp Refills ibuprofen (MOTRIN) 800 MG Tablet [Pharmacy Med Name: IBUPROFEN 800MG TABLETS] 90 Tablet 1 Sig: TAKE 1 TABLET BY MOUTH EVERY 8 HOURS NEEDED FOR MODERATE TO SEVERE PAIN NSAIDs Protocol Passed - 07/18/2022 9:49 AM Passed - Normal serum creatinine in past 12 months CREATININE, BLOOD Date Value Ref Range Status 07/08/2022 0.90 0.80 - 1.30 mg/dL Final Passed - Visit with relevant provider in past 12 months or upcoming 90 days Recent Visits Date Type Provider Dept 07/08/22 Office Visit Igor Robertson APRN, NEL[facility] 05/28/22 Office Visit Igor Robertson APRN, NEL[facility] 05/13/22 Procedure Visit [facility] 05/13/22 Office Visit Igor Robertson APRN, NEL[facility] 05/02/22 Office Visit Igor Robertson APRN, NEL[facility] 03/04/22 Office Visit Igor Robertson APRN, PUBLIC SPEAKING TEACHER [facility] 01/14/22 Office Visit Igor Robertson APRN, PUBLIC SPEAKING TEACHER [facility] 12/05/21 Office Visit Igor Robertson APRN, PUBLIC SPEAKING TEACHER [facility] 07/27/21 Office Visit Igor Robertson APRN, PUBLIC SPEAKING TEACHER [facility] Showing recent visits within past 365 days and meeting all other requirements Future Appointments No visits were found meeting these conditions. Showing future appointments within next 90 days and meeting all other requirements Passed - No matching NSAID med order in past 45 days No matching medication orders between 06/03/2022 11:06 AM and 07/18/2022 11:06 AM Passed - AST less than 55 [...] 05/02/2025 1:00 PM CDT [facility] 1 [place] [address] Lang Barker PSYD [place] Discharge Disposition: Discharged to home or Selfcare 05/30/2025 10:00 AM CDT Office Visit [facility] - Family Medicine [facility] #[address] [place] [address] Igor Robertson APRN, NELIA #[address] [address] documented as of this encounter Visit Diagnoses Diagnosis Chronic right-sided low back pain with right-sided sciatica DDD (degenerative disc disease), lumbar Degeneration of lumbar or lumbosacral intervertebral disc documented in this encounter Additional Health Concerns Infection Onset Date Last Indicated Resolved Time COVID - 19 10/10/2023 10/10/2023 10/20/2023 12:1 6 AM CATTLE ALLEY WORKER documented as of this encounter Care Teams Forest Pathologist Relationship Specialty Start Date End Date Igor Robertson APRN, NELIA #[address] [address] PCP - General Advanced Practice Nurse 07/27/21 Misael Saleem MD #[address] [facility] [address] [address] Consulting Physician Cardiovascular Disease - Cardiology 12/26/22 01/05/25 Afshan Handy III, MD #[address] [place] [address] Consulting Physician Urology 01/06/23 documented as of this encounter
--- OUTSIDE RECORDS SUMMARY | 2025-04-19 15:09 | XMS_ITS | Clinical Summary ---
Author Organization [facility] Address [address] [place] [address] Phone Care Team Providers Care Regulatory Affairs Coordinator Name Role Phone Igor Robertson APRN, BENEFITS PROCESSOR Primary Care Pr ovider Rozina CHASE MD, Afshan Unavailable [phone] Allergies Active Allergy Reactions Criticality Noted Date Comments Lisinopril Unknown 07/27/2021 Nsaids Other (see Comments) 10/10/2023 Penicillins Swelling 10/13/2018 Medications Blood Pressure Kit Use to check blood pressure daily. 1 Each 3 Active omeprazole (PriLOSEC) 20 MG CAPSULE DELAYED RELEASE TAKE 1 CAPSULE BY MOUTH DAILY BEFORE BREAKFAST 3 Active azelastine (ASTELIN) 0.1 % Solution 2 Sprays by Nasal route 2 times daily. Use in each nostril as directed 30 mL 5 4 Active albuterol 108 (90 Base) MCG/ACT Aerosol Solution take 2 Puffs by inhalation every 4 hours as needed for Wheezing. 18 g 5 4 Active Jardiance 10 MG Tablet Take 10 mg by mouth. 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 90 Tablet 3 5 Active Tirzepatide (Mounjaro) 10 MG/0.5ML Solution Auto-injectorIn dications:Type 2 diabetes mellitus without complication, without long-term current use of insulin 10 mg by Subcutaneous route once a week. 2 mL 5 5 Active HYDROcodone-jim taminophen (NORCO) 7.5-325 MG TabletIndicatio ns:DDD (degenerative disc disease), lumbar Take 1 Tablet by mouth every 8 hours as needed for Moderate or more severe pain. 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 03/21/2025 Right sided sciatica 03/01/2024 Right ankle swelling 03/01/2024 Acquired foot deformity, left 03/01/2024 Sleep apnea 01/14/2022 Obesity 01/14/2022 Vitamin D deficiency 08/13/2021 Hypertension Diabetes mellitus DDD (degenerative disc disease), lumbar OA (osteoarthritis) of knee Chronic pain Encounters Date Type Department Care Team Description 04/06/2025 1:00 PM CDT Outpatient Clinic Visit [facility] [address] [place] [address] Lang Barker, CHANDANA Unspecified neurodevelopmental disorder (Primary Dx) Discharge Disposition: Discharged to home or Selfcare 04/05/2025 Travel 03/21/2025 2:00 PM CDT Outpatient Clinic Visit [facility] [address] [place] [address] Igor Robertson APRN, Lang Cosme, CHANDANA Unspecified neurodevelopmental disorder (Primary Dx) Discharge Disposition: Discharged to home or Selfcare 03/21/2025 Travel 03/15/2025 MyChart RX Renewal [facility] [place] [address] Igor Robertson APRN, NELIA Medication Renewal Declined 02/09/2025 Travel 02/08/2025 MyChart RX Renewal [facility] [place] [address] Igor Robertson APRN, CNP Medication Renewal Reviewed 01/28/2025 Results Follow-Up [facility] [place] [address] Igor Robertson APRN, CNP CMP (COMPREHENSIVE METABOLIC PANEL), HEMOGLOBIN A1C W/ ESTIMATED GLUCOSE, UR MICROALBUMIN/CREATININE RATIO RANDOM, Additional followed-up results: 2 01/27/2025 8:45 AM CDT Office Visit [facility] [place] [address] Igor Robertson APRN, NELIA Primary hypertension (Primary Dx); Type 2 diabetes mellitus without complication, without long-term current use of insulin (HCC); Primary osteoarthritis involving multiple joints; Attention or concentration deficit Discharge Disposition: Discharged to home or Selfcare 01/27/2025 Travel from Last 3 Months Immunizations Immunization Administration Dates Next Due Covid-19, Mrna, Lnp-s, Pf, 3 0 Mcg/0.3 Ml Dose ([employer]) 02/21/2021,01/24/2021 Influenza Vaccine 09/05/2011,10/22/2010 Influenza Vaccine, Quadrivalent, PF 08/18,11/02/2022,07/27/2021,10/13 Influenza, Injectable, Quadrivalent 11/06/2020,1 Pneumococcal Vaccine Adult - 23 Valent 4 Pneumococcal conjugate PCV20 , polysaccharide OVF184 conjugate, adjuvant, PF 05/25/2024 TDAP Vaccine 10/22/2010 Family History Medical History Relation Name Comments Heart Attack Brother 1 Brandon Arthritis Brother 2 Hood Diabetes Brother 2 Hood Heart Attack Father Sterling oswaldo Arthritis Half-Brother 1 Matt No Known Problems Half-Sister 1 Lawada Aneurysm Half-Sister 2 Annie Arthritis Half-Sister 2 Annie No Known Problems Half-Sister 3 Marichuy No Known Problems Half-Sister 4 Zaritha No Known Problems Half-Sister 5 Gwynell No Known Problems Half-Sister 6 Rozilyn Colon Cancer Half-Sister 7 Jacqueline 50s No Known Problems Maternal Grandfather No Known Problems Maternal Grandmother Colon Polyps Mother Belkis fane Diabetes Mother Belkis fane Heart Attack Mother Belkis fane Lung Cancer Mother Belkis fane No Known Problems Paternal Grandfather No Known Problems Paternal Grandmother Arthritis Sister Liliane Diabetes Sister Liliane Seizures Neg Hx Relation Name Status Comments Brother 1 Brandon Brother 2 Hood Alive Father Sterling fannubia Half-Brother 1 Matt Alive Same mother Half-Brother 2 Parveen Same mother Half-Sister 1 Lawada Alive Same mother Half-Sister 2 Annie Alive Same mother Half-Sister 3 Marichuy Alive Same mother Half-Sister 4 Zaritha Alive Same mother Half-Sister 5 Gwynell Alive Same mother Half-Sister 6 Rozilyn Alive Same mother Half-Sister 7 Jacqueline Alive Same mother Maternal Grandfather Maternal Grandmother Mother Belkis allen Paternal Grandfather Paternal Grandmother Sister Liliane Alive Social History Tobacco Use Types Packs/Day Years Used Date Smoking Tobacco: Former Cigarettes 0.5 11 0 03/05/1989 - 03/05/2000 Smokeless Tobacco: Never Tobacco Cessation:Counseling Given: Not Answered Alcohol Use Standard Drinks/Week Comments Not Currently 0 (1 standard drink = 0.6 oz pur e alcohol) [facility] Utilities Answer Date Recorded In the past 12 months has th e electric, gas, oil, or water company threatened to shut off services in your home? No 05/25/2024 Social Connection and Isolat ion Panel [NHANES] Answer Date Recorded Frequency of Communication w ith Friends and Family Not on file 05/25/2024 How often do you get togethe r with friends or relatives? More than three times a week 05/25/2024 How often do you attend chur ch or caodaism services? More than 4 times per year 05/25/2024 Do you belong to any clubs o r organizations such as druze groups, unions, fraternal or athletic groups, or school groups? Yes 05/25/2024 How often do you attend meet ings of the clubs or organizations you belong to? 1 to 4 times per year 05/25/2024 Marital Status Not on file 05/25/2024 AUDIT-C Answer Date Recorded Q1: How often do you have a drink containing alcohol? Never 05/25/2024 Q2: How many drinks containi ng alcohol do you have on a typical day when you are drinking? Patient does not drink Q3: How often do you have si x or more drinks on one occasion? Never 05/25/2024 Overall Financial Resource Strain (CARDIA) Answe r Date Recorded How hard is it for you to pa y for the very basics like food, housing, medical care, and heating? Not hard at all 05/25/2024 PHQ-2 Answer Date Recorded Total Score - Questions 1-9 0 01/15 [facility] - Occupational Stress Questionnaire Answer Date Recorded Do you feel stress - tense, restless, nervous, or anxious, or unable to sleep at night because your mind is troubled all the time - these days? Not at all 05/25/2024 Exercise Vital Sign Answer Date Recorde d On average, how many days pe r week do you engage in moderate to strenuous exercise (like a brisk walk)? 4 days 02/09/2025 On average, how many minutes do you engage in exercise at this level? 30 min 02/09/2025 Hunger Vital Sign Answer Date Recorded Within the past 12 months, y ou worried that your food would run out before you got the money to buy more. Never true 05/25/20 24 Within the past 12 months, t he food you bought just didn't last and you didn't have money to get more. Never true 05/25/2024 PRAPARE - Transportation Answer Date Re corded In the past 12 months, has l ack of transportation kept you from medical appointments or from getting medications? No 07/2024 In the past 12 months, has l ack of transportation kept you from meetings, work, or from getting things needed for daily living? No 05/25/2024 Housing Stability Vital Sign Answer Russell e Recorded In the last 12 months, was t here a time when you were not able to pay the mortgage or rent on time? No 02/29/2024 Number of Places Lived in the Last Year Not on f ile 02/29/2024 In the last 12 months, was t here a time when you did not have a steady place to sleep or slept in a senior living (including now)? No 02/29/2024 Education Answer Date Recorded What is the highest level of school you have completed or the highest degree you have received? 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 Gender Identity Not on file Sexual Orientation Not on file Last Filed Vital Signs Vital Sign Reading Time Taken Comments Blood Pressure 122/86 01/27/2025 8:44 AM CDT Pulse 80 01/27/2025 8:44 AM CDT Temperature 36.4 C (97.6 F) 01/27/2025 8:44 AM CDT Respiratory Rate 18 01/27/2025 8:44 AM CDT Oxygen Saturation 97% 01/27/2025 8:44 AM CDT Inhaled Oxygen Concentration - - Weight 122 kg (268 lb 14.4 oz) 01/27/2025 8:44 A M CDT Height 172.7 cm (5' 8) 01/27/2025 8:44 AM CDT Body Mass Index 40.89 01/27/2025 8:44 AM CDT Plan of Treatment Upcoming Encounters Date Type Department Care Team (Latest Contact Info) Description 05/02/2025 1:00 PM CDT Outpatient Clinic Visit [facility] [address] [place] [address] Lang Barker PSYD [place] Discharge Disposition: Discharged to home or Selfcare 05/30/2025 10:00 AM CDT Office Visit [facility] - [facility] [address] [place] [address] Igor Robertson APRN, BENEFITS PROCESSOR [address] [address] Health Maintenance Due Date Last Done Comments Diabetes: Foot Exam 1976 Hepatitis B Immunization (1 of 3 - 19+ 3-dose series) 1995 Td Immunization Every 10 Years (Adults With 1 Tdap) 10/22/2020 10/22/2010 Diabetes: Eye Exam 05/13/2023 05/13/2022 SARS-COV-2 Immunization ( season) 2024 11/02/2022, 12/16/2021, 02/21/2021, Additional history exists Influenza Immunization (Season Ended) 2025 09/08/2023, 11/02/2022, 07/27/2021, Additional history exists Diabetes: Hemoglobin A1c 07/30/2025 025, 09/20/2024, 09/13/2024, Additional history exists Diabetes: Nephropathy Screening 01/27/2026 01/27/2025, 01/27/2025, 09/13/2024, Additional history exists Colonoscopy 03/18/2032 03/18/2022, 09/14/2013 Colorectal Cancer Screening 03/18/2032 Respiratory Syncytial Virus (RSV) Immunization (Adult) (1 - 1-dose 75+ series) 2051 03/18/2022, 09/14/2013 DTaP/Tdap/Td Immunization Discontinued 10/22/2010 Hepatitis C Virus (HCV) Screening Completed 05/10/2023 Pneumococcal Immunization Combined Completed 05/25/2024, 01/28/2014 Human Papillomavirus (HPV) Immunization Aged Out No longer eligible based on patient's age to complete this topic Meningococcal Immunization (ACWY) Aged Out No longer eligible based on patient's age to complete this topic Rotavirus Immunization Aged Out No lo nger eligible based on patient's age to complete this topic Goals Goal Patient Goal Type Associated Problems Recent Progress Patient-Stated? Author Psychological assessment Behavioral Health On track(04/06 3:16 PM CDT) No Lang Barker PSYD Note: Participate fully in a psychological assessment to determine the source of his cognitive issues, ruling out a neurodevelopmental condition (ADHD. SLD), within the next 60 days. Procedures Procedure Name Priority Date/Time Associated Diagnosis Comments CBC WITH AUTO DIFFERENTIAL Routine 01/27/2025 9:42 AM CDT Type 2 diabetes mellitus without complication, without long-term current use of insulin (HCC) BILIRUBIN DIRECT (CONJUGATED) Routine 01/27/2025 9:42 AM CDT Elevated bilirubin UR MICROALBUMIN/CREATININE RATIO RANDOM Routine 01/27/2025 9:42 AM CDT Type 2 diabetes mellitus without complication, without long-term current use of insulin (HCC) HEMOGLOBIN A1C W/ ESTIMATED GLUCOSE Routine 01/27/2025 9:42 AM CDT Type 2 diabetes mellitus without complication, without long-term current use of insulin (HCC) CMP (COMPREHENSIVE METABOLIC PANEL) Routine 01/27/2025 9:42 AM CDT Type 2 diabetes mellitus without complication, without long-term current use of insulin (HCC) COMPLETE BLOOD COUNT (CBC) WITH DIFF Routine 01/27/2025 9:42 AM CDT Type 2 diabetes mellitus without complication, without long-term current use of insulin (HCC) DIABETIC BILATERAL RETINAL IMAGING WITH COMPUTERIZED INTERPRETATION Routine 05/13/2022 10:08 AM CDT Type 2 diabetes mellitus with microalbuminuria, without long-term current use of insulin (HCC) from Last 3 Months or Most Recently Relevant to Health Maintenance Results * HEMOGLOBIN A1C W/ ESTIMATED GLUCOSE (01/27/2025 9:42 AM CDT) HGB-A1C 4.7 4.0 - 6.0 % 01/27/2025 10:59 AM CDT [facility] Est Average Glucose 88.2 mg/dL 01/27/2025 10:59 AM CDT [facility] Blood Venipuncture / Unknown 01/27/2025 9:42 AM CDT 01/27/2025 10:25 AM CDT [facility] - 01/27/2025 10:59 AM CDT HEMOGLOBIN A1C: DIABETIC PATIENTS: WELL-CONTROLLED: 6.2 - 7.0 INTERMEDIATE WELL-CONTROLLED: 7.0 - 9.0 POORLY-CONTROLLED: >9.0 Specimens containing greater than 5% of Hemoglobin F may result in lower than expected % HbA1C results. us Igor Robertson COMMERCIAL MARKETING SPECIALIST, BENEFITS PROCESSOR CHEMISTRY ORDERA BLES Final Result [facility] [place] [address] * (ABNORMAL) CBC WITH AUTO DIFFERENTIAL (01/27/2025 9:42 AM CDT) WBC 9.70 4.00 - 12.00 10(3)/mcL 01/27/2025 10:31 AM CDT [facility] RBC 5.10 4.40 - 5.80 10(6)/[facility] 01/27/2025 10:31 AM CDT [facility] HEMOGLOBIN (HGB) 14.2 13.0 - 16.5 g/dL 01/27/2025 10:31 AM CDT [facility] HEMATOCRIT (HCT) 41.8 38.0 - 50.0 % 01/27/2025 10:31 AM CDT [facility] MCV 82.0 82.0 - 96.0 fL 01/27/2025 10:31 AM CDT [facility] MCH 27.8 26.0 - 32.0 pg 01/27/2025 10:31 AM CDT [facility] MCHC 34.0 31.0 - 36.0 g/dL 01/27/2025 10:31 AM CDT [facility] PLATELET COUNT 256 140 - 440 10(3)/[facility] 01/27/2025 10:31 AM CDT [facility] RDW 12.7 11.8 - 15.5 % 01/27/2025 10:31 AM CDT [facility] MPV 9.6 8.0 - 12.6 fL 01/27/2025 10:31 AM CDT [facility] NEUTROPHILS 62.3 40.0 - 68.0 % 01/27/2025 10:31 AM CDT [facility] LYMPHOCYTES 26.0 19.0 - 49.0 % 01/27/2025 10:31 AM CDT [facility] MONOCYTES 7.2 3.0 - 13.0 % 01/27/2025 10:31 AM CDT [facility] EOSINOPHILS 3.9 0.0 - 8.0 % 01/27/2025 10:31 AM CDT [facility] BASOPHILS 0.6 0.0 - 1.0 % 01/27/2025 10:31 AM CDT [facility] ABSOLUTE NEUTROPHILS 6.04(H) 1.40 - 5.30 10(3)/[facility] 01/27/2025 10:31 AM CDT [facility] ABSOLUTE LYMPHOCYTES 2.52 0.90 - 3.30 10(3)/[facility] 01/27/2025 10:31 AM CDT [facility] ABSOLUTE MONOCYTES 0.70 0.10 - 0.90 10(3)/[facility] 01/27/2025 10:31 AM CDT [facility] ABSOLUTE EOSINOPHIL 0.38 0.00 - 0.50 10(3)/[facility] 01/27/2025 10:31 AM CDT [facility] ABSOLUTE BASOPHILS 0.06 0.00 - 0.10 10(3)/[facility] 01/27/2025 10:31 AM CDT [facility] NRBC PER 100 WBC 0 01/28/20 10:31 AM CDT [facility] Blood Venipuncture / Unknown 01/27/2025 9:42 AM CDT 01/27/2025 10:25 AM CDT us Igor Robertson COMMERCIAL MARKETING SPECIALIST, BENEFITS PROCESSOR HEMATOLOGY ORDER CLIFF Final Result [facility] [address] [place] [address] * (ABNORMAL) UR MICROALBUMIN/CREATININE RATIO RANDOM (01/27/2025 9:42 AM CDT) RAN UR MICROALBUMIN 5.80 mg/dL 01/27/2025 10:45 AM CDT [facility] Comment:No reference range h as been established. Consider Clinical Correlation. CREATININE URINE 126.7 mg/dL 01/28/20 10:45 AM CDT [facility] Comment:No reference range h as been established. Consider Clinical Correlation. ALB/CREAT RATIO 46(H) 0 - 30 mg/g CRE 01/27/2025 10:45 AM CDT [facility] Urine Non-Phlebotomy Collection / Unknown 01/27/2025 9:42 AM CDT 01/27/2025 10:28 AM CDT us Igor Robertson APRN, CNP URINE ORDERABLES Final Result [facility] [address] [place] [address] * (ABNORMAL) CMP (COMPREHENSIVE METABOLIC PANEL) (01/27/2025 9:42 AM CDT) SODIUM 141 136 - 145 mmol/L 01/27/2025 10:55 AM CDT [facility] POTASSIUM 3.9 3.5 - 5.1 mmol/L 01/27/2025 10:55 AM CDT [facility] CHLORIDE 107 98 - 107 mmol/L 01/27/2025 10:55 AM CDT [facility] CO2, VENOUS 26 22 - 30 mmol/L 01/27/2025 10:55 AM CDT [facility] ANION GAP 11.9 <18.0 mmol/L 01/27/2025 10:55 AM CDT [facility] GLUCOSE 98 70 - 99 mg/dL 01/27/2025 10:55 AM CDT [facility] BUN 9 9 - 21 mg/dL 01/27/2025 10:55 AM CDT [facility] CREATININE, BLOOD 0.86 0.70 - 1.30 mg/dL 01/27/2025 10:55 AM CDT [facility] BUN/CREATININE RATIO 10(L) 12 - 20 ratio 01/27/2025 10:55 AM CDT [facility] TOTAL PROTEIN 7.6 6.0 - 8.0 g/dL 01/27/2025 10:55 AM CDT [facility] ALBUMIN 4.2 3.5 - 5.0 g/dL 01/27/2025 10:55 AM [facility] A/G RATIO 1.2 1.0 - 2.2 01/27/2025 10:55 AM CDT [facility] CALCIUM 9.9 8.7 - 10.5 mg/dL 01/27/2025 10:55 AM [facility] T BILI 1.2 0.2 - 1.2 mg/dL 01/27/2025 10:55 AM [facility] SGOT (AST) 23 <43 U/L 01/27/2025 10:55 AM [facility] SGPT (ALT) 55 <56 U/L 01/27/2025 10:55 AM [facility] ALKALINE PHOSPHATASE 70 40 - 150 U/L 01/27/2025 10:55 AM [facility] IS THE PATIENT REQUIRED TO BE FASTING? No 01/27/2025 10:55 AM [facility] GFR, ESTIMATED >60 >=60 01/27/2025 10:55 AM [facility] Comment: Creatinine Clearance is the preferred criteria for selecting drug dose adjustments in renally impaired patients. The GFR is provided as additional pertinent clinical information. GFR is reported in mL/min/1.73 sq m. Calculation based on the Chronic Kidney Disease Epidemiology Collaboration (CKD- EPI) equation refit without adjustment for race. GFR, EST. >60 >=60 025 10:55 AM [facility] GFR, EST. NONAFRICAN >60 >=60 01/27/2025 10:55 AM [facility] Blood Venipuncture / Unknown 01/27/2025 9:42 AM CDT 01/27/2025 10:24 AM CDT Igor Robertson APRN, CNP CHEMISTRY ORDERA BLES Final Result Performing Organization Address City/[facility]/ZIP Co de Phone Number [facility] [address] [place] [address] * BILIRUBIN DIRECT (CONJUGATED) (01/27/2025 9:42 AM CDT) [facility] BILIRUBIN,DIREC T 0.5 0.0 - 0.5 mg/dL 01/27/2025 10:55 AM CDT [facility] Blood Venipuncture / Unknown 01/27/2025 9:42 AM CDT 01/27/2025 10:24 AM CDT Igor Robertson APRN, CNP CHEMISTRY ORDERA BLES Final Result Performing Organization Address [facility] de Phone Number [facility] [address] [place] [address] * (ABNORMAL) DIABETIC BILATERAL RETINAL IMAGING WITH COMPUTERIZED INTERPRETATION (05/13/2022 10:08 AMCDT) [facility] DIABETIC BILATERAL DIGITAL RETINAL IMAGING Exam quality insufficien t(A) [facility]ST[facility] Comment: Next Steps: Refer to network professional IDx Submission ID: [id number] Results were produced by a system that provides an artificial intelligence (AI) interpretation A positive result indicates a high risk of diabetic retinopathy with a severity of ETDRS level 35 or higher and/or macular edema. IDx-DR diabetic retinopathy exam does not replace a comprehensive eye exam. Other 05/13/2022 10:0 8 AM CDT Igor Robertson APRN, CNP OUTPT PROCEDURE ORDERABLES Final Result Performing Organization Address City/[facility]/ZIP Co de Phone Number EXTERNAL EKG DIGITAL DIAGNOSTICS from Last 3 Months or Most Recently Relevant to Health Maintenance Insurance [facility] Care Teams Regulatory Affairs Coordinator Relationship Specialty Start Date End Date Igor Robertson APRN, BENEFITS PROCESSOR [address] [facility] [address] [address] PCP - General Advanced Practice Nurse 07/27/21 Afshan Handy III, MD [address] [place] [address] Consulting Physician Urology 01/06/23
--- OUTSIDE RECORDS SUMMARY | 2025-04-19 15:09 | XMS_ITS | Data Portability ---
Author Organization [facility] JAMALNabil Address [address] [facility] [address] Care Team Providers Care Internal Auditor Name Role Phone AMBERARIANA Primary Care Provider Assessment Encounter Date Assessment Date Assessment LastModified by Organization Details LastModified Time 09/19/2020 09/19/2020 l [email or web address] Not available 23:28:06 11/28/2020 11/28/2020 constant pain in back, legs, hips. Numbness in feet, has been doing therapy at [place] and is not improving after seven visits. Can't see pain management since MRI was not approved. [email or web address] Not available 12/04/2020 18:22:01 Plan of Treatment Reminders Order Date Submit Date Provider Last Modified By Organization Details Last Modified Time Details Appointments None recorded. Lab HbA1c (hemoglob in A1c), blood 2019 020 In-Office Order, Internal Use Only DO Not Attach Compendium DO Not Attach Compendium, Do Not Delete/merge, [id number] 17:00:48 Referral physical therapist referral 2019 020 [facility], [address], [place], [address], 0 22:14:55 Procedures None recorded. Surgeries None recorded. Imaging MRI, lumbar spine, w/o contrast 2020 021 [facility], [address], [place], [address], 1 11:55:28 XR, lumbar spine, 2 view 2019 [facility], [address], [place], [address], 0 17:30:18 MRI, lumbar spine, w/ contrast 2019 020 [email or web address], [address], [place], [address], 0 11:22:11 Medication Orders cetirizin e 10 mg tablet [address] [facility]22363, [address], [place], [place], [id number], 1 12:57:08 ProAir HFA 90 mcg/actua tion aerosol inhaler 2020 [facility]58199, [address], [place], [place], [id number], 1 12:57:10 hydrocodo ne 7.5 mg-acetam inophen 325 mg tablet [address] [facility], [address], [place], [place], [id number], 1 12:57:12 ketorolac 60 mg/2 mL intramusc ular solution 2020 [email or web address] Not available 13:53:55 baclofen 10 mg tablet 2020 [facility]24719, [address], [place], [place], [id number], 1 03:32:25 hydrocodo ne 5 mg-acetam inophen 325 mg tablet 2019 [facility], [address], [place], [place], [id number], 1 13:01:25 azelastin e 137 mcg (0.1 %) nasal spray 2019 020 [facility] #84325, [address], [place], [place], [id number], 0 15:50:16 meloxicam 15 mg tablet 2019 020 [facility], [address], [place], [place], [id number], 1 15:05:38 methylphe nidate 20 mg tablet 2019 [facility], [address], [place], [place], [id number], 0 15:50:18 Patient TargetsNo targets recorded. Patient Instructions Encounter Date Encounter Id Patient Instructions Last Modified By Organization Details Last Modified Time 09/19/2020 [id number] back care and preventing injuries: care instructions [email or web address] Not available 09/19/2020 15:50:10 11/28/2020 [id number] controlling your asthma: care instructions [email or web address] Not available 11/28/2020 12:57:01 learning about asthma [email or web address] Not available 11/28/2020 12:57:01 Reason for Referral Physical Therapist Referral for Low back pain Referring Physician: Ariana Stark, Family Medicine, Encounter Date: 09/19/2020 Results Created Date Observation Date Name Description Value Unit Range Abnormal Flag Note LastModifiedBy Organization Detail LastModifiedTime 11/06/20 20 11/06/2020 HbA1c (hemo globi n A1c), blood HbA1c 5.7 Not Available In-Office Order Internal Use Only DO Not Attach Compendium DO Not Attach Compendium, Do Not Delete/merge, [id number] 11/06/2020 15:52:51 12/25/19 21 12/25/2020 XR, chest No observ ation record ed. [facility] [address], [place], [address], 01/09/2021 12:17:33 03/06/20 21 03/06/2021 XR, chest No observ ation record ed. [facility] [address], [place], [address], 03/25/2021 22:08:57 06/29/20 21 06/29/2021 XR, chest No observ ation record ed. [facility] [address], [place], [address], 07/10/2021 16:34:07 07/04/20 21 07/04/2021 XR, chest No observ ation record ed. [facility] [address], [place], [address], 07/10/2021 16:34:20 09/05/20 21 09/05/2021 XR, chest No observ ation record ed. [facility] [address] [place] [address] Dr, [place], [address], 09/10/2021 10:45:10 Result Notes None recorded. Problems Name Problem SNOMED Code Status Onset Date Resolution Date Notes Provider Name and Address Organization Details Recorded Time Essential hypertensi on 34906265 Active Not Available [facility] 15:06:53 Foot pain 67750451 Completed 01/20/2019 DANISHA Mccullough NP Attn: Accounting [facility], [place], [address] , [facility] 9 11:44:09 Upper respirator y infection 46453317 Active Not Available [facility] 15:06:53 Carpal tunnel syndrome 50308016 Active Not Available [facility] 15:06:53 Sleep apnea 93505912 Active Not Available [facility] 15:06:53 Obesity 198951920 Active Not Available [facility] 15:06:53 Influenza- like symptoms 558508437 Completed 01/20/2019 DANISHA Mccullough NP Attn: Accounting ,[address] [place], [place], [address] [place] [address] , [facility] 11:43:35 Gastroente ritis 39002099 Completed 01/20/2019 DANISHA Mccullough NP Attn: Accounting ,[address] [place], [place], [address] [place] [address] , [facility] 9 11:43:49 Gastric reflux 096733926 Active Not Available [facility] 15:06:53 Diarrhea 28473327 Completed 01/20/2019 DANISHA Mccullough NP Attn: Accounting ,[address] [place], [place], [address] [place] [address] , [facility] 9 11:43:52 Sinusitis 56265673 Completed 01/20/2019 DANISHA Mccullough NP Attn: Accounting ,[address] [place], [place], [address] [place] [address] , [facility] 9 11:43:28 Hyperglyci nemia 04641961 Active Not Available [facility] 15:06:53 Diabetes mellitus 37073398 Active Not Available [facility] 15:06:53 Problem Notes None recorded. Procedures Surgical History Date Name Laterality Status Provider Name and Address Organization Details Recorded Time 3 Colonoscopy with biopsy completed Ania Alvarez [facility] 02/24/2018 09:09:57 Imaging Results None recorded. Procedure Notes None recorded. Medical Equipment None Reported. Allergies Allergen ID Allergen Name Allergen Category Reaction Reaction Severity Criticality Documentation Date Start Date Code Code System Note Provider Name and Address Organization Details Recorded Time 328015 allopurin ol medicatio n diarrhea Not available Not available 06/08/2019 519 RxNorm GALDINO Zheng, [facility] 9 10:33:42 2901 Product containin g penicilli n (product) medicatio n Not available Not available Not available 10/11/2014 36700 8001 SNOMED GALDINO [place], [place] - [facility] 4 11:10:44 2902 lisinopri l medicatio n Not available Not available Not available 10/11/2014 53742 RxNorm GALDINO [place], MADAL[facility] - [facility] 4 11:10:44 Medications Name Sig Start Date Stop Date Status Note LastModified by Organization Details LastModified Time Prescript ion - Renewal active Cpap Supplies Not Available Not Available Not Available one touch delicate lancets check fasting blood sugar daily active Not Available Not Available No t Available cyclobenz aprine 10 mg tablet 11/28 completed Not Available Not Available Not Available budesonid e 32 mcg/actua tion nasal spray Rosebud 1 spray every day by intranas al route. 03/03 completed Not Available Not Available Not Available fluconazo le 100 mg tablet TAKE 1 TABLET BY MOUTH DAILY FOR 14 DAYS active Not Available Not Available No t Available atorvasta tin 40 mg tablet Take 1 tablet every day by oral route at dinner. active Not Available Not Available No t Available metformin 500 mg tablet TAKE 1 TABLET BY MOUTH TWICE DAILY 05/14 completed Not Available Not Available Not Available Augmentin 875 mg-125 mg tablet Take 1 tablet every 12 hours by oral route for 10 days. 08/31 completed has taken amoxicil garrett in the past Not Available Not Available Not Available clindamyc in HCl 300 mg capsule 01/20 completed Not Available Not Available Not Available cetirizin e 10 mg tablet TAKE 1 TABLET BY MOUTH EVERY DAY active Not Available Not Available No t Available azithromy adelaide 250 mg tablet TAKE 2 TABLETS (500 MG) BY ORAL ROUTE ONCE DAILY FOR 1 DAY THEN 1 TABLET (250 MG) BY ORAL ROUTE ONCE DAILY FOR 4 DAYS 04/13 completed Not Available Not Available Not Available ibuprofen 800 mg tablet Take 1 tablet 3 times a day by oral route as needed for 30 days. active Not Available Not Available No t Available tizanidin e 4 mg tablet TAKE 1 TO 2 TABLETS BY MOUTH THREE TIMES DAILY NEEDED active Not Available Not Available No t Available fluconazo le 150 mg tablet TAKE 1 TABLET BY MOUTH EVERY 72 HOURS active Not Available Not Available No t Available methylphe nidate 10 mg tablet Take 1 tablet twice a day by oral route. 02/27 completed Not Available Not Available Not Available hydrocodo ne 5 mg-acetam inophen 325 mg tablet TAKE 1 TABLET BY MOUTH THREE TIMES DAILY 01/15 completed Not Available Not Available Not Available methylphe nidate 20 mg tablet TAKE 1 TABLET BY MOUTH TWICE DAILY active Not Available Not Available No t Available meloxicam 15 mg tablet Take 1 tablet every day by oral route. 11/30 completed Not Available Not Available Not Available prednison e 20 mg tablet 04/13 completed Not Available Not Available Not Available acetamino phen 300 mg-codein e 30 mg tablet 01/20 completed Not Available Not Available Not Available chlorthal idone 25 mg tablet 11/28 completed Not Available Not Available Not Available chlorthal idone 50 mg tablet TAKE 1 TABLET BY MOUTH EVERY DAY 11/28 completed Not Available Not Available Not Available omeprazol e 40 mg capsule,d elayed release Take 1 capsule( s) every day by oral route for 30 days. 09/09 completed Not Available Not Available Not Available tramadol 50 mg tablet Take 1 tablet twice a day by oral route as needed. 04/13 completed Not Available Not Available Not Available ketorolac 10 mg tablet active Not Available Not Available Not Available Tessalon Perles 100 mg capsule Take 1 capsule 3 times a day by oral route for 10 days. 08/31 completed Not Available Not Available Not Available prednisol one acetate 1 % eye drops,yeimy pension 01/20 completed Not Available Not Available Not Available methocarb tran 750 mg tablet TAKE 1 TABLET BY MOUTH THREE TIMES DAILY NEEDED active Not Available Not Available No t Available OneTouch Ultra Test strips USE DIRECTED TWICE A DAY 05/22 completed Not Available Not Available Not Available baclofen 10 mg tablet TAKE 1 TABLET BY MOUTH FOUR TIMES DAILY active Not Available Not Available No t Available amlodipin e 10 mg tablet TAKE 1 TABLET BY MOUTH EVERY DAY active Not Available Not Available No t Available doxycycli ne monohydra te 100 mg capsule Take 1 capsule twice a day by oral route. 04/13 completed Not Available Not Available Not Available hydrocodo ne 7.5 mg-acetam inophen 325 mg tablet TAKE 1 TABLET BY MOUTH TWICE DAILY NEEDED FOR MODERATE TO SEVERE PAIN active Not Available Not Available No t Available cephalexi n 500 mg capsule Take 1 capsule twice a day by oral route for 10 days. 10/27 completed Not Available Not Available Not Available oseltamiv ir 75 mg capsule Take 1 capsule every day by oral route for 10 days. 02/12 completed Not Available Not Available Not Available ferrous sulfate 325 mg (65 mg iron) tablet Take 1 tablet twice a day by oral route. 10/08 completed Not Available Not Available Not Available metformin 1,000 mg tablet TAKE 1 TABLET BY MOUTH TWICE DAILY active Not Available Not Available No t Available nystatin 100,000 unit/gram topical cream APPLY TO THE AFFECTED AREA(S) BY TOPICAL ROUTE 2 TIMES PER DAY active Not Available Not Available No t Available nitroglyc gabrielle 0.4 mg sublingua l tablet take one every five minutes as needed for chest pain; if you need to take 3 tablets, take an aspirin and call 911. active Not Available Not Available No t Available dextroamp hetamine- amphetami ne ER 10 mg 24hr capsule,e xtend release Take 1 capsule every day by oral route. 12/04 completed Not Available Not Available Not Available monteluka st 10 mg tablet Take 1 tablet every day by oral route for 30 days. 03/14 completed Not Available Not Available Not Available allopurin ol 300 mg tablet TAKE 1 TABLET BY MOUTH EVERY DAY active Not Available Not Available No t Available hydrochlo rothiazid e 25 mg tablet 02/12 completed Not Available Not Available Not Available furosemid e 20 mg tablet Take 1 tablet every day by oral route as needed. 01/20 completed Not Available Not Available Not Available gabapenti n 100 mg capsule Take 1 capsule 3 times a day by oral route. 04/13 completed Not Available Not Available Not Available ergocalci ferol (vitamin D2) 1,250 mcg (50,000 unit) capsule TAKE 1 CAPSULE BY MOUTH 1 TIME A WEEK active Not Available Not Available No t Available irbesarta n 150 mg tablet TAKE 1 TABLET BY MOUTH AT BEDTIME active Not Available Not Available No t Available azelastin e 137 mcg (0.1 %) nasal spray Rosebud 2 sprays twice a day by intranas al route. active Not Available Not Available No t Available Nasonex 50 mcg/actua tion Rosebud SPRAY 2 SPRAY(S) EVERY DAY BY INTRANAS AL ROUTE FOR 30 DAYS. 10/08 completed Not Available Not Available Not Available ibuprofen 600 mg tablet 09/19 completed Not Available Not Available Not Available methylpre dnisolone 4 mg tablets in a dose pack FOLLOW PACKAGE DIRECTIO NS active Not Available Not Available No t Available albuterol sulfate HFA 90 mcg/actua tion aerosol inhaler INHALE 1 TO 2 PUFFS BY MOUTH EVERY 6 HOURS NEEDED active Not Available Not Available No t Available ketorolac 60 mg/2 mL intramusc ular solution Inject 2 mL by intramus cular route as directed . 2020 active Not Available Not Available Not Avai lable pioglitaz one 30 mg tablet TAKE 1 TABLET BY MOUTH EVERY DAY 08/02 completed Not Available Not Available Not Available ondansetr on 4 mg disintegr ating tablet 02/05 completed Not Available Not Available Not Available losartan 100 mg tablet TAKE 1 TABLET BY MOUTH EVERY DAY 09/14 completed Not Available Not Available Not Available fluticaso ne propionat e 50 mcg/actua tion nasal spray,yeimy pension One squirt each nostril twice daily. 05/22 completed Not Available Not Available Not Available doxycycli ne hyclate 100 mg tablet Take 1 tablet twice a day by oral route for 10 days. 09/01 completed Not Available Not Available Not Available naproxen 500 mg tablet TAKE 1 TABLET BY MOUTH TWICE DAILY active Not Available Not Available No t Available probeneci d 500 mg tablet TAKE 1 TABLET BY MOUTH once daily to lower uric acid. 04/13 completed Not Available Not Available Not Available Bactrim DS 800 mg-160 mg tablet Take 1 tablet every 12 hours by oral route for 7 days. 12/20 completed Not Available Not Available Not Available ciclopiro x 0.77 % topical cream 11/28 completed Not Available Not Available Not Available cyclobenz aprine 5 mg tablet 01/20 completed Not Available Not Available Not Available One Touch Ultra Test Strips use as directed twice daily 2017 active Not Available Not Available Not Avai lable Januvia 100 mg tablet TAKE 1 TABLET BY MOUTH EVERY DAY active Not Available Not Available No t Available Zyrtec 10 mg capsule Take 1 capsule by oral route for 30 days. 09/09 completed Not Available Not Available Not Available Dulera 200 mcg-5 mcg/actua tion HFA aerosol inhaler 09/09 completed Not Available Not Available Not Available Suprep Bowel Prep Kit 17.5 gram-3.13 gram-1.6 gram oral solution 04/13 completed Not Available Not Available Not Available OneTouch Delica Lancets 30 gauge 05/22 completed Not Available Not Available Not Available Virtussin AC 10 mg-100 mg/5 mL oral liquid Take 5 mL every 6 hours by oral route as needed. 02/12 completed Not Available Not Available Not Available Jardiance 10 mg tablet TAKE 1 TABLET BY MOUTH EVERY MORNING active Not Available Not Available No t Available Belsomra 10 mg tablet Take one tablet at bedtime. 03/03 completed Not Available Not Available Not Available OneTouch Ultra Blue Test Strip USE TWICE DAILY DIRECTED active Not Available Not Available No t Available OneTouch Delica Plus Lancet 33 gauge USE TO CHECK BLOOD SUGAR TWICE DAILY active Not Available Not Available No t Available ID NOW COVID-19 Test Kit TEST DIRECTED active Not Available Not Available No t Available Vitals Date Recorded Body height Provider Name an d Address Organization Details Last Updated DateTime 11/28/2020 171.45 cm Magaly Fulton MA [facility] 11/28/2020 10:41:46 Social History Question Answer Notes LastModified by Organizat ion Details LastModified Time Tobacco Smoking Status Former Smoker Marijuana- Occasionall y, did a couple of days ago to help with pain but stopped Magaly F[place]on MA null, [place] [facility] 11/28/2020 10:44:52 Do You Have An Advance Directive? No Information not available 11/28/2020 What Is Your Level Of Caffeine Consumption? None Information not available 01/20/2019 How Much Tobacco Do You Chew? None Information not available 10/23/2020 What Type Of Diet Are You Following? REGULAR Information not available 01/11/2020 Which Illicit Or Recreational Drugs Have You Used? None Information not available 11/28/2020 Education 2 Year College Information not available 11/28/2020 Are There Any Guns Present In Your Home? No [email or web address] Information not available 08/10/2015 Hard Of Hearing Or Deaf In One Or Both Ears? No [email or web address] Information not available 08/10/2015 Legally Blind In One Or Both Eyes? No [email or web address] Information not available 08/10/2015 Live Alone Or With Others? With Others [email or web address] Information not available 08/10/2015 What Was The Date Of Your Most Recent Tobacco Screening? 11/28/2020 Information not available 11/28/2020 How Many Children Do You Have? 4 Information not available 01/11/2020 Smoke Alarm In Home Yes Information not available 01/11/2020 At What Age Did You Start Smoking Tobacco? 17 Information not available 04/13/2020 Are You Passively Exposed To Smoke? Yes Information not available 01/11/2020 How Much Tobacco Do You Smoke? No Information not available 01/11/2020 General Stress Level Low Information not available 01/11/2020 On What Date Was Tobacco Cessation Counseling Provided? 04/13/2020 Information not available 04/13/2020 Sex: Unknown Functional Status Question Answer Note LastModified by Organizat ion Details LastModified Time What is your level of alcohol consumption? None Information not available 01/20/2019 Do you or have you ever used smokeless tobacco? Never used smokeless tobacco Information not available 01/11/2020 Are you currently employed? No Information not available 01/20/2019 Are you able to care for yourself? Yes Information not available 08/10/2015 What is your occupation? unemployed Information not available 11/28/2020 Do you or have you ever used e-cigarettes or vape? Former user of electronic cigarettes [email or web address] Information not available 09/14/2019 Mental Status None recorded. Family History Relationship Description Onset Age of this Age Resolved Age Notes LastModified by Organization Details LastModified Time Mother Coronary arteritis [email or web address] Not available 06/07 10:14:27 Mother Diabetes mellitus Not available 06/07 10:14:27 Mother Hypertensive disorder [email or web address] Not available 06/07 10:14:27 Father Hypertensive disorder Not available 06/07 10:14:27 Father Heart disease [email or web address] Not available 06/07 10:14:27 Medical History Condition Response Coronary Artery Disease N Other N Atrial Fibrillation N High Blood Pressure Y Depression N COPD N Blood Clots N Anxiety Disorder N Muscle, Joint, or Bone Problems N Acid Reflux (GERD) N Cancer N Stroke N ADHD Y High Cholesterol N Liver Disease N Schizophrenia N Headaches N Thyroid Problems N Kidney or Bladder Problems N GI Problems N Eating Disorder N Skin Problems N Anemia N Heart Attack ([place]) N Diabetes Y Seizures/Epilepsy N Asthma N Allergies Y Substance Abuse N Hepatitis N Heart Failure N Osteoporosis N Immunizations Vaccine Type Date Status Note Provider Nam e and Address Organization Details Recorded Time COVID-19, mRNA, LNP-S, PF, 30 mcg/0.3 mL dose 1 completed Not Available [facility] 06/07/2021 07:47:33 COVID-19, mRNA, LNP-S, PF, 30 mcg/0.3 mL dose 1 completed Not Available [facility] 06/07/2021 07:47:33 Influenza, split virus, quadrivalent, preservative 9 completed Not Available [facility] 12/04/2019 02:50:30 Influenza, split virus, quadrivalent, preservative 0 completed Magaly Fulton MA [facility] 11/06/2020 15:53:30 Past Encounters Encounter ID Performer Location Encounter Start Date Encounter Closed Date Diagnosis/Indication Diagnosis SNOMED-CT Code Diagnosis ICD10 Code Diagnosis Note [id number] Mita Quinones [facility] [address] 10/11/2014 10:55:59 10/13/2014 03:49:53 Essential hypertension 92768013 cont meds. reviewed lab--FBS 116/A1C5.4 ..but w/ wt gain, stay on metformin reports sleep apnea--nee ds new equipment. Needs to get name of supplier/ order from them Foot pain 11544546 to podiatry try to decr wt w/ some walking as jose try ice prn to feet [id number] Nafisa Rosario MD [address] [address] 11/16/2014 10:24:59 11/16/2014 11:30:58 Sinusitis 35117156 [place] [id number] Nafisa Rosario MD [address] [address] 12/09/2014 10:40:34 12/09/2014 14:45:57 Diabetes mellitus 66511427 REVIEWED DIET--need s to work on thar reviewed meds--take metformin am and supper ch bs's fast, and 2hr pp supper--go als set--never over 180; F 100-120, supper 140-150 [id number] Lester Bravo MD [address] [address] 01/31/2015 10:35:33 01/31/2015 13:42:29 Diabetes mellitus 12779734 Essential hypertension 55200992 Upper resp iratory infection 03204756 Carpal oscar linh syndrome 89713708 Sleep apnea 68363466 Obesity 350852187 [id number] Lester Bravo MD [address] [address] 06/06/2015 09:49:41 06/06/2015 11:11:57 Carpal tunnel syndrome 29286299 Diabetes mellitus 27374869 Essential hypertension 70775762 Hyperglycinemia 35119650 Obesity 207930608 Sleep apnea 03933813 Upper resp iratory infection 20020256 [id number] Lester Bravo MD [address] [address] 08/10/2015 11:34:32 08/10/2015 12:21:37 Diabetes mellitus 88408076 Essential hypertension 99754820 Obesity 606535361 Sinusitis 60544242 Sleep apnea 62755238 [id number] Lester Bravo MD [address] [address] 09/07/2015 09:42:05 09/07/2015 10:28:21 Carpal tunnel syndrome 60281847 G56.02 Diabetes mellitus 428373 09 E11.9 Essential hypertension 41757806 I10 Obesity 293508699 E66.9 Sleep apnea 06326233 G47 .30 [id number] Lester Bravo MD [address] [address] 12/12/2015 09:56:49 12/12/2015 11:01:45 Sinusitis 21555476 J32.9 Gastroenteritis 94742308 K52.9 Upper resp iratory infection 25299971 J06.9 Diabetes mellitus 364756 09 E11.9 [id number] Lester Bravo MD [address] [address] 12/21/2015 14:49:22 12/21/2015 15:52:15 Diabetes mellitus 63001647 E13.65 Gastric reflux 701775422 K21.9 Diarrhea 17499769 R19.7 [id number] Desmond Sol MD [address] [address] 02/23/2016 10:15:54 02/23/2016 11:07:08 Diabetes mellitus 70777058 E11.9 Essential hypertension 58341044 I10 Obesity 611810396 E66.9 Cut back on sodas, drink more h2o Sleep apnea 87898180 G47 .30 Allergic rhinitis 770792 04 J30.9 Stop omeprazole as it has not helped. Stop dulera as has no formal diagnosis of asthma, was put on it once for bronchitis . Stop afrin, has been using it for 1 year now!! Carpal oscar linh syndrome 67243200 G56.00 B/L, Has had NCS done, but did not get surgery. He does get paresthesi ae in both hands. Foot pain 81784164 M79.6 73 B/L foot pain 3-4 weeks. [id number] Desmond Sol MD [address] [address] 03/08/2016 10:19:43 03/08/2016 10:54:56 Diabetes mellitus 39788536 E13.65 Allergic rhinitis 307763 04 J30.9 Is weaning himself of the afrin. Is off dulera. Carpal oscar linh syndrome 40322027 G56.00 B/L, Has had NCS done, but did not get surgery. He does get paresthesi ae in both hands. He says his NCS test is in our records. Will refer for possible surgery. Essential hypertension 43090348 I10 Foot pain 69075874 M79.6 73 Ok to take ibuprofen as needed w/o fear of getting groggy. Gastric reflux 225983401 K21.9 Doing weel off omeprazole . Obesity 450453567 E66.9 Cut back on sodas, drink more h2o Sleep apnea 85869919 G47 .30 He says he needs new cpap supplies. Will contact his [employer] company. Microalbuminuria 5554000 06 R80.9 Will monitor. Continue losartan. Anemia 461670460 D64.9 [id number] Desmond Sol MD [facility] [address] [address] 06/07/2016 10:03:10 06/07/2016 10:45:43 Diabetes mellitus 17915950 E13.65 Decrease metformin to once daily only. Allergic rhinitis 190091 04 J30.9 Couldn't come off afrin. Anemia 227481690 D64.9 Did not take iron pills. will monitor. Carpal oscar linh syndrome 59648329 G56.00 is s/p cts surgery now. Doing well. Essential hypertension 72914435 I10 Gastric reflux 976928168 K21.9 Doing well off omeprazole . Sleep apnea 75764536 G47 .30 Alanine aminotransferase above reference range 851038522 R74.0 Monitor. Was normal in February. Is taking gym supplement s. Vitamin D deficiency 347 70396 E55.9 [id number] Desmond Sol MD [address] [address] 09/09/2016 13:57:47 09/10/2016 08:22:44 Acute bronchitis 84527814 J20.9 Acute diarrhea 872012014 R19.7 Supportive treatment. Imodium otc, increased fluids. [id number] Desmond Sol MD [address] [address] 10/08/2016 10:49:46 10/14/2016 16:18:49 Diabetes mellitus 61909515 E13.65 Well controlled . He needs to see Opthalmolo gy. Asked him to call their office and make appt. Sleep apnea 68623120 G47 .30 Essential hypertension 51739279 I10 Alanine aminotransferase above reference range 653356694 R74.0 Normal now. Gastric reflux 580073744 K21.9 Doing well off omeprazole . Anemia 743559153 D64.9 Allergic rhinitis 644622 04 J30.9 Trial of singulair. Vitamin D deficiency 347 48749 E55.9 Result pdg at this time, will wait on that. Microalbuminuria 5945025 06 R80.9 Will monitor. Continue losartan. His blood pressure and diabetes are well controlled . Insomnia 183852330 G47.0 0 Abscess of pinna 1814127 00 H60.02 [id number] Desmond Sol MD [address] [address] 12/20/2016 12:45:01 01/09/2017 16:01:05 Acute sinusitis 97930275 J01.90 Continue flonase. [id number] Desmond Sol MD [address] [address] 03/03/2017 14:15:47 03/28/2017 15:39:10 Edema of lower extremity 160911958 R60.0 In setting of microscopi c hematuria, could be nephrotic syndrome. Stop hctz. [id number] Jose Bullard MD [facility] ([facility]) [address] [place] [address] 03/03/2017 15:47:24 03/04/2017 15:29:16 Essential hypertension 29851897 I10 Continue Losartan and Furosemide as prescribed by Dr Sol. Low Sodium diet discussed. Diabetes mellitus 119628 09 E11.9 Needs good control. On Metformin at this time Abnormal urinalysis 1672 66318 R82.90 had trace blood on dipstick. Will get microscopy and routine labs Hypertensive disorder 38 476297 I10 continue current medication s. Check labs. Will decide follow up depending on lab results [id number] Desmond Sol MD [address] [address] 03/14/2017 10:45:09 04/03/2017 14:55:26 Essential hypertension 84322812 I10 Edema of l ower extremity 425717122 R60.0 2 d echo. Dyspnea at rest 32432807 7 R06.00 2 d echo. Fatigue 95643028 R53.83 Sleep study. [id number] Desmond Sol MD [address] [address] 04/10/2017 11:29:52 04/16/2017 11:09:55 Paresthesia of lower extremity 034582629 R20.2 Both sides. [id number] Desmond Sol MD [address] [address] 01/01/2018 15:27:25 01/02/2018 10:07:44 Acute sinusitis 62014046 J01.90 Continue flonase nasal spray. [id number] Desmond Sol MD [address] [address] 02/12/2018 11:03:21 02/13/2018 14:27:42 Gastric reflux 212755454 K21.9 Doing well off omeprazole . Obesity 438261153 E66.9 Essential hypertension 72600704 I10 Diabetes mellitus 708593 09 E13.65 Well controlled . He needs to see Opthalmolo gy. Asked him to call their office and make appt. Sleep apnea 83949656 G47 .30 Microalbuminuria 6973596 [address] Bullard in past, but still is getting protein in urine. Mass of right breast 822 9387409 1470272 N63.12 History of polyp of colon 215525891 Z86.010 Edema of l ower extremity 115467217 R60.0 Acute bronchitis 6922974 2 J20.9 [id number] DANISHA Mccullough NP [address] [address] 03/11/2018 10:34:56 03/13/2018 12:31:41 Low back pain 105918851 M54.5 Toradol 60 mg IM this visit. Start physical therapy. Continue conservati ve tx- ice, heat, rest, stretching , ROM exercises. F/u 2 weeks. Given note for work. [id number] DANISHA Mccullough NP [facility] [address] [place] [address] 03/23/2018 11:56:55 03/23/2018 17:31:30 Body mass index 40+ - severely obese 032164063 Z68.43 Refer to bariatric specialist Low back pain 334179407 M54.5 Continue physical therapy. Continue conservati ve tx- ice, heat, rest, stretching , ROM exercises. F/u 2 weeks. Given note for work [id number] DANISHA Mccullough NP [facility] [address] [place] [address] 04/23/2018 11:44:00 04/23/2018 16:54:30 Low back pain 984022704 M54.5 Continue physical therapy. Continue conservati ve tx- ice, heat, rest, stretching , ROM exercises. F/u 2 weeks. Given note for work [id number] DANISHA Mccullough NP [facility] [address] [place] [address] 05/22/2018 11:15:04 05/27/2018 12:05:59 Diabetes mellitus 25066865 E11.9 -Continue metformin 1000mg BID-Discus sed diabetic diet Low back pain 800330751 M54.5 -Continue physical therapy.-C ontinue conservati ve tx- ice, heat, rest, stretching , ROM exercises. -Obtain MRI of lumbar and thoracic spine-F/u 2 weeks or sooner if needed [id number] DANISHA Mccullough NP [facility] [address] [place] [address] 06/19/2018 11:35:37 06/22/2018 12:38:40 Diabetes mellitus 49813938 E11.9 -Continue metformin 1000 mg BID-Discus sed diabetic diet-Repea t HgA1C today Acute sinusitis 45362780 J01.90 -Start oral antibiotic -Allergen avoidance- OTC antihistam ingrid and flonase Low back pain 536869271 M54.5 -Continue physical therapy.-C ontinue conservati ve tx- ice, heat, rest, stretching , ROM exercises. -Obtain MRI of lumbar and thoracic spine-F/u 2 weeks or sooner if needed-Pt not working, employer will not let him work until he is released to full duty [id number] DANISHA Mccullough NP [facility] [address] [place] [address] 07/29/2018 10:41:18 07/29/2018 12:56:38 Pain of breast 61098734 N64.4 -Refer to breast surgeon [id number] DANISHA Mccullough NP [facility] [address] [place] [address] 09/01/2018 10:23:53 09/01/2018 11:05:13 Acute sinusitis 43047186 J01.90 -Start oral antibiotic -Allergen avoidance- OTC antihistam ingrid and flonase-F/ u prn [id number] DANISHA Mccullough NP [facility] [address] [place] [address] 10/27/2018 15:50:39 10/27/2018 17:08:08 Upper respiratory infection 14570267 J06.9 -Start oral antibiotic s-Proair prn-Conser vative tx- OTC antihistam ingrid, flonase, tylenol, ibuprofen, rest, increase fluids-F/u prn [id number] DANISHA Mccullough NP [facility] [address] [place] [address] 01/20/2019 10:52:43 01/20/2019 12:03:13 Diabetes mellitus 55605718 E11.9 -Continue metformin 1000 mg BID-Discus sed diabetic diet and exercise-R epeat HgA1C today (7.7) Family his tory of cancer of colon 907700668 Z80.0 -Refer to GI [id number] Ariana Stark MD [facility] [address] [place] [address] 02/05/2019 10:00:22 02/11/2019 07:55:44 Renal disorder due to type 2 diabetes mellitus 387967365 E11.22 Chronic diarrhea 9582791 09 K52.9 scheduled for colonoscop y with Nick Moser on March 01. strong family history of colon cancer. Acute righ t otitis media 495589448 H66.91 Chicken soup, orange juice, sugar free popsicles, tea with honey and lemon, hot Crystal Light lemonade, gatorade, and yogurt may make you feel better. Acute sinusitis 82744871 J01.90 Bilateral ankle joint pain 6680983989 9890860 M25.571 M25.572 Gynecomastia 1642972 N62 scheduled for mastectomy in [place] in the near future. [id number] Ariana Stark MD [facility] [address] [place] [address] 04/05/2019 10:44:01 04/14/2019 08:59:16 Thoracic back pain 307930926 M54.6 Disorder o f kidney due to diabetes mellitus 963197141 E11.21 [id number] Ariana Stark MD [facility] [address] [place] [address] 05/06/2019 10:19:36 05/14/2019 08:55:47 Acute sinusitis 84462090 J01.90 Type 2 cathleen betes mellitus 88515022 E11.65 Knee pain 69221840 M25.5 69 Fatigue 67592306 R53.83 Dependence on continuous positive airway pressure ventilation 696334627 Z99.11 encouraged consistent use of CPAP Chronic back pain 012616 002 M54.17 Pain of le ft ankle joint 9990407664 3389194 M25.314 [id number] Ariana Stark MD [facility] [address] [place] [address] 06/08/2019 10:17:29 06/14/2019 10:01:40 Type 2 diabetes mellitus 34437288 E11.65 Hyperuricemia 54985982 E 79.0 Obstructiv e sleep apnea syndrome 40922214 G47.33 uses CPAP all night every night Screening for malignant neoplasm of colon 966344368 Z12.11 Attention deficit hyperactivity disorder, 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 Strain of tendon of left ankle 7781236252 8384455 S96.912A [id number] Ariana Stark MD [facility] [address] [place] [address] 08/02/2019 13:58:23 2019 09:47:48 Chest pain 26512765 R07.2 Cramp in lower limb 4499 27817 R25.2 Bilateral knee pain 1187 187201 5403552 M25.562 M25.561 Peripheral circulatory disorder due to type 2 diabetes mellitus 646448867 E11.51 [id number] Ariana Stark MD [facility] [address] [place] [address] 09/14/2019 11:57:13 09/20/2019 08:29:43 History of chest pain 8203930907 4912315 Z87.898 Essential hypertension 60334985 I10 Attention deficit hyperactivity disorder, predominantly inattentive type 62778711 F90.0 Pain of le ft shoulder joint 1234137540 7326521 M25.512 Active or passive immunization 002478557 Z23 risks and benefits of immunizati ons reviewed, and patient agreed to receive shot [id number] Ariana Stark MD [facility] [address] [place] [address] 01/11/2020 09:49:39 01/17/2020 08:50:54 Lumbar radiculopathy 261689718 M54.16 Allergic rhinitis 772672 04 J30.9 Adult heal th examination 574871779 Z00.00 Type 2 cathleen betes mellitus 11449472 E11.65 Attention deficit hyperactivity disorder, predominantly inattentive type 65541998 F90.0 Depression screening 171 157968 Z13.31 depression related to chronic pain and difficulty sleeping due to the pain. [id number] Ariana Stark MD [facility] [address] [place] [address] 04/13/2020 09:35:34 04/18/2020 08:54:36 Renal disorder due to type 2 diabetes mellitus 541347550 E11.22 will try to get patient lined up for bariatric surgery to control the blood sugars and help preserve renal function. Acute panniculitis 24342 6004 M79.3 Morbid obesity 286302773 E66.01 [id number] Ariana Stark MD [facility] [address] [place] [place] [address] 09/19/2020 15:31:44 09/25/2020 08:41:48 Knee pain 50940028 M25.569 starting physical therapy in September Attention deficit hyperactivity disorder, predominantly inattentive type 54291219 F90.0 symptoms are relieved with use of stimulant medication ; can focus and achieve completed tasks without being distracted and doing something else. Low back pain 007795744 M54.5 lots of pain in back and radiating into the legs. Also has chronic pain in the knees. Acute sinusitis 45743889 J01.90 mainly allergy, but can get infected and develop headache and purulent nasal discharge. 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 started PT last week. Has trouble sleeping due to pain. Got much worse about a month ago. Has had back problems for years. Does not smoke. No incontinen ce or lack of ability to get an erection. No recent history of trauma, no car accident, no falls, but is feeling much worse and is having trouble getting out of bed, walking to bathroom, dressing, and walking to the kidtchen; can't fix himself a sandwich due to pain with standing. Lumbar radiculopathy 128 301928 M54.16 [id number] Ariana Stark MD [facility] [address] [place] [address] 11/06/2020 15:44:39 11/07/2020 07:27:37 Administration of influenza vaccine 59836220 Z23 Consent signed sd,rma Type 2 cathleen betes mellitus 07389441 E11.65 [id number] Ariana Stark MD [facility] [address] [place] [address] 11/28/2020 10:40:48 12/08/2020 15:29:54 Thoracic back pain 237530941 M54.6 Allergic rhinitis 352597 04 J30.9 Asthma 974556767 J45.90 9 Chronic back pain 386019 002 M54.17 constant pain in back, legs, hips. Numbness in feet, has been doing therapy at [place] and is not improving after seven visits. Can't see pain management since MRI was not approved. Moderate depression 3104 20616 F32.1 [id number] Ariana Stark [facility] [address] [place] [address] 11/29/2020 13:14:29 11/30/2020 14:56:24 Health Concerns Section Related Observation LastModified by Organization Detai ls LastModified Time None Recorded Concern Status LastModified by Organization Details LastModified Time None Recorded Advance Directives Directive N: Payers Encounter Date Sequence Insurance Name Policy Number Policy Goldstein Covered Member ID Goldstein Member ID Guarantor Name 09/19/2020 1 [employer] [id number] Nova Fane [id number] Luis Fane 10/23/2020 1 [employer] [id number] Nova Fane [id number] 42 Luis Fane 11/06/2020 1 [employer] [id number] Nova Fane [id number] Luis Fane 11/28/2020 1 [employer] [id number] Nova Fane [id number] Luis Fane 11/29/2020 1 [employer] [id number] Nova Fane [id number] Luis Miriam Notes Date Note Type Note Provider Name and Address Organization Details Recorded Time 09/19/2020 text/html ADHDReported bypatient.School Performance:struggl ed while in school Organization:poorly organized Appetite:normal appetite; no binge eating Mood:stable Sleep:good Friends:well connected with peers Family:no new stressors Self Esteem:high Attention:unable to focus Hyperactivity:is not hyperactive Impulsivity:impulsi ve Tasking:able to initiate tasks;unable to complete tasks;unable to move on to the next task;procrastinates ;tends to start everything and finish nothingNotes:has improved with methylphenidate; is getting things done and is more organized; less likely to forget things that he needs to bring with him.Musculoskeletal PainReported bypatient.Location: pain radiating to the buttocks;pain radiating to the legs bilateral; lumbar spine; bilateral knee Quality:sharp Severity:worsening; interference with sleep;interference with work Duration:present for >12 months Timing:intermittent Context:unusual activity; prior back problems; used medication for back pain Alleviating factors:rest; relieved by changing position Aggravating factors:movement/po sitioning; bending over; twisting Associated Symptoms:no fever; no tingling; no numbness of the legs/feet; no incontinence;weak limbs ADL (Activities of Daily Living)improve with medicationSinusitis /AllergyReported bypatient.Associate d Symptoms:no headache; no sinus pain;constantly clearing the throat;nasal discharge;nasal itching Onset/Timing:gradua l onset; recurring; occurs during particular seasons of the year fall Severity:does not limit daily activities; no nosebleeds (epistaxis);frequen t breathing through the mouth Context:worse with seasonal allergen exposure;worse around animals;worse around pollen;worse around dust;worse around molds;worse with environmental exposure Risk Factors:no current smoking or tobacco use; no chemotherapy; no HIV; no immunodeficiency;hi story of smoking;increased stress;family history of allergies;history of asthma;DM Alleviating factors:better with azelastine Aggravating factors:worse during an upper respiratory infection (a cold); worse when allergies are active; worse with excess fatigue Ariana Stark MD Attn: [address] [place], [address], [facility] 09/24/2020 23:29:39 10/23/2020 text/html Back PainReporte d bypatient.Location: pain radiating to the buttocks;pain radiating to the legs;pain radiating to the foot;pain radiating to the ankle Quality:sharp;tingl ing Severity:worsening; severe (8-10);interference with sleep;interference with work Duration:intermitte nt Onset/Timing:recurr ent episode Context:prior back problems; used medications for back pain Alleviating Factors:rest; relieved by changing position Aggravating Factors:movement/po sitioning;twisting; extending back Associated Symptoms:no fever; no incontinence; no shortness of breath;weak limbs;numbness of the legs/feet;tinglingN otes:legs feel weak; patient concerned he may fall, has to sit down frequently. Ariana Stark MD Attn: [employer] [place], [address], [facility] 10/26/2020 10:36:27 11/28/2020 text/html Anxiety/Depressi onR eported bypatient.Quality:s ymptoms are seasonal Severity:denies suicidal ideations; able to maintain relationships; does not interfere with activities of daily living Onset/Timing:gradua l; still present Context:major life stressors;family problems;trouble at work Modifying Factors:counselling ; social support Associated Symptoms:denies homicidal ideations; no visual/auditory hallucinations; mood good; no crying spells; sleeping well;anxiety with muscle tension;shortness of breathAsthma F/UReported bypatient.Severity: able to sleep during episode; does not interfere with daily activities; uses nebulizer/inhaler an average of 1-2 times/week lately Onset/Timing:chroni c Modifying Factors:allergies; exercise; illness; pets/animals; anxiety makes it worse Associated Symptoms:no fever; no fatigue; no irritability; normal appetite; no changes in productivity;cough; shortness of breathBack PainReported bypatient.Location: pain radiating to the buttocks;pain radiating to the legs;pain radiating to the ankle; lumbar and thoracic Quality:sharp;tingl ing Severity:worsening; pain level 9/10;interference with sleep;interference with work Duration:chronic Onset/Timing:recurr ent episode Context:prior back problems; used medications for back pain; had evaluations by back specialist Alleviating Factors:rest; relieved by changing position Aggravating Factors:movement/po sitioning;twisting; flexing back;extending back Associated Symptoms:no fever; no weak limbs; no incontinence;numbne ss of the legs/feet;tingling; shortness of breathSinusitis/All ergyReported bypatient.Associate d Symptoms:no hemoptysis; no hematemesis; no nausea or vomiting; no sinus pain; no sore throat; no ear fullness;thick phlegm in throat;constantly clearing the throat;nasal discharge;nasal itching Onset/Timing:occurs during particular seasons of the year winter Duration:intermitte nt Severity:does not limit daily activities; no nosebleeds (epistaxis);frequen t breathing through the mouth Context:worse with seasonal allergen exposure;worse around animals;worse around pollen;worse around dust;worse around molds;worse with environmental exposure;worse when mowing grass Risk Factors:no current smoking or tobacco use; no chemotherapy; no HIV; no immunodeficiency;hi story of smoking;history of asthma;DM Alleviating factors:relief with antihistamine cetirizine Aggravating factors:worse when allergies are active; worse with excess fatigue; worse with damp weather; worse with cold weather Ariana Stark MD Attn: Accounting[address] [place], [address], [facility] 12/04/2020 18:22:46
--- OUTSIDE RECORDS SUMMARY | 2025-04-19 15:09 | XMS_ITS | Clinical Summary ---
Author Organization [facility] Facility Address [address] [place] [address] Care Team Providers Care Telehealth Case Manager Name Role Phone Igor Robertson APN Primary Care Provider [phone] Medications tiZANidine (ZANAFLEX) 4 MG tablet tizanidine 4 mg tablet TAKE 1 TO 2 TABLETS BY MOUTH THREE TIMES DAILY NEEDED Active naproxen (NAPROSYN) 500 MG tablet Take 1 tablet by mouth if needed Active traMADol (ULTRAM) 50 MG tablet Take 50 mg by mouth every 6 (six) hours if needed Active HYDROcodone-jim taminophen (VICODIN) 10-300 MG per tablet Take 1 tablet by mouth every 6 (six) hours if needed Active ergocalciferol 1.25 MG (27464 UT) capsule Take 1 capsule (50,000 Units total) by mouth 1 (one) time per week 12 capsule 1 2 Active irbesartan (AVAPRO) 150 MG tablet Take 1 tablet (150 mg total) by mouth 1 (one) time each day 90 tablet 1 4 Active Empagliflozin (Jardiance) 10 MG tablet Take 10 mg by mouth 1 (one) time each day in the morning 30 tablet 5 4 Active Encounters Date Type Department Care Team Description 01/28/2025 Office Communication [facility], [address] [phone] Chris Turner DO from Last 3 Months Social History Tobacco Use Types Packs/Day Years [...] Sign Reading Time Taken Comments Blood Pressure 120/70 09/21/2024 12:36 PM INFORMATION ASSISTANT Pulse 72 09/21/2024 12:36 PM INFORMATION ASSISTANT Temperature 36.1 C (97 F) 09/21/2024 12:36 PM INFORMATION ASSISTANT Respiratory Rate 18 09/21/2024 12:36 PM INFORMATION ASSISTANT Oxygen Saturation 99% 09/21/2024 12:36 PM INFORMATION ASSISTANT Inhaled Oxygen Concentration - - Weight 130 kg (287 lb) 09/21/2024 12:36 PM INFORMATION ASSISTANT Height 172.7 cm (5' 8) 01/08/2023 1:59 PM INFORMATION ASSISTANT Body Mass Index 43.64 01/08/2023 1:59 PM INFORMATION ASSISTANT Plan of Treatment Upcoming Encounters Date Type Department Care Team (Late st Contact Info) Description 09/27/2025 12:30 PM INFORMATION ASSISTANT Office Visit [facility], [facility] [address] [facility] [address] [place] [address] Chris Turner DO [address] [facility] [place] [address] Health Maintenance Due Date Last Done Comments Hepatitis B Vaccine (1 of 3 - 19+ 3-dose series) 1995 Pneumococcal Vaccine: Peds ( 0 to 5 Years) and At-Risk Patients (6 to 49 Years) (2 of 2 - PCV) 01/28/2015 01/28/2014 Diabetes: Ophthalmology Exam 04/12/2021 Diabetes: Pedal Pulse Checked 04/12/2021 Diabetes: Sensory Foot Exam 04/12/2021 Diabetes: Visual Foot Exam 04/12/2021 Diabetes: Hemoglobin A1C 04/29/2025 025, 09/20/2024, 09/13/2024, Additional history exists Influenza Vaccine (Season Ended) 2025 09/08/2023, 11/02/2022, 07/27/2021, Additional history exists Procedures Procedure Name Priority Date/Time Associated Diagnosis Comments HEMOGLOBIN A1C Routine 09/20/2024 8:23 AM INFORMATION ASSISTANT from Last 3 Months or Most Recently Relevant to Health Maintenance Results * Hemoglobin A1c (09/20/2024 8:23 AM INFORMATION ASSISTANT) Hemoglobin A1C 5.1 <5.7 % of total Hgb See order comments Comment: For the purpose of screening for the presence of diabetes: <5.7% Consistent with the absence of diabetes 5.7-6.4% Consistent with increased risk for diabetes (prediabetes) > or =6.5% Consistent with diabetes This assay result is consistent with a decreased risk of diabetes. Currently, no consensus exists regarding use of hemoglobin A1c for diagnosis of diabetes in children. According to [place] Diabetes Association (ADA) guidelines, hemoglobin A1c <7.0% represents optimal control in non- diabetic patients. Different metrics may apply to specific patient populations. Standards of Medical Care in Diabetes(ADA). 09/20/2024 8:2 3 AM INFORMATION ASSISTANT 09/20/2024 8:26 AM INFORMATION ASSISTANT Narrative [facility] - 09/21/2024 4:01 AM INFORMATION ASSISTANT INSURANCE ON PHONE FASTING:NO FASTING: NO Resulting Agency Comment Performing Organization Information: Site ID: SL Name: [facility] Address: [address] [id number] Director: Philipp Bueno Chris Turner DO LAB BLOOD ORDERABLES Final R esult [facility] See order comments [place] [address] from Last 3 Months or Most Recently Relevant to Health Maintenance Insurance [facility] Care Teams Telehealth Case Manager Relationship Specialty Start Date End Date Igor Robertosn APN [address] [address] PCP - General Nurse Practitioner 08/30/21
--- OUTSIDE RECORDS SUMMARY | 2025-04-19 15:09 | XMS_ITS | Encounter Summary ---
Author Organization [facility] , [facility] Address [address] [facility] [place] [address] Phone Care Team Providers Care Food Assembler Commissary Kitchen Name Role Phone MarceloIgor talavera Tucker RAMIREZ Primary Care Provider [phone] Reason for Visit * Reason Comments Med Refill Encounter Details Date Type Department Care Team (Late st Contact Info) Description 05/08/2021 Refill [facility], [address] [place] [address] Chris Turner DO [address] [facility] 1 [place] [address] Social History Tobacco Use Types [...] (Late Contact Info) Description 09/27/2025 12:30 PM SETTER OUT Office Visit [facility], [facility] [address] [facility] 15 [place] [address] Chris Turner DO [address] [facility] 1 [place] [address] documented as of this encounter Visit Diagnoses Not on filedocumented in this encounter Care Teams Food Assembler Commissary Kitchen Relationship Specialty Start Date End Date Igor Robertson APN [address] [place] [phone] PCP - General Nurse Practitioner 08/30/21 documented as of this encounter
[2025-04-19 15:19] VITALS: BP 128/89; PULSE 87; RESP 16; TEMP 36.2; O2SAT 100
--- OUTSIDE RECORDS SUMMARY | 2025-04-19 15:49 | XMS_ITS | Encounter Summary ---
Author Organization [facility] Address [address] [place] [address] Phone Care Team Providers Care Hhas Name Role Phone Igor Robertson APRN, CNP Primary Care Pr ovider Misael Saleem MD Unavailable Giovani Handy III, MD, Courtney Unavailable [phone] Reason for Visit * Reason Comments Medication Refill Encounter Details Date Type Department Care Team (Late st Contact Info) Description 09/05/2022 [facility]ill [facility] [address]2 [place] [phone] Igor Robertson APRN, NELIA #[address] [address] Medication Refill Social History Tobacco Use Types [...] on file Legal Sex Male 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 Gender Identity Not on file Sexual Orientation [...] 07/08/22 Office Visit Igor Robertson APRN, NELIA [facility] 05/28/22 Office Visit Igor Robertson APRN, NELIA [facility] 05/13/22 Procedure Visit [facility] 05/13/22 Office Visit Igor Robertson APRN, N[facility] 05/02/22 Office Visit Igor Robertson APRN, N[facility] 03/04/22 Office Visit Igor Robertson APRN, NELIA [facility] 01/14/22 Office Visit Igor Robertson APRN, NELIA [facility] 12/05/21 Office Visit Igor Robertson APRN, BLAST HOLE DRILLER [facility] Showing recent visits within past 365 days and meeting all other requirements Future Appointments Date Type Provider Dept 10/21/22 Appointment Igor Robertson APRN, BLAST HOLE DRILLER [facility] Showing future appointments within next [...] 05/02/2025 1:00 PM CDT Outpatient Clinic Visit [facility] 1 [place] [address] Lang Barker PSYD [place] Discharge Disposition: Discharged to home or Selfcare 05/30/2025 10:00 AM CDT Office Visit [facility] - [facility] [address]2 [place] [address] Igor Robertson APRN, BLAST HOLE DRILLER #[address] [address] documented as of this encounter Visit Diagnoses Diagnosis Chronic right-sided low back pain with right-sided sciatica DDD (degenerative disc disease), lumbar Degeneration of lumbar or lumbosacral intervertebral disc documented in this encounter Additional Health Concerns Infection Onset Date Last Indicated Resolved Time COVID - 19 10/10/2023 10/10/2023 10/20/2023 12:1 6 AM TRACTOR CRANE ENGINEER documented as of this encounter Care Teams Hhas Relationship Specialty Start Date End Date Igor Robertson APRN, BLAST HOLE DRILLER #[address] [address] PCP - General Advanced Practice Nurse 07/27/21 Misael Saleem MD #[address] [facility] [place] [address] [address] Consulting Physician Cardiovascular Disease - Cardiology 12/26/22 01/05/25 Afshan Handy III, MD #[address] [place] [address] Consulting Physician Urology 01/06/23 documented as of this encounter
--- OUTSIDE RECORDS SUMMARY | 2025-04-19 15:49 | XMS_ITS | Clinical Summary ---
Author Organization [facility] Facility Address [address] [place] [address] Care Team Providers Care Csr Retail Name Role Phone Igor Robertson APN Primary Care Provider [phone] Medications tiZANidine (ZANAFLEX) 4 MG tablet tizanidine [...] hours if needed Active ergocalciferol 1.25 MG (11875 UT) capsule Take 1 capsule (50,000 Units [...] Department Care Team Description 01/28/2025 Office Communication [facility], [address] [phone] Chris Turner DO from Last 3 Months [...] Comments Blood Pressure 120/70 09/21/2024 12:36 PM DRILLING CONTRACTOR Pulse 72 09/21/2024 12:36 PM DRILLING CONTRACTOR Temperature 36.1 C (97 F) 09/21/2024 12:36 PM DRILLING CONTRACTOR Respiratory Rate 18 09/21/2024 12:36 PM DRILLING CONTRACTOR Oxygen Saturation 99% 09/21/2024 12:36 PM DRILLING CONTRACTOR Inhaled Oxygen Concentration - - Weight 130 kg (287 lb) 09/21/2024 12:36 PM DRILLING CONTRACTOR Height 172.7 cm (5' 8) 01/08/2023 1:59 PM DRILLING CONTRACTOR Body Mass Index 43.64 01/08/2023 1:59 PM DRILLING CONTRACTOR Plan of Treatment Upcoming Encounters Date Type Department Care Team (Late st Contact Info) Description 09/27/2025 12:30 PM DRILLING CONTRACTOR Office Visit [facility], [facility] [address] [facility] [address] [place] [address] Chris Turner DO [address] [facility] [address] [place] [address] Health Maintenance Due Date Last [...] Comments HEMOGLOBIN A1C Routine 09/20/2024 8:23 AM DRILLING CONTRACTOR from Last 3 Months or Most Recently Relevant to Health Maintenance Results * Hemoglobin A1c (09/20/2024 8:23 AM DRILLING CONTRACTOR) Hemoglobin A1C 5.1 <5.7 % of total [...] diagnosis of diabetes in children. According to [place] Diabetes Association (ADA) guidelines, hemoglobin A1c <7.0% represents optimal control in non- diabetic patients. Different metrics may apply to specific patient populations. Standards of Medical Care in Diabetes(ADA). 09/20/2024 8:2 3 AM DRILLING CONTRACTOR 09/20/2024 8:26 AM DRILLING CONTRACTOR Narrative [facility] - 09/21/2024 4:01 AM DRILLING CONTRACTOR INSURANCE ON PHONE FASTING:NO FASTING: NO Resulting Agency Comment Performing Organization Information: Site ID: SL Name: [facility] Address: [address] [phone] Director: Philipp Bueno Chris Turner DO LAB BLOOD ORDERABLES Final R esult [facility] See order comments [place] [address] from Last 3 Months or Most Recently Relevant to Health Maintenance Insurance [facility] Care Teams Csr Retail Relationship Specialty Start Date End Date Igor Robertson APN [address] [address] PCP - General Nurse Practitioner 08/30/21
--- OUTSIDE RECORDS SUMMARY | 2025-04-19 15:49 | XMS_ITS | Encounter Summary ---
Author Organization [facility] , [facility] Address [address] [facility] [place] [address] Phone Care Team Providers Care Chronometer Assembler And Adjuster Name Role Phone MarceloIgor talavera Tucker RAMIREZ Primary Care Provider [phone] Reason for Visit * Reason Comments Med Refill Encounter Details Date Type Department Care Team (Late st Contact Info) Description 07/29/2021 Refill [facility], [address] [place] [address] Chris Turner DO [address] [facility] 1 [place] [address] Social History Tobacco Use Types [...] (Late Contact Info) Description 09/27/2025 12:30 PM CONSTRUCTION SPECIALIST Office Visit [facility], [facility] [address] [facility] [address] [place] [address] Chris Turner DO [address] [facility] 1 [place] [address] documented as of this encounter Visit Diagnoses Not on filedocumented in this encounter Care Teams Chronometer Assembler And Adjuster Relationship Specialty Start Date End Date Igor Robertson APN [address] [place] [phone] PCP - General Nurse Practitioner 08/30/21 documented as of this encounter
--- OUTSIDE RECORDS SUMMARY | 2025-04-19 15:49 | XMS_ITS | Encounter Summary ---
Author Organization [facility] , [facility] Address [address] [place] [address] Phone Care Team Providers Care Dowel Machine Operator Name Role Phone MarceloIgor talavera Tucker RAMIREZ Primary Care Provider [phone] Reason for Visit * Reason Comments Med Refill Encounter Details Date Type Department Care Team (Late st Contact Info) Description 01/18/2023 Refill [place], [facility] [address] [place] [address] Chris Turner DO [address] [address] Social History Tobacco Use Types [...] Coronavirus/COVID-19? No / Unsure 01/08/2023 1:10 PM PLANT RELIABILITY ENGINEER documented as of this encounter Miscellaneous Notes * Telephone Encounter - Lay Morataya CMA - 01/20/2023 8:22 AM CST duplicate documented in this encounter Plan of Treatment Upcoming Encounters Date Type Department Care Team (Late st Contact Info) Description 09/27/2025 12:30 PM PLANT RELIABILITY ENGINEER Office Visit [facility], [facility] [address] [facility] 15 [place] [address] Chris Turner DO [address] [facility] 1 [place] [address] documented as of this encounter Visit Diagnoses Not on filedocumented in this encounter Care Teams Dowel Machine Operator Relationship Specialty Start Date End Date Igor Robertson SUPERVISOR CONTINGENTS 2 [facility] [address] [place] [address] PCP - General Nurse Practitioner 08/30/21 documented as of this encounter
--- OUTSIDE RECORDS SUMMARY | 2025-04-19 15:49 | XMS_ITS | Encounter Summary ---
Author Organization [facility] Address [address] [place] [address] Phone Care Team Providers Care Underground Mining Section Foreman Name Role Phone Igor Robertson APRN, CNP Primary Care Pr ovider Misael Saleem MD Unavailable Giovani Handy III, MD, Courtney Unavailable [phone] Reason for Visit * Reason Comments Medication Refill Encounter Details Date Type Department Care Team (Late st Contact Info) Description 07/18/2022 Refill [facility] [address]2 [place] [phone] Igor Robertson APRN, NELIA #[address] [address] Medication Refill Social History Tobacco Use Types [...] on file Legal Sex Male 2:13 PM AUTOMOTIVE SERVICE CONSULTANT Gender Identity Not on file Sexual Orientation [...] Office Visit Igor Robertson APRN, N[facility] 05/28/22 Office Visit Igor Robertson APRN, NEL[facility] 05/13/22 Procedure Visit [facility] 05/13/22 Office Visit Igor Robertson APRN, NELIA [facility] 05/02/22 Office Visit Igor Robertson APRN, NELIA [facility] 03/04/22 Office Visit Igor Robertson APRN, FUR FEEDER [facility] 01/14/22 Office Visit Igor Robertson APRN, FUR FEEDER [facility] 12/05/21 Office Visit Igor Robertson APRN, FUR FEEDER [facility] 07/27/21 Office Visit Igor Robertson APRN, FUR FEEDER [facility] Showing recent visits within past [...] 05/02/2025 1:00 PM CDT [facility] 1 [place] [address] Lang Barker PSYD [place] Discharge Disposition: Discharged to home or Selfcare 05/30/2025 10:00 AM CDT Office Visit [facility] - Family Medicine [facility] #2 [place] [address] Igor Robertson APRN, NELIA #[address] [address] documented as of this encounter Visit Diagnoses Diagnosis Chronic right-sided low back pain with right-sided sciatica DDD (degenerative disc disease), lumbar Degeneration of lumbar or lumbosacral intervertebral disc documented in this encounter Additional Health Concerns Infection Onset Date Last Indicated Resolved Time COVID - 19 10/10/2023 10/10/2023 10/20/2023 12:1 6 AM AUTOMOTIVE SERVICE CONSULTANT documented as of this encounter Care Teams Underground Mining Section Foreman Relationship Specialty Start Date End Date Igor Robertson APRN, NELIA #[address] [address] PCP - General Advanced Practice Nurse 07/27/21 Misael Saleem MD #[address] [address] [address] Consulting Physician Cardiovascular Disease - Cardiology 12/26/22 01/05/25 Afshan Handy III, MD #[address] [place] [address] Consulting Physician Urology 01/06/23 documented as of this encounter
--- OUTSIDE RECORDS SUMMARY | 2025-04-19 15:49 | XMS_ITS | Clinical Summary ---
Author Organization [facility] Address [address] [place] [address] Phone Care Team Providers Care Fire Control System Installer Name Role Phone Igor Robertson APRN, CAP BLOCKER Primary Care Pr ovider Rozina CHASE MD, Afshan Unavailable Allergies Active Allergy Reactions Criticality Noted Date [...] 04/06/2025 1:00 PM CDT Outpatient Clinic Visit [facility] 1 [place] [address] Lang Barker, CHANDANA Unspecified neurodevelopmental disorder (Primary Dx) Discharge Disposition: Discharged to home or Selfcare 04/05/2025 Travel 03/21/2025 2:00 PM CDT Outpatient Clinic Visit [facility] 1 [place] [address] Igor Robertson APRN, Lang Cosme, CHANDANA Unspecified neurodevelopmental disorder (Primary Dx) Discharge Disposition: Discharged to home or Selfcare 03/21/2025 Travel 03/15/2025 MyChart RX Renewal [facility] [place] [address] Igor Robertson APRN, NELIA Medication Renewal Declined 02/09/2025 Travel 02/08/2025 MyChart RX Renewal [facility] [place] [address] Igor Robertson APRN, CNP Medication Renewal Reviewed 01/28/2025 Results Follow-Up [facility] [place] [address] Igor Robertson APRN, CNP CMP (COMPREHENSIVE METABOLIC PANEL), HEMOGLOBIN A1C W/ ESTIMATED GLUCOSE, UR MICROALBUMIN/CREATININE RATIO RANDOM, Additional followed-up results: 2 01/27/2025 8:45 AM CDT Office Visit [facility] [place] [address] Igor Robertson APRN, NELIA Primary hypertension (Primary Dx); Type 2 diabetes mellitus without complication, without long-term current use of insulin (HCC); Primary osteoarthritis involving multiple joints; Attention or concentration deficit Discharge Disposition: Discharged to home or Selfcare 01/27/2025 Travel from Last 3 Months Immunizations Immunization Administration Dates Next Due Covid-19, Mrna, Lnp-s, Pf, 3 0 Mcg/0.3 Ml Dose ([employer]) 02/21/2021,01/24/2021 Influenza Vaccine 09/05/2011,10/22/2010 Influenza Vaccine, Quadrivalent, PF 08/18,11/02/2022,07/27/2021,10/13 Influenza, Injectable, Quadrivalent 11/06/2020,1 Pneumococcal Vaccine Adult - 23 Valent 4 Pneumococcal conjugate PCV20 , polysaccharide [id number] conjugate, adjuvant, PF 05/25/2024 TDAP Vaccine 10/22/2010 [...] 1 Lawada Alive Same mother Half-Sister 2 Annei Alive Same mother Half-Sister 3 Marichuy Alive [...] drink = 0.6 oz pur e alcohol) [facility] Utilities Answer Date Recorded In the past [...] often do you attend chur ch or baptist services? More than 4 times per year 05/25/2024 Do you belong to any clubs o r organizations such as nondenominational groups, unions, fraternal or athletic groups, or [...] Total Score - Questions 1-9 0 01/15 [facility] of Occupat ional Health - Occupational Stress [...] place to sleep or slept in a nursing home (including now)? No 02/29/2024 Education Answer Date Recorded What is the highest level of school you have completed or the highest degree you have received? Associate degree: occupational, technical, or vocational program 01/11/2022 Sexually Active Control Partners Comments Not Currently None Female Sex and Gender Information Value Date Recorded Sex Assigned at Not on file Legal Sex Male 2:13 PM DERMATOLOGY SALES REPRESENTATIVE Gender Identity Not on file Sexual Orientation [...] 05/02/2025 1:00 PM CDT Outpatient Clinic Visit [facility] 1 [place] [address] Lang Barker PSYD [place] Discharge Disposition: Discharged to home or Selfcare 05/30/2025 10:00 AM CDT Office Visit [facility] - Family Medicine [facility] [address] [place] [address] Igor Robertson APRN, CAP BLOCKER #[address] [address] Health Maintenance Due Date Last Done Comments [...] - 6.0 % 01/27/2025 10:59 AM CDT [facility] Est Average Glucose 88.2 mg/dL 01/27/2025 10:59 AM CDT [facility] Blood Venipuncture / Unknown 01/27/2025 9:42 AM CDT 01/27/2025 10:25 AM CDT [facility] - 01/27/2025 10:59 AM CDT HEMOGLOBIN A1C: DIABETIC PATIENTS: WELL-CONTROLLED: 6.2 - 7.0 INTERMEDIATE WELL-CONTROLLED: 7.0 - 9.0 POORLY-CONTROLLED: >9.0 Specimens containing greater than 5% of Hemoglobin F may result in lower than expected % HbA1C results. us Igor Robertson CASINO CASHIER, CAP BLOCKER CHEMISTRY ORDERA BLES Final Result [facility] #1 [facility] [place] [address] * (ABNORMAL) CBC WITH AUTO DIFFERENTIAL (01/27/2025 9:42 AM CDT) WBC 9.70 4.00 - 12.00 10(3)/mcL 01/27/2025 10:31 AM CDT [facility] RBC 5.10 4.40 - 5.80 10(6)/[facility] 01/27/2025 10:31 AM CDT [facility] HEMOGLOBIN (HGB) 14.2 13.0 - 16.5 g/dL 01/27/2025 10:31 AM CDT [facility] HEMATOCRIT (HCT) 41.8 38.0 - 50.0 % 01/27/2025 10:31 AM CDT [facility] MCV 82.0 82.0 - 96.0 fL 01/27/2025 10:31 AM CDT [facility] MCH 27.8 26.0 - 32.0 pg 01/27/2025 10:31 AM CDT [facility] MCHC 34.0 31.0 - 36.0 g/dL 01/27/2025 10:31 AM CDT [facility] PLATELET COUNT 256 140 - 440 10(3)/[facility] 01/27/2025 10:31 AM CDT [facility] RDW 12.7 11.8 - 15.5 % 01/27/2025 10:31 AM CDT [facility] MPV 9.6 8.0 - 12.6 fL 01/27/2025 10:31 AM CDT [facility] NEUTROPHILS 62.3 40.0 - 68.0 % 01/27/2025 10:31 AM CDT [facility] LYMPHOCYTES 26.0 19.0 - 49.0 % 01/27/2025 10:31 AM CDT [facility] MONOCYTES 7.2 3.0 - 13.0 % 01/27/2025 10:31 AM CDT [facility] EOSINOPHILS 3.9 0.0 - 8.0 % 01/27/2025 10:31 AM CDT [facility] BASOPHILS 0.6 0.0 - 1.0 % 01/27/2025 10:31 AM CDT [facility] ABSOLUTE NEUTROPHILS 6.04(H) 1.40 - 5.30 10(3)/[facility] 01/27/2025 10:31 AM CDT [facility] ABSOLUTE LYMPHOCYTES 2.52 0.90 - 3.30 10(3)/[facility] 01/27/2025 10:31 AM CDT [facility] ABSOLUTE MONOCYTES 0.70 0.10 - 0.90 10(3)/[facility] 01/27/2025 10:31 AM CDT [facility] ABSOLUTE EOSINOPHIL 0.38 0.00 - 0.50 10(3)/[facility] 01/27/2025 10:31 AM CDT [facility] ABSOLUTE BASOPHILS 0.06 0.00 - 0.10 10(3)/[facility] 01/27/2025 10:31 AM CDT [facility] NRBC PER 100 WBC 0 01/28/20 10:31 AM CDT [facility] Blood Venipuncture / Unknown 01/27/2025 9:42 AM CDT 01/27/2025 10:25 AM CDT us Igor Robertson CASINO CASHIER, CAP BLOCKER HEMATOLOGY ORDER CLIFF Final Result [facility] [address]1 [place] [address] * (ABNORMAL) UR MICROALBUMIN/CREATININE RATIO RANDOM (01/27/2025 9:42 AM CDT) RAN UR MICROALBUMIN 5.80 mg/dL 01/27/2025 10:45 AM CDT [facility] Comment:No reference range h as been established. Consider Clinical Correlation. CREATININE URINE 126.7 mg/dL 01/28/20 10:45 AM CDT [facility] Comment:No reference range h as been established. Consider Clinical Correlation. ALB/CREAT RATIO 46(H) 0 - 30 mg/g CRE 01/27/2025 10:45 AM CDT [facility] Urine Non-Phlebotomy Collection / Unknown 01/27/2025 9:42 AM CDT 01/27/2025 10:28 AM CDT us Igor Robertson APRN, CNP URINE ORDERABLES Final Result [facility] [address] [place] [address] * (ABNORMAL) CMP (COMPREHENSIVE METABOLIC PANEL) (01/27/2025 9:42 AM CDT) SODIUM 141 136 - 145 mmol/L 01/27/2025 10:55 AM CDT [facility] POTASSIUM 3.9 3.5 - 5.1 mmol/L 01/27/2025 10:55 AM CDT [facility] CHLORIDE 107 98 - 107 mmol/L 01/27/2025 10:55 AM CDT [facility] CO2, VENOUS 26 22 - 30 mmol/L 01/27/2025 10:55 AM CDT [facility] ANION GAP 11.9 <18.0 mmol/L 01/27/2025 10:55 AM CDT [facility] GLUCOSE 98 70 - 99 mg/dL 01/27/2025 10:55 AM CDT [facility] BUN 9 9 - 21 mg/dL 01/27/2025 10:55 AM CDT [facility] CREATININE, BLOOD 0.86 0.70 - 1.30 mg/dL 01/27/2025 10:55 AM CDT [facility] BUN/CREATININE RATIO 10(L) 12 - 20 ratio 01/27/2025 10:55 AM CDT [facility] TOTAL PROTEIN 7.6 6.0 - 8.0 g/dL 01/27/2025 10:55 AM CDT [facility] ALBUMIN 4.2 3.5 - 5.0 g/dL 01/27/2025 10:55 AM [facility] A/G RATIO 1.2 1.0 - 2.2 01/27/2025 10:55 AM CDT [facility] CALCIUM 9.9 8.7 - 10.5 mg/dL 01/27/2025 10:55 AM [facility] T BILI 1.2 0.2 - 1.2 mg/dL 01/27/2025 10:55 AM [facility] SGOT (AST) 23 <43 U/L 01/27/2025 10:55 AM [facility] SGPT (ALT) 55 <56 U/L 01/27/2025 10:55 AM [facility] ALKALINE PHOSPHATASE 70 40 - 150 U/L 01/27/2025 10:55 AM [facility] IS THE PATIENT REQUIRED TO BE FASTING? No 01/27/2025 10:55 AM [facility] GFR, ESTIMATED >60 >=60 01/27/2025 10:55 AM [facility] Comment: Creatinine Clearance is the preferred criteria for selecting drug dose adjustments in renally impaired patients. The GFR is provided as additional pertinent clinical information. GFR is reported in mL/min/1.73 sq m. Calculation based on the Chronic Kidney Disease Epidemiology Collaboration (CKD- EPI) equation refit without adjustment for race. GFR, EST. >60 >=60 025 10:55 AM [facility] GFR, EST. NONAFRICAN >60 >=60 01/27/2025 10:55 AM [facility] Blood Venipuncture / Unknown 01/27/2025 9:42 AM CDT 01/27/2025 10:24 AM CDT Igor Robertson APRN, CNP CHEMISTRY ORDERA BLES Final Result Performing Organization Address City/[facility]/ZIP Co de Phone Number [facility] [address] [place] [address] * BILIRUBIN DIRECT (CONJUGATED) (01/27/2025 9:42 AM CDT) [facility] BILIRUBIN,DIREC T 0.5 0.0 - 0.5 mg/dL 01/27/2025 10:55 AM CDT [facility] Blood Venipuncture / Unknown 01/27/2025 9:42 AM CDT 01/27/2025 10:24 AM CDT Igor Robertson APRN, CNP CHEMISTRY ORDERA BLES Final Result Performing Organization Address [facility] de Phone Number [facility] [address] [place] [address] * (ABNORMAL) DIABETIC BILATERAL RETINAL IMAGING WITH COMPUTERIZED INTERPRETATION (05/13/2022 10:08 AMCDT) [facility] DIABETIC BILATERAL DIGITAL RETINAL IMAGING Exam quality insufficien t(A) [facility]NOST[facility] Comment: Next Steps: Refer to health professional IDx Submission ID: [id number] Results were produced by a system that [...] PROCEDURE ORDERABLES Final Result Performing Organization Address City/[facility]/ZIP Co de Phone Number EXTERNAL EKG DIGITAL DIAGNOSTICS from Last 3 Months or Most Recently Relevant to Health Maintenance Insurance [facility] Care Teams Fire Control System Installer Relationship Specialty Start Date End Date Igor Robertson APRN, CAP BLOCKER [address] [facility] [address] [address] [address] PCP - General Advanced Practice Nurse 07/27/21 Afshan Handy III, MD #[address] [place] [address] Consulting Physician Urology 01/06/23
--- OUTSIDE RECORDS SUMMARY | 2025-04-19 15:49 | XMS_ITS | Encounter Summary ---
Author Organization [facility] , [facility] Address [address] [facility] [facility] [address] [place] [address] Phone Care Team Providers Care Electric Organ Inspector And Repairer Name Role Phone MarceloIgor talavera Tucker RAMIREZ Primary Care Provider [phone] Reason for Visit * Reason Comments Med Refill Encounter Details Date Type Department Care Team (Late st Contact Info) Description 05/08/2021 Refill [facility], [address] [place] [address] Chris Turner DO [address] [facility] [address] [place] [address] Social History Tobacco Use Types [...] (Late Contact Info) Description 09/27/2025 12:30 PM GRAPHIC ART DESIGNER Office Visit [facility], [facility] [address] [facility] [address] [place] [address] Chris Turner DO [address] [facility] 1 [place] [address] documented as of this encounter Visit Diagnoses Not on filedocumented in this encounter Care Teams Electric Organ Inspector And Repairer Relationship Specialty Start Date End Date Igor Robertson APN [address] [place] [id number] PCP - General Nurse Practitioner 08/30/21 documented as of this encounter
--- OUTSIDE RECORDS SUMMARY | 2025-04-19 15:49 | XMS_ITS | Clinical Summary ---
Author Organization [facility] [employer] Address [address] [place] [address] Care Team Providers Care Observer Gravity Prospecting Name Role Phone Igor Robertson APRN-TOMATO PULPER OPERATOR Primary Care Pro vider Source Comments [facility],non-owned Affiliates and Associated Physician Practices is amultiple site organization consisting of ambulatory clinics and hospital sitesin [place], [place], [place] and [place]. This disclosure is being madepursuant to the Care Everywhere program and may not contain all information available regarding this patient. Last updated 18.[facility] [employer] Allergies Active Allergy Reactions Criticality Noted Date [...] daily 30 capsule 3 Active HYDROcodone-ac etaminophen ([place]) 10-325 MG tablet Take 1 (one) tablet [...] and heating? Not hard at all 01/13/2023 [facility] of Occupat ional Health - Occupational Stress [...] place to sleep or slept in a skilled nursing (including now)? No 01/13/2023 Sex and Gender Information Value Date Recorded Sex Assigned at Male 12/04/2022 2:05 PM WILDLIFE OFFICER Legal Sex Male 5:32 AM WILDLIFE OFFICER Gender Identity Male 12/04/2022 2:05 PM WILDLIFE OFFICER Sexual Orientation Straight 12/04/2022 2 :05 PM WILDLIFE OFFICER Last Filed Vital Signs Vital Sign Reading [...] Description 05/17/2025 1:00 PM CDT Office Visit [facility] Weight Management Services [address], [address] [place] [address] Zena Lovett, TAPE RULES PRINTING MACHINE OPERATOR-TOMATO PULPER OPERATOR [address] [facility] [address] [place] [address] Health Maintenance Due Date Last [...] Resulting Agency Comment Lab Testing performed at: [facility] [id number] Zena Lovett TAPE RULES PRINTING MACHINE OPERATOR-TOMATO PULPER OPERATOR LAB - CHEMISTRY O RDERABLES Final Result Performing Organization Address City/State/[facility] Co de Phone Number [facility] ACCOUNT BILL [address] [place] [address] from Last 3 Months or Most Recently Relevant to Health Maintenance Insurance [facility] [employer] Advance Directives * Full Code (Latest Code Status on File) Date Activated Date Inactivated Comments 01/13/2023 10:02 AM 01/15/2023 12:51 PM Care Teams Observer Gravity Prospecting Relationship Specialty Start Date End Date Igor Robertson APRN-NELIA [address] [address] PCP - General Nurse Practitioner 01/01/23
--- OUTSIDE RECORDS SUMMARY | 2025-04-19 15:49 | XMS_ITS | Encounter Summary ---
Author Organization [facility] Address [address] 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 Gender Identity Not on file Sexual Orientation [...] 05/13/22 Procedure Visit [facility] 05/13/22 Office Visit Igor Robertson APRN, NELIA [facility] 05/02/22 Office Visit Igor Robertson APRN, NELIA [facility] 03/04/22 Office Visit Igor Robertson APRN, LBD TEACHER [facility] Showing recent visits within past 182 days and meeting all other requirements Future Appointments Date Type Provider Dept 10/21/22 Appointment Igor Robertson APRN, LBD TEACHER [facility] Showing future appointments within next [...] 05/13/22 Procedure Visit [facility] 05/13/22 Office Visit Igor Robertson APRN, NELIA [...] 05/02/2025 1:00 PM CDT Outpatient Clinic Visit [facility] 1 [place] [address] Lang Barker PSYD [place] Discharge Disposition: Discharged to home or Selfcare 05/30/2025 10:00 AM CDT Office Visit [facility] - Family Medicine - [place] [address] [place] [address] Igor Robertson APRN, NELIA #[address] [address] documented as of this encounter Visit Diagnoses Diagnosis Primary insomnia Persistent disorder of initiating or maintaining sleep documented in this encounter Additional Health Concerns Infection Onset Date Last Indicated Resolved Time COVID - 19 10/10/2023 10/10/2023 10/20/2023 12:1 6 AM CREATIVE GURU documented as of this encounter Care Teams Show Girl Relationship Specialty Start Date End Date Igor Robertson APRN, LBD TEACHER #[address] [address] PCP - General Advanced Practice Nurse 07/27/21 Misael Saleem MD #[address] [address] Consulting Physician Cardiovascular Disease - Cardiology 12/26/22 01/05/25 Afshan Handy III, MD #2 [place] [address] Consulting Physician Urology 01/06/23 documented as of this encounter
--- NOTE | 2025-04-19 16:04 | ED_ITS ---
HPI - General Adult General Chief complaint: Extremity Injury, Lower Stated complaint: L FOOT/ANKLE PAIN Time Seen by Provider: 04/19/25 15:36 History of Present Illness HPI narrative: Patient with history of arthritis, requiring joint injections in the past, presents here with pain and swelling to his left foot for last few days, now having pain to his bilateral knees. He just had joint injection in his knee 1 month ago with his orthopedic doctor. No recent injury Related Data Home Medications ?Medication ?Instructions ?Recorded ?Confirmed ?Last Taken ?Type baclofen 10 mg tablet 10 mg PO QID 09/23/19 Unknown History blood sugar diagnostic #10 ea 09/23/19 Unknown History blood sugar diagnostic (OneTouch #10 ea 09/23/19 Unknown History Ultra Blue Test Strip) lancets 33 gauge (OneTouch Delica #100 ea 09/23/19 Unknown History Lancets) metformin 1,000 mg tablet 1,000 mg PO DAILY 09/23/19 Unknown History nitroglycerin 0.4 mg sublingual 0.4 mg sublingual Q5M PRN Pain 09/23/19 Unknown History tablet allopurinol 300 mg tablet 300 mg PO DAILY 12/08/19 Unknown History amlodipine 10 mg tablet 10 mg PO DAILY 12/08/19 Unknown History chlorthalidone 50 mg tablet 50 mg PO DAILY 12/08/19 Unknown History methylphenidate HCl 20 mg tablet 20 mg PO BID 12/08/19 Unknown History sitagliptin phosphate 100 mg 100 mg PO DAILY 12/08/19 Unknown History tablet (Januvia) albuterol sulfate 90 mcg/actuation inhalation 12/21/19 Unknown History aerosol inhaler Allergies Allergy/AdvReac Type Severity Reaction Status Date / Time Penicillins Allergy Severe Anaphylactic Verified 04/19/25 15:07 Shock lisinopril Allergy Unknown Cough Verified 04/19/25 15:07 NSAIDS (Non-Steroidal AdvReac Other Verified 04/19/25 15:07 Anti-Inflamma Review of Systems Review of Systems: All systems reviewed & are unremarkable except as noted in HPI and below PMFSH Past Medical History Medical History Osteoarthritis of both knees Sleep apnea Gastric reflux Essential hypertension Carpal tunnel syndrome Obesity Hyperglycinemia Diabetes mellitus Surgical History Surgical History No pertinent past surgical history Family History Family History Mother Diabetes mellitus Hypertension Father Hypertension Family history of cardiovascular disease Social History Social History Smoking status: Current every day smoker Alcohol intake: current Gender identity (if verbalized by the patient): Male Exam Narrative: EXAMINATION OF ORGAN SYSTEMS/BODY AREAS: Constitutional: Vital signs per nursing GENERAL:[No acute distress, non-toxic appearing.] HEAD: Normal with no signs of head trauma. EYES: EOMI, conjunctiva normal ENT: Hearing grossly intact LUNGS: Nonlabored breathing. HEART: [Regular rate and rhythm] ABD: [Soft], [nontender to palpation] EXT: Some tenderness to palpation to bilateral knees, ankles with some slight swelling. Negative Homans sign. No lower leg swelling. Painless passive range of motion to extremities. SKIN: No redness or overlying skin changes NEURO: [Alert and oriented x 3. No gross focal sensory or strength deficits.] PSYCH: Normal affect Course Vital Signs Vital signs: Vital Signs Temperature 97.1 F L 04/19/25 15:19 Pulse Rate 87 04/19/25 15:19 Respiratory Rate 16 04/19/25 15:19 Blood Pressure 128/89 04/19/25 15:19 Pulse Oximetry 100 04/19/25 15:19 Temperature 97.1 F L 04/19/25 15:19 Pulse Rate 87 04/19/25 15:19 Respiratory Rate 16 04/19/25 15:19 Blood Pressure 128/89 04/19/25 15:19 Pulse Oximetry 100 04/19/25 15:19 Medical Decision Making [facility] Narrative Medical decision making narrative: Patient with history of arthritis presents here with swelling and pain to his left foot, bilateral knees, he has had bad arthritis in the past requiring steroid injection and he is currently in physical therapy for this. No signs of septic joint without overlying redness or tenderness to passive range of motion. No lower extremity edema or signs of DVT. X-ray confirms signs of arthritis. Discussed with patient, will give him a dose of IM Toradol here and start him on prednisone with close follow-up to his orthopedic surgeon. Patient agreeable to this plan. Vital Signs Vital Signs: Vital Signs Temperature 97.1 F L 04/19/25 15:19 Pulse Rate 87 04/19/25 15:19 Respiratory Rate 16 04/19/25 15:19 Blood Pressure 128/89 04/19/25 15:19 Pulse Oximetry 100 04/19/25 15:19 Temperature 97.1 F L 04/19/25 15:19 Pulse Rate 87 04/19/25 15:19 Respiratory Rate 16 04/19/25 15:19 Blood Pressure 128/89 04/19/25 15:19 Pulse Oximetry 100 04/19/25 15:19 Discharge Plan Discharge Clinical Impression: Arthritis of foot Osteoarthritis of both knees Qualifiers: Osteoarthritis type: primary Qualified Code(s): M17.0 - Bilateral primary osteoarthritis of knee Patient Disposition: Home Condition: Stable Instructions: Osteoarthritis (ED) Additional Instructions: Please follow-up with your orthopedic surgeon. Try taking the steroids as presc ribed, and you can always return to the emergency room for any further issues. Patient Language: Tajik Prescriptions: New prednisone 20 mg tablet 40 mg PO DAILY 4 Days Qty: 8 0RF No Action albuterol sulfate 90 mcg/actuation HFA aerosol inhaler INHALATION methocarbamol 750 mg tablet 750 mg PO QID PRN (Reason: muscle spasm) 7 Days Qty: 28 0RF ketorolac 10 mg tablet 10 mg PO Q6H PRN (Reason: pain) 5 Days Qty: 20 0RF tramadol 50 mg tablet 50 mg PO Q6H PRN (Reason: pain) Qty: 8 0RF baclofen 10 mg tablet 10 mg PO QID metformin 1,000 mg tablet 1,000 mg PO DAILY nitroglycerin 0.4 mg tablet, sublingual 0.4 mg SUBLINGUAL Q5M PRN (Reason: Pain) (DME) blood sugar diagnostic Strip See Rx Instructions .ROUTE .MEDSUPPLY Qty: 10 Rx Instructions: As directed (DME) lancets [OneTouch Delica Lancets] 33 gauge misc See Rx Instructions .ROUTE .MEDSUPPLY Qty: 100 Rx Instructions: As directed (DME) OneTouch Ultra Blue Test Strip Strip See Rx Instructions .ROUTE .MEDSUPPLY Qty: 10 Rx Instructions: As directed cyclobenzaprine 10 mg tablet 10 mg PO TID PRN (Reason: muscle spasm) Qty: 30 0RF tamsulosin [Flomax] 0.4 mg capsule 0.4 mg PO DAILY Qty: 14 0RF hydrocodone-acetaminophen 5-325 mg tablet 1 tablet PO Q12H PRN (Reason: pain) Qty: 10 0RF cyclobenzaprine 10 mg tablet 10 mg PO BID PRN (Reason: muscle spasm) Qty: 14 0RF famotidine [Pepcid] 20 mg tablet 20 mg PO DAILY Qty: 20 0RF methylphenidate HCl 20 mg Tablet 20 mg PO BID chlorthalidone 50 mg Tablet 50 mg PO DAILY amlodipine 10 mg Tablet 10 mg PO DAILY allopurinol 300 mg Tablet 300 mg PO DAILY Januvia 100 mg Tablet 100 mg PO DAILY methocarbamol [Robaxin-750] 750 mg tablet 750 mg PO Q4H Qty: 30 0RF naproxen 500 mg tablet 500 mg PO BID Qty: 30 0RF cyclobenzaprine 10 mg tablet 10 mg PO TID PRN (Reason: muscle spasm) Qty: 21 0RF diclofenac potassium 50 mg tablet 50 mg PO TID PRN (Reason: pain) Qty: 30 0RF oseltamivir 75 mg capsule 75 mg PO Q12H 5 Days Qty: 10 0RF Follow-up/Referrals: PHYSICIAN NOT ON STAFF,NONSTAFF [Primary Care Provider] -
[2025-04-19] MEDS: predniSONE 20 MG TABLET 40 MG PO (16:08)
[2025-04-19] MEDS: KETOROLAC 30 MG/ML VIAL (*BKC) 15 MG IM (16:08)
== END 2025-04-19 16:51 | disposition home or self-care (01) ==
PROVIDERS: Emergency Provider Emergency Medicine
DX: M19.072 Primary osteoarthritis, left ankle and foot (principal); M17.0 Bilateral primary osteoarthritis of knee; M79.672 Pain in left foot; F17.200 Nicotine dependence, unspecified, uncomplicated
CPT/HCPCS: 73630; 96372; 99283; J1885; J7512

== ENCOUNTER 2025-06-14 03:58 | Emergency (ER) | payer OTHER, SELFPAY ==
--- NOTE | ~2025-06-14 | XR_ITS ---
EXAMINATION: XR chest 2V 06/14/2025 04:30 INDICATION: Chest pain left-sided. PROCEDURE: 2 view chest COMPARISON: Comparison to multiple prior studies sequentially, with oldest reviewed study dated 05/28. FINDINGS: The lungs are clear. The cardiomediastinal silhouette is within normal limits. There are no pleural effusions. There is no pneumothorax suspected. IMPRESSION: 1: NO ACUTE CARDIOPULMONARY DISEASE. Reviewed, dictated and finalized at location B.
--- NOTE | 2025-06-14 03:59 | ECG_ITS ---
Test Date: 2025-06-14 04:05:16 Measurements Intervals Hubbell Rate: 90 P: 56 ND: 138 QRS: 31 QRSD: 87 T: 41 QT: 352 QTc: 432 Interpretive Statements SINUS RHYTHM Electronically Signed On 06-14-2025 17:23:05 CDT by Edison Gaitan D.O
[2025-06-14 04:00] VITALS: BP 127/90; PULSE 94; RESP 17; TEMP 36.8; O2SAT 100
--- OUTSIDE RECORDS SUMMARY | 2025-06-14 04:00 | XMS_ITS | Encounter Summary ---
Author Organization [facility] , [facility] Address [address] [place] [address] Phone Care Team Providers Care Coach Cleaner Name Role Phone MarceloIgor talavera Tucker RAMIREZ Primary Care Provider [phone] Reason for Visit * Reason Comments Med Refill Encounter Details Date Type Department Care Team (Late st Contact Info) Description 07/29/2021 Refill [facility], [address] [place] [address] Chris Turner DO [address] [facility] [address] [place] [address] Social History Tobacco Use Types [...] (Late Contact Info) Description 09/27/2025 12:30 PM ETHNOGRAPHIC MATERIALS CONSERVATOR Office Visit [facility], [facility] [address] [place] [address] Chris Turner DO [address] [facility] [address] [place] [address] documented as of this encounter Visit Diagnoses Not on filedocumented in this encounter Care Teams Coach Cleaner Relationship Specialty Start Date End Date Igor Robertson APN [address] [place] [id number] PCP - General Nurse Practitioner 08/30/21 documented as of this encounter
--- OUTSIDE RECORDS SUMMARY | 2025-06-14 04:00 | XMS_ITS | Encounter Summary ---
Author Organization [facility] , [facility] Address [address] [place] [address] Phone Care Team Providers Care Control Systems Designer Name Role Phone MarceloIgor talavera Tucker RAMIREZ Primary Care Provider [phone] Reason for Visit * Reason Comments Med Refill Encounter Details Date Type Department Care Team (Late st Contact Info) Description 05/08/2021 Refill [facility], [address] [place] [address] Chris Turner DO [address] [facility] [address] [place] [address] Social History Tobacco Use Types [...] (Late Contact Info) Description 09/27/2025 12:30 PM 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
--- OUTSIDE RECORDS SUMMARY | 2025-06-14 04:00 | XMS_ITS | Clinical Summary ---
Author Organization [facility] Address [address] [place] [address] Phone Care Team Providers Care Complex Case Manager Name Role Phone Igor Robertson APRN, GRISTMILLER Primary Care Pr ovider Rozina CHASE MD, Afshan Unavailable Allergies Active Allergy Reactions Criticality Noted Date Comments Lisinopril Unknown 07/27/2021 Nsaids Other (see Comments) 10/10/2023 Penicillins Swelling 10/13/2018 Medications Blood Pressure Kit Use to check blood pressure daily. 1 Each 02/12/20 23 Active azelastine (ASTELIN) 0.1 % Solution 2 Sprays by Nasal route 2 times daily. Use in each nostril as directed 30 mL 5 06/28/20 24 Active Jardiance 10 MG Tablet Take 10 mg by mouth. 09/21/20 24 Active tiZANidine (ZANAFLEX) 2 MG Tablet TAKE 1 TO 2 TABLETS BY MOUTH AT BEDTIME NEEDED FOR PAIN 90 Tablet 2 10/19/20 24 Active irbesartan (AVAPRO) 300 MG TabletIndications :Microalbuminuria due to type 2 diabetes mellitus (HCC) Take 1 Tablet by mouth daily. 90 Tablet 3 01/29/20 25 Active Tirzepatide (Mounjaro) 10 MG/0.5ML Solution Auto-injectorIndi cations:Type 2 diabetes mellitus without complication, without long-term current use of insulin 10 mg by Subcutaneous route once a week. 2 mL 5 02/10/20 25 Active HYDROcodone-aceta minophen (NORCO) 7.5-325 MG TabletIndications :DDD (degenerative disc disease), lumbar Take 1 Tablet by mouth every 8 hours as needed for Moderate or more severe pain. 90 Tablet 03/15/20 25 Active albuterol 108 (90 Base) MCG/ACT Aerosol Solution take 2 Puffs by inhalation every 4 hours as needed for Wheezing. 18 g 5 05/19/20 25 Active amphetamine-dextr oamphetamine (Adderall) 10 MG TabletIndications :Attention deficit hyperactivity disorder (ADHD), predominantly inattentive type Take 1 Tablet by mouth 2 times daily. 60 Tablet 06/03/20 25 Active omeprazole (PriLOSEC) 20 MG CAPSULE DELAYED RELEASE TAKE 1 CAPSULE BY MOUTH DAILY BEFORE BREAKFAST 04/17/20 23 025 Discontin ued(Med List Clean Up) albuterol 108 (90 Base) MCG/ACT Aerosol Solution take 2 Puffs by inhalation every 4 hours as needed for Wheezing. 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 03/21/2025 Right sided sciatica 03/01/2024 Right ankle swelling 03/01/2024 Acquired foot deformity, left 03/01/2024 Sleep apnea 01/14/2022 Obesity 01/14/2022 Vitamin D deficiency 08/13/2021 Hypertension Diabetes mellitus DDD (degenerative disc disease), lumbar OA (osteoarthritis) of knee Chronic pain Encounters Date Type Department Care Team Description 06/06/2025 Telephone [facility] [address] [place] [address] Igor Robertson APRN, NELIA Prior Authorization 06/03/2025 Results Follow-Up [facility] [address] [place] [address] Igor Robertson APRN, NELIA URINE DRUG SCREEN, EKG 12 LEAD 06/01/2025 10:29 AM CDT - 06/01/2025 11:59 PM CDT Hospital Encounter [facility] [address] [place] [address] Igor Robertson APRN, CNP Discharge Disposition: Discharged to home or Selfcare 05/30/2025 10:00 AM CDT Office Visit [facility] [address] [place] [address] Igor Robertson APRN, NELIA Type 2 diabetes mellitus without complication, without long-term current use of insulin (Primary Dx); Chronic pain syndrome; Attention deficit hyperactivity disorder (ADHD), predominantly inattentive type; Palpitations; Therapeutic drug monitoring; Screening for prostate cancer Discharge Disposition: Discharged to home or Selfcare 05/30/2025 Travel 05/22/2025 MyChart RX Renewal [facility] [address] [place] [address] Igor Robertson APRN, CNP Medication Renewal Declined 05/19/2025 Refill [facility] [address] [place] [address] Igor Robertson APRN, CNP Medication Refill 05/02/2025 1:00 PM CDT Outpatient Clinic Visit [facility] [address] [place] [address] Lang Barker PSYD Attention-deficit/hyperac tivity disorder, predominantly inattentive presentation, moderate (Primary Dx); Nightmare disorder; Generalized anxiety disorder Discharge Disposition: Discharged to home or Selfcare 05/02/2025 Travel 04/06/2025 1:00 PM CDT Outpatient Clinic Visit [facility] [address] [place] [address] Lang Barker PSYD Unspecified neurodevelopmental disorder (Primary Dx) Discharge Disposition: Discharged to home or Selfcare 04/05/2025 Travel 03/21/2025 2:00 PM CDT Outpatient Clinic Visit [facility] [address] [facility] [place] [address] Igor Robertson, MCKENNA, NELIA Josephrialondra, Lang Louise, PSYD Unspecified neurodevelopmental disorder (Primary Dx) Discharge Disposition: Discharged to home or Selfcare 03/21/2025 Travel 03/15/2025 MyChart RX Renewal [facility] [address] [place] [phone] Igor Robertson, MCKENNA, NELIA Medication Renewal Declined from Last 3 Months Immunizations Immunization Administration Dates Next Due Covid-19, Mrna, Lnp-s, Pf, 3 0 Mcg/0.3 Ml Dose ([employer]) 02/21/2021,01/24/2021 Influenza Vaccine 09/05/2011,10/22/2010 Influenza Vaccine, Quadrivalent, PF 08/18,11/02/2022,07/27/2021,10/13 Influenza, Injectable, Quadrivalent 11/06/2020,1 Pneumococcal Vaccine Adult - 23 Valent 4 Pneumococcal conjugate PCV20 , polysaccharide [id number] conjugate, adjuvant, PF 05/25/2024 TDAP Vaccine 10/22/2010 [...] Brandon Brother 2 Hood Alive Father Sterling oswaldo Half-Brother 1 Matt Alive Same mother Half-Brother [...] 03/05/2000 Smokeless Tobacco: Never Tobacco Cessation:Counseling Given: Yes Alcohol Use Standard Drinks/Week Comments Not Currently 0 (1 standard drink = 0.6 oz pur e alcohol) [facility] Utilities Answer Date Recorded In the past 12 months has [employer], gas, oil, or water [employer] threatened to shut off services in your home? No 05/25/2024 Social Connection and Isolation Panel Answer Date Recorded Frequency of Communication w ith Friends and Family Not on file 05/25/2024 How often do you get togethe r with friends or relatives? More than three times a week 05/25/2024 How often do you attend chur or rastafarian services? More than 4 times per year 05/25/2024 Do you belong to any clubs o r organizations such as zoroastrianism groups, unions, fraternal or athletic groups, or [...] Total Score - Questions 1-9 0 01/15 [facility] - Occupational Stress [...] to sleep or slept in a senior care (including now)? No 02/29/2024 Education Answer Date Recorded What is the highest level of school you have completed or the highest degree you have received? Associate degree: occupational, technical, or vocational program 01/11/2022 Sexually Active Control Partners Comments Not Currently None Female Sex and Gender Information Value Date Recorded Sex Assigned at Not on file Legal Sex Male 2:13 PM KAI WHAKARURUHAU Gender Identity Not on file Sexual Orientation Not on file Last Filed Vital Signs Vital Sign Reading Time Taken Comments Blood Pressure 130/86 05/30/2025 9:45 AM CDT Pulse 76 05/30/2025 10:20 AM CDT Temperature 35.9 C (96.7 F) 05/30/2025 9:45 AM CDT Respiratory Rate 18 01/27/2025 8:44 AM CDT Oxygen Saturation 92% 05/30/2025 9:45 AM CDT Inhaled Oxygen Concentration - - Weight 121.1 kg (267 lb) 05/30/2025 9:45 AM CDT Height 172.7 cm (5' 8) 05/30/2025 9:45 AM CDT Body Mass Index 40.6 05/30/2025 9:45 AM CDT Plan of Treatment Upcoming Encounters Date Type Department Care Team (Late st Contact Info) Description 06/27/2025 9:30 AM CDT Office Visit [facility] [place] [address] [place] [address] Igor Robertson, ANIMAL CARE ATTENDANT, GRISTMILLER [address] [address] Health Maintenance Due Date Last Done Comments Diabetes: Foot Exam 1976 Hepatitis B Immunization (1 of 3 - 19+ 3-dose series) 1995 Td Immunization Every 10 Years (Adults With 1 Tdap) 10/22/2020 10/22/2010 Cologuard 2021 Immunochemical Fecal Occult Blood 2021 Diabetes: Eye Exam 05/13/2023 05/13/2022 SARS-COV-2 Immunization ( season) 2024 11/02/2022, 12/16/2021, 02/21/2021, Additional history exists Influenza Immunization (#1) 07/18/202508/18, 11/02/2022, 07/27/2021, Additional history exists Diabetes: Hemoglobin A1c 11/30/2025 025, 01/27/2025, 09/20/2024, Additional history exists Diabetes: Nephropathy Screening 01/27/2026 01/27/2025, 01/27/2025, 09/13/2024, Additional history exists Colonoscopy 03/18/2027 03/18/2022, 09/14/2013 Colorectal Cancer Screening 03/18/2027 Respiratory Syncytial Virus (RSV) Immunization (Adult) (1 - 1-dose 75+ series) 2051 DTaP/Tdap/Td Immunization Discontinued 10/22/2010 Hepatitis C Virus [...] Procedure Name Priority Date/Time Associated Diagnosis Comments EKG 12 LEAD Routine 06/01/2025 10:29 AM CDT Palpitations POCT GLYCOSYLATED HEMOGLOBIN Routine 05/30/2025 10:02 AM CDT Type 2 diabetes mellitus without complication, without long-term current use of insulin URINE DRUG SCREEN Routine 05/30/2025 Chronic pain syndrome Therapeutic drug monitoring CMP (COMPREHENSIVE METABOLIC PANEL) Routine 01/27/2025 9:42 AM CDT Type 2 diabetes mellitus without complication, without long-term current use of insulin (HCC) DIABETIC BILATERAL RETINAL IMAGING WITH COMPUTERIZED INTERPRETATION Routine 05/13/2022 10:08 AM CDT Type 2 diabetes mellitus with microalbuminuria, without long-term current use of insulin (HCC) from Last 3 Months or Most Recently Relevant to Health Maintenance Results * EKG 12 LEAD (06/01/2025 10:29 AM CDT) Ventricular Rate 75 BPM EXTERNAL EKG Atrial Rate 75 BPM EXTERNAL EKG P-R Interval 158 ms EXTERNAL EKG QRS Duration 80 ms EXTERNAL EKG Q-T Duration 370 ms EXTERNAL EKG QTC CALCULATION 413 ms EXTERNAL EKG P [place] 50 degrees EXTERNAL EKG R [place] 16 degrees EXTERNAL EKG T [place] 24 degrees EXTERNAL EKG 06/01/2025 10:2 9 AM CDT Impressions EXTERNAL EKG - 06/03/2025 10:00 AM CDT Normal sinus rhythm Normal ECG When compared with ECG of 26-MAY-2024 14:07, No significant change was found Confirmed by Bon Everett ([id number]) on 06/03/2025 10:00:39 AM Narrative Procedure Note Bon Everett MD PhD - 06/03/2025 IMPRESSION: Normal sinus rhythm Normal ECG When compared with ECG of 26-MAY-2024 14:07, No significant change was found Confirmed by Bon Everett ([id number]) on 06/03/2025 10:00:39 AM Igor Robertson APRN, CNP IMG ECG ORDERABL ES Final Result EXTERNAL EKG * POCT GLYCOSYLATED HEMOGLOBIN (05/30/2025 10:02 AM CDT) HGB-A1C 4.6 4 - 6 % Blood 05/30/2025 10:0 2 AM CDT Igor Robertson APRN, CNP POINT OF CARE TE STING (MANUAL) Final Result * URINE DRUG SCREEN (05/30/2025) Urine 05/30/2025 Igor Robertson APRN, CNP URINE ORDERABLES Final Result * (ABNORMAL) CMP (COMPREHENSIVE METABOLIC PANEL) (01/27/2025 9:42 AM CDT) SODIUM 141 136 - 145 mmol/L 01/27/2025 10:55 AM CDT [facility] POTASSIUM 3.9 3.5 - 5.1 mmol/L 01/27/2025 10:55 AM CDT [facility] CHLORIDE 107 98 - 107 mmol/L 01/27/2025 10:55 AM CDT [facility] CO2, VENOUS 26 22 - 30 mmol/L 01/27/2025 10:55 AM CDT [facility] ANION GAP 11.9 <18.0 mmol/L 01/27/2025 10:55 AM CDT [facility] GLUCOSE 98 70 - 99 mg/dL 01/27/2025 10:55 AM CDT [facility] BUN 9 9 - 21 mg/dL 01/27/2025 10:55 AM CDT [facility] CREATININE, BLOOD 0.86 0.70 - 1.30 mg/dL 01/27/2025 10:55 AM CDT [facility] BUN/CREATININE RATIO 10(L) 12 - 20 ratio 01/27/2025 10:55 AM CDT [facility] TOTAL PROTEIN 7.6 6.0 - 8.0 g/dL 01/27/2025 10:55 AM CDT [facility] ALBUMIN 4.2 3.5 - 5.0 g/dL 01/27/2025 10:55 AM CDT [facility] A/G RATIO 1.2 1.0 - 2.2 01/27/2025 10:55 AM CDT [facility] CALCIUM 9.9 8.7 - 10.5 mg/dL 01/27/2025 10:55 AM CDT [facility] T BILI 1.2 0.2 - 1.2 mg/dL 01/27/2025 10:55 AM CDT [facility] SGOT (AST) 23 <43 U/L 01/27/2025 10:55 AM CDT [facility] SGPT (ALT) 55 <56 U/L 01/27/2025 10:55 AM CDT [facility] ALKALINE PHOSPHATASE 70 40 - 150 U/L 01/27/2025 10:55 AM CDT [facility] IS THE PATIENT REQUIRED TO BE FASTING? No 01/27/2025 10:55 AM CDT [facility] GFR, ESTIMATED >60 >=60 01/27/2025 10:55 AM CDT [facility] Comment: Creatinine Clearance is the preferred criteria for selecting drug dose adjustments in renally impaired patients. The GFR is provided as additional pertinent clinical information. GFR is reported in mL/min/1.73 sq m. Calculation based on the Chronic Kidney Disease Epidemiology Collaboration (CKD- EPI) equation refit without adjustment for race. GFR, EST. >60 >=60 025 10:55 AM CDT [facility] GFR, EST. NONAFRICAN >60 >=60 01/27/2025 10:55 AM CDT [facility] Blood Venipuncture / Unknown 01/27/2025 9:42 AM CDT 01/27/2025 10:24 AM CDT Igor Robertson APRN, CNP CHEMISTRY ORDERA BLES Final Result [facility] [address] [place] [address] * (ABNORMAL) DIABETIC BILATERAL RETINAL IMAGING WITH COMPUTERIZED INTERPRETATION (05/13/2022 10:08 AMCDT) DIABETIC BILATERAL DIGITAL RETINAL IMAGING Exam quality insufficien t(A) [facility] Comment: Next Steps: Refer to professional advisor IDx Submission ID: [id number] Results were produced by a system that provides an artificial intelligence (AI) interpretation A positive result indicates a high risk of diabetic retinopathy with a severity of ETDRS level 35 or higher and/or macular edema. IDx-DR diabetic retinopathy exam does not replace a comprehensive eye exam. Other 05/13/2022 10:0 8 AM CDT Igor Robertson APRN, CNP OUTPT PROCEDURE ORDERABLES Final Result EXTERNAL EKG [facility] from Last 3 Months or Most Recently Relevant to Health Maintenance Insurance [facility] Care Teams Complex Case Manager Relationship Specialty Start Date End Date Igor Robertson APRN, GRISTMILLER [address] [facility] [address] [address] PCP - General Advanced Practice Nurse 07/27/21 Afshan Handy III, MD [address] [place] [address] Consulting Physician Urology 01/06/23
--- OUTSIDE RECORDS SUMMARY | 2025-06-14 04:00 | XMS_ITS | Encounter Summary ---
Author Organization [facility] Address [address] [place] [address] Phone Care Team Providers Care Electrical Maintenance Man Name Role Phone Igor Robertson APRN, CNP Primary Care Pr ovider Misael Saleem MD Unavailable Giovani Handy III, MD, Courtney Unavailable [phone] Reason for Visit * Reason Comments Medication Refill Encounter Details Date Type Department Care Team (Late st Contact Info) Description 09/05/2022 Refill [facility] [address] [place] [phone] Igor Robertson APRN, NELIA [address] [address] Medication Refill Social History Tobacco Use Types [...] on file 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 Gender Identity Not on file Sexual Orientation [...] Visit Igor Robertson APRN, NELIA [facility] 05/28/22 Office Visit Igor Robertson APRN, NELIA [facility] 05/13/22 Procedure Visit [facility] 05/13/22 Office Visit Igor Robertson APRN, NELIA [facility] 05/02/22 Office Visit Igor Robertson APRN, NELIA [facility] 03/04/22 Office Visit Igor Robertson APRN, NELIA [facility] 01/14/22 Office Visit Igor Robertson APRN, NELIA [facility] 12/05/21 Office Visit Igor Robertson APRN, SWATCH FOLDER [facility] Showing recent visits within past 365 days and meeting all other requirements Future Appointments Date Type Provider Dept 10/21/22 Appointment Igor Robertson APRN, SWATCH FOLDER [facility] Showing future appointments within next 90 days [...] Visit [facility] [address] [place] [address] Igor Robertson APRN, SWATCH FOLDER [address] [address] documented as of this encounter Visit Diagnoses Diagnosis Chronic right-sided low back pain with right-sided sciatica DDD (degenerative disc disease), lumbar Degeneration of lumbar or lumbosacral intervertebral disc documented in this encounter Additional Health Concerns Infection Onset Date Last Indicated Resolved Time COVID - 19 10/10/2023 10/10/2023 10/20/2023 12:1 6 AM MUCKING MACHINE OPERATOR documented as of this encounter Care Teams Electrical Maintenance Man Relationship Specialty Start Date End Date Igor Robertson APRN, SWATCH FOLDER [address] [address] PCP - General Advanced Practice Nurse 07/27/21 Misael Saleem MD #[address] [address] Consulting Physician Cardiovascular Disease - Cardiology 12/26/22 01/05/25 Afshan Handy III, MD #2 [place] [address] Consulting Physician Urology 01/06/23 documented as of this encounter
--- OUTSIDE RECORDS SUMMARY | 2025-06-14 04:00 | XMS_ITS | Clinical Summary ---
Author Organization [facility] Address [facility] [place] [address] Care Team Providers Care Children'S Author Name Role Phone Desmond Sol MD Unavailable [phone] Ariana Stark MD Primary Care Provider [phone] Social History Tobacco Use Types Packs/Day Years Used Date Smoking Tobacco: Never Assessed Sex and Gender Information Value Date Recorded Sex Assigned at Not on file Legal Sex Male 9:32 AM CDT Gender Identity Not on file Sexual Orientation Not on file Plan of Treatment Health Maintenance Due Date Last Done Comments Colorectal Cancer Screening Colonoscopy (10 Years) 1976 Annual Physical 1979 Hepatitis C 1994 DTaP, Tdap and Td Vaccines ( 1 - Tdap) 1995 Hepatitis B Vaccines (1 of 3 - 19+ 3-dose series) 1995 COVID-19 Vaccine (2023-2 5 season) 2024 Meningococcal B Vaccine Aged Out No l onger eligible based on patient's age to complete this topic Meningococcal Vaccine Aged Out No wendi jorge eligible based on patient's age to complete this topic Pneumococcal Vaccine: Pediat rics (0 to 5 Years) and At-Risk Patients (6 to 49 Years) Aged Out No longer eligible b ased on patient's age to complete this topic RSV Immunizations Under 20 Months Aged Out No longer eligible based on patient's age to complete this topic Insurance [facility] Care Teams Children'S Author Relationship Specialty Start Date End Date Ariana Stark MD [facility] [address] [address] PCP - General FAMILY PRACTICE 02/15/20 Desmond Sol MD [address] [place] [id number] INTERNAL MEDICINE 03/26/17
--- OUTSIDE RECORDS SUMMARY | 2025-06-14 04:00 | XMS_ITS | Clinical Summary ---
Author Organization [facility] Address [address] [place] [address] Care Team Providers Care Printed Circuit Board Preassembler Name Role Phone Igor Robertson APN Primary Care Provider [phone] Medications tiZANidine (ZANAFLEX) 4 MG tablet tizanidine 4 mg tablet TAKE 1 TO 2 TABLETS BY MOUTH THREE TIMES DAILY NEEDED Active naproxen (NAPROSYN) 500 MG tablet Take 1 tablet by mouth if needed Active traMADol (ULTRAM) 50 MG tablet Take 50 mg by mouth every 6 (six) hours if needed Active HYDROcodone-ac etaminophen (VICODIN) 10-300 MG per tablet Take 1 tablet by mouth every 6 (six) hours if needed Active ergocalciferol 1.25 MG (02175 UT) capsule Take 1 capsule (50,000 Units total) by mouth 1 (one) time per week 12 capsule 1 07/10/20 22 Active Empagliflozin (Jardiance) 10 MG tablet Take 10 mg by mouth 1 (one) time each day in the morning 30 tablet 5 09/21/20 24 Active irbesartan (AVAPRO) 150 MG tablet TAKE 1 TABLET(150 MG) BY MOUTH 1 TIME EACH DAY 90 tablet 1 05/19/20 25 Active irbesartan (AVAPRO) 150 MG tablet Take 1 tablet (150 mg total) by mouth 1 (one) time each day 90 tablet 1 08/25/20 24 025 Discontinued Encounters Date Type Department Care Team Description 05/18/2025 Refill [facility], [address] [address] Chris Turner DO from Last 3 Months [...] Comments Blood Pressure 120/70 09/21/2024 12:36 PM MANAGER CALL Pulse 72 09/21/2024 12:36 PM MANAGER CALL Temperature 36.1 C (97 F) 09/21/2024 12:36 PM MANAGER CALL Respiratory Rate 18 09/21/2024 12:36 PM MANAGER CALL Oxygen Saturation 99% 09/21/2024 12:36 PM MANAGER CALL Inhaled Oxygen Concentration - - Weight 130 kg (287 lb) 09/21/2024 12:36 PM MANAGER CALL Height 172.7 cm (5' 8) 01/08/2023 1:59 PM MANAGER CALL Body Mass Index 43.64 01/08/2023 1:59 PM MANAGER CALL Plan of Treatment Upcoming Encounters Date Type Department Care Team (Late st Contact Info) Description 09/27/2025 12:30 PM MANAGER CALL Office Visit [facility], [facility] [address] [facility] [address] [place] [phone] Chris Turner DO [address] [facility] 1 [place] [id number] Health Maintenance Due Date Last Done Comments [...] 09/20/2024, 09/13/2024, Additional history exists Influenza Vaccine (#1) 2025 3, 11/02/2022, 07/27/2021, Additional history exists Procedures Procedure Name Priority Date/Time Associated Diagnosis Comments HEMOGLOBIN A1C Routine 09/20/2024 8:23 AM MANAGER CALL from Last 3 Months or Most Recently Relevant to Health Maintenance Results * Hemoglobin A1c (09/20/2024 8:23 AM MANAGER CALL) Hemoglobin A1C 5.1 <5.7 % of total [...] of diabetes in children. According to [place] Diabetes Association (ADA) guidelines, hemoglobin A1c <7.0% represents optimal control in non- diabetic patients. Different metrics may apply to specific patient populations. Standards of Medical Care in Diabetes(ADA). 09/20/2024 8:2 3 AM MANAGER CALL 09/20/2024 8:26 AM MANAGER CALL Narrative [facility] - 09/21/2024 4:01 AM MANAGER CALL INSURANCE ON PHONE FASTING:NO FASTING: NO Resulting Agency Comment Performing Organization Information: Site ID: Name[facility] Address: [address] [place] [address] Director: Philipp Bueno us Chris Turner DO LAB BLOOD ORDERABLES Final R esult [facility] See order comments [place] [address] from Last 3 Months or Most Recently Relevant to Health Maintenance Insurance [facility] Care Teams Printed Circuit Board Preassembler Relationship Specialty Start Date End Date Igor Robertson APN [address] [address] PCP - General Nurse Practitioner 08/30/21
--- OUTSIDE RECORDS SUMMARY | 2025-06-14 04:00 | XMS_ITS | Encounter Summary ---
Author Organization [facility] Address [address] [place] [address] Phone Care Team Providers Care Pretzel Twisting Machine Operator Name Role Phone Igor Robertson APRN, CNP Primary Care Pr ovider Misael Saleem MD Unavailable Giovani Handy III, MD, Courtney Unavailable [phone] Reason for Visit * Reason Comments Medication Refill Encounter Details Date Type Department Care Team (Late st Contact Info) Description 07/18/2022 Refill [facility] [address]2 [place] [phone] Igor Robertson APRN, NELIA [address] [address] Medication Refill Social History Tobacco Use Types [...] on file 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 Gender Identity Not on file Sexual Orientation [...] Office Visit Igor Robertson APRN, NELIA [facility] [place] 05/28/22 Office Visit Igor Robertson APRN, NELIA [facility] 05/13/22 Procedure Visit [facility] [place] 05/13/22 Office Visit Igor Robertson APRN, NELIA [facility] [place] 05/02/22 Office Visit Igor Robertson APRN, NELIA [facility] 03/04/22 Office Visit Igor Robertson APRN, REINFORCING BAR SETTER [facility] [place] 01/14/22 Office Visit Igor Robertson APRN, REINFORCING BAR SETTER [facility] 12/05/21 Office Visit Igor Robertson APRN, NELIA [facility] 07/27/21 Office Visit Igor Robertson APRN, REINFORCING BAR SETTER [facility] [place] Showing recent visits within past 365 days [...] Visit [facility] [address]2 [place] [address] Igor Robertson APRN, REINFORCING BAR SETTER #[address] [address] documented as of this encounter Visit Diagnoses Diagnosis Chronic right-sided low back pain with right-sided sciatica DDD (degenerative disc disease), lumbar Degeneration of lumbar or lumbosacral intervertebral disc documented in this encounter Additional Health Concerns Infection Onset Date Last Indicated Resolved Time COVID - 19 10/10/2023 10/10/2023 10/20/2023 12:1 6 AM PLUMBER ASSISTANT documented as of this encounter Care Teams Pretzel Twisting Machine Operator Relationship Specialty Start Date End Date Igor Robertson APRN, REINFORCING BAR SETTER #[address] [address] PCP - General Advanced Practice Nurse 07/27/21 Misael Saleem MD #[address] [address] Consulting Physician Cardiovascular Disease - Cardiology 12/26/22 01/05/25 Afshan Handy III, MD #2 [place] [address] Consulting Physician Urology 01/06/23 documented as of this encounter
--- OUTSIDE RECORDS SUMMARY | 2025-06-14 04:00 | XMS_ITS | Clinical Summary ---
Author Organization [facility] Jobyal Address [address] [place] [address] Care Team Providers Care Lock Operator Name Role Phone Igor Robertson APRN-HERITAGE CONSULTANT Primary Care Pro vider Source Comments [facility],non-owned Affiliates and Associated Physician Practices is amultiple site organization consisting of ambulatory clinics and hospital sitesin [place], [place], [place] and [place]. This disclosure is being madepursuant to the Care Everywhere program and may not contain all information available regarding this patient. Last updated 18.[facility] Allergies Active Allergy Reactions Criticality Noted Date [...] Active Additional Information Patient not taking.Reported on 05/17/2025 omeprazole (PriLOSEC) 20 MG capsule Take 1 (one) capsule by mouth once daily 30 capsule 3 Active Additional Information Patient not taking.Reported on 05/17/2025 HYDROcodone-ac etaminophen ([place]) 10-325 MG tablet Take 1 (one) tablet [...] BEFORE BREAKFAST 30 capsule 5 3 Active Additional Information Patient not taking.Reported on 05/17/2025 Mounjaro 10 MG/0.5ML injection ADMINISTER 10 MG UNDER THE SKIN 1 TIME A WEEK Active Jardiance 10 MG tablet TAKE 1 TABLET BY MOUTH 1 TIME EACH DAY IN THE MORNING Active acetaminophen (Tylenol) 160 MG/5ML solution Take 31.25 mL by mouth every 8 hours 3 Discontin ued(No Pharm No AVS) Active Problems Problem Noted Date Diagnosed Date Morbid obesity 01/13/2023 Encounters Date Type Department Care Team Description 05/17/2025 1:00 PM CDT Office Visit [facility] [address] [place] [address], [place] [phone] Zena Lovett, MCKENNA-NELIA Morbid obesity (HCC) (Primary Dx); Bariatric surgery status; Vitamin deficiency; Vitamin D deficiency; Vitamin B deficiency; Mineral deficiency; Arthralgia, unspecified joint from Last 3 Months Immunizations Immunization Administration Dates Next Due INFLUENZA [...] and heating? Not hard at all 01/13/2023 [facility] of Occupat ional Health - Occupational Stress [...] in a senior living (including now)? No 01/13/2023 Sex and Gender Information Value Date Recorded Sex Assigned at Male 12/04/2022 2:05 PM TRAILER PARK MANAGER Legal Sex Male 5:32 AM TRAILER PARK MANAGER Gender Identity Male 12/04/2022 2:05 PM TRAILER PARK MANAGER Sexual Orientation Straight 12/04/2022 2: 05 PM TRAILER PARK MANAGER Last Filed Vital Signs Vital Sign Reading Time Taken Comments Blood Pressure 116/74 05/17/2025 1:03 PM CDT Pulse 67 05/17/2025 1:03 PM CDT Temperature 36.1 C (97 F) 05/17/2025 1:03 PM CDT Respiratory Rate 18 07/18/2023 9:28 AM CDT Oxygen Saturation 97% 05/17/2025 1:03 PM CDT Inhaled Oxygen Concentration - - Weight 119.2 kg (262 lb 12.8 oz) 05/17/2025 1:03 PM CDT Height 175.3 cm (5' 9) 05/17/2025 1:03 PM CDT Body Mass Index 38.81 05/17/2025 1:03 PM CDT Plan of Treatment Upcoming Encounters Date Type Department Care Team (Late st Contact Info) Description 05/16/2026 1:30 PM CDT Office Visit [facility] [address], [address] [place] [address] Zena Lovett, ACADEMIC SUCCESS COORDINATOR-HERITAGE CONSULTANT [address] [place] [phone] Health Maintenance Due Date Last Done Comments [...] 09/14/2013 Colorectal Cancer Screening 09/14/2023 COVID-19 VACCINE (3 - season) 2024 02/21/2021, 01/24/2021 DEPRESSION SCREENING 11/17/2024 INFLUENZA VACCINE (#1) 2025 , 11/02/2022, 07/27/2021, Additional history exists ZOSTER VACCINE (1 of 2) 2026 LIPID TESTING 07/08/2027 07/08/2022, 08/13/2021 SCREENING FOR DIABETES 01/28/2028 , 01/27/2025, 09/20/2024, Additional history exists HEPATITIS C SCREENING Completed 05/10/2023 , 05/10/2023, [...] Procedure Name Priority Date/Time Associated Diagnosis Comments VITAMIN D 25-HYDROXY Routine 05/30/2025 8:56 AM CDT Morbid obesity (HCC) Bariatric surgery status Vitamin deficiency Vitamin D deficiency Vitamin B deficiency Mineral deficiency Arthralgia, unspecified joint VITAMIN B12 Routine 05/30/2025 8:56 AM CDT Morbid obesity (HCC) Bariatric surgery status Vitamin deficiency Vitamin D deficiency Vitamin B deficiency Mineral deficiency Arthralgia, unspecified joint VITAMIN B1 Routine 05/30/2025 8:56 AM CDT Morbid obesity (HCC) Bariatric surgery status Vitamin deficiency Vitamin D deficiency Vitamin B deficiency Mineral deficiency Arthralgia, unspecified joint MAGNESIUM BLOOD Routine 05/30/2025 8:55 AM CDT Morbid obesity (HCC) Bariatric surgery status Vitamin deficiency Vitamin D deficiency Vitamin B deficiency Mineral deficiency Arthralgia, unspecified joint PREALBUMIN Routine 05/30/2025 8:55 AM CDT Morbid obesity (HCC) Bariatric surgery status Vitamin deficiency Vitamin D deficiency Vitamin B deficiency Mineral deficiency Arthralgia, unspecified joint PTH INTACT Routine 05/30/2025 8:55 AM CDT Morbid obesity (HCC) Bariatric surgery status Vitamin deficiency Vitamin D deficiency Vitamin B deficiency Mineral deficiency Arthralgia, unspecified joint COPPER BLOOD Routine 05/30/2025 8:55 AM CDT Morbid obesity (HCC) Bariatric surgery status Vitamin deficiency Vitamin D deficiency Vitamin B deficiency Mineral deficiency Arthralgia, unspecified joint ZINC BLOOD Routine 05/30/2025 8:55 AM CDT Morbid obesity (HCC) Bariatric surgery status Vitamin deficiency Vitamin D deficiency Vitamin B deficiency Mineral deficiency Arthralgia, unspecified joint FOLATE RBC Routine 05/30/2025 8:55 AM CDT Morbid obesity (HCC) Bariatric surgery status Vitamin deficiency Vitamin D deficiency Vitamin B deficiency Mineral deficiency Arthralgia, unspecified joint FERRITIN Routine 05/30/2025 8:55 AM CDT Morbid obesity (HCC) Bariatric surgery status Vitamin deficiency Vitamin D deficiency Vitamin B deficiency Mineral deficiency Arthralgia, unspecified joint IRON + TIBC PANEL Routine 05/30/2025 8:5 5 AM CDT Morbid obesity (HCC) Bariatric surgery status Vitamin deficiency Vitamin D deficiency Vitamin B deficiency Mineral deficiency Arthralgia, unspecified joint HEMOGLOBIN A1C Routine 07/29/2023 12:30 PM CDT Morbid obesity Bariatric surgery status Vitamin deficiency Vitamin D deficiency Vitamin B deficiency Mineral deficiency DM (diabetes mellitus) type II, controlled, with peripheral vascular disorder from Last 3 Months or Most Recently Relevant to Health Maintenance Results * VITAMIN B1 (05/30/2025 8:56 AM CDT) Vitamin B1 Whole Blood 85.3 66.5 - 200.0 nmol/L [facility] ACCOUNT BILL Blood BLOOD SPECIMEN / Unknown 05/30/2025 8:56 AM CDT 05/30/2025 Narrative [facility] ACCOUNT BILL - 06/01/2025 9:08 PM CDT Test(s) [id number]-Bfs. B1, Whole Blood was developed and its performance characteristics determined by [facility]. It has not been cleared or approved by the Food and Drug Administration. Performed at: 01 - [address] [id number] Control Panel Operator Crude Unit: Cristo Perry MD, Phone: [phone] Zena Lovett ACADEMIC SUCCESS COORDINATOR-HERITAGE CONSULTANT LAB - CHEMISTRY O RDERABLES Final Result Performing Organization Address City/[facility]/ZIP Co de Phone Number [facility] ACCOUNT BILL [address] [place] [address] * VITAMIN D 25-HYDROXY (05/30/2025 8:56 AM CDT) Vitamin D, 25 Hydroxy 38.7 30.0 - 100.0 ng/mL [facility] ACCOUNT BILL Comment: Vitamin D deficiency has been defined by the [place] of Medicine and an Endocrine Society practice guideline as a level of serum 25-OH vitamin D less than 20 ng/mL (1,2). The Endocrine Society went on to further define vitamin D insufficiency as a level between 21 and 29 ng/mL (2). 1. IOM ([place] of Medicine). 2010. Dietary reference intakes for calcium and D. [place]: The National Academies Press. 2. Arjun MF, Pete JIMENEZ, Дмитрий LYNN, et al. Evaluation, treatment, and prevention of vitamin D deficiency: an Endocrine Society clinical practice guideline. JCEM. 2010; 96(7):1911-30. Blood BLOOD SPECIMEN / Unknown 05/30/2025 8:56 AM CDT 05/30/2025 Narrative [facility] ACCOUNT BILL - 05/31/2025 7:09 AM CDT Performed at: - [facility] [address] [id number] Control Panel Operator Crude Unit: Sanjay sEpaña PhD, Phone: [phone] Zena Lovett ACADEMIC SUCCESS COORDINATOR-HERITAGE CONSULTANT LAB - CHEMISTRY O RDERABLES Final Result Performing Organization Address City/[facility] Co de Phone Number [facility] ACCOUNT BILL [address] [place] [address] * VITAMIN B12 (05/30/2025 8:56 AM CDT) Vitamin B12 377 232 - 1,245 pg/mL [facility] ACCOUNT BILL Blood BLOOD SPECIMEN / Unknown 05/30/2025 8:56 AM CDT 05/30/2025 Narrative [facility] ACCOUNT BILL - 05/31/2025 7:09 AM CDT Performed at: - [facility] [address] [place], [place] [id number] Control Panel Operator Crude Unit: Sanjay España PhD, Phone: [phone] us Zena Lovett [facility] LAB - CHEMISTRY O RDERABLES Final Result Performing Organization Address [facility] Co de Phone Number [facility] ACCOUNT BILL [address] [place] [address] * ZINC BLOOD (05/30/2025 8:55 AM CDT) Zinc, Plasma or Serum 63 44 - 115 ug/dL [facility] ACCOUNT BILL Comment:Detection Limit = 5 Blood BLOOD SPECIMEN / Unknown 05/30/2025 8:55 AM CDT 05/30/2025 Narrative [facility] ACCOUNT BILL - 06/02/2025 7:09 AM CDT Test(s) [id number], Plasma or Serum was developed and its performance characteristics determined by [facility]. It has not been cleared or approved by the Food and Drug Administration. Performed at: - [facility] [id number] Control Panel Operator Crude Unit: Cristo Perry MD, Phone: [phone] us Zena Lovett ACADEMIC SUCCESS [facility] LAB - CHEMISTRY O RDERABLES Final Result Performing Organization Address [facility] Co de Phone Number [facility] ACCOUNT BILL [address] [place] [address] * PTH INTACT (05/30/2025 8:55 AM CDT) [facility] Signature PTH Intact 39 15 - 65 pg/mL [facility] ACCOUNT BILL Blood BLOOD SPECIMEN / Unknown 05/30/2025 8:55 AM CDT 05/30/2025 Narrative [facility] ACCOUNT BILL - 05/31/2025 3:10 PM CDT Performed at: [facility] [id number] Control Panel Operator Crude Unit: Sanjay España PhD, Phone: [phone] us Zena Hopkinstep ACADEMIC SUCCESS COORDINATOR-HERITAGE CONSULTANT LAB - CHEMISTRY O RDERABLES Final Result [facility] ACCOUNT BILL [address] [place] [address] * COPPER BLOOD (05/30/2025 8:55 AM CDT) Copper 95 69 - 132 ug/dL [facility] ACCOUNT BILL Comment:Detection Limit = 5 Blood BLOOD SPECIMEN / Unknown 05/30/2025 8:55 AM CDT 05/30/2025 Narrative [facility] ACCOUNT BILL - 06/02/2025 7:09 AM CDT Test(s) [id number], Serum or Plasma was developed and its performance characteristics determined by [facility]. It has not been cleared or approved by the Food and Drug Administration. Performed at: - [facility] [id number] Control Panel Operator Crude Unit: Cristo Perry MD, Phone: [phone] us Zena Lovett ACADEMIC SUCCESS COORDINATOR-HERITAGE CONSULTANT LAB - CHEMISTRY O RDERABLES Final Result [facility] ACCOUNT BILL [address] [place] [address] * FOLATE RBC (05/30/2025 8:55 AM CDT) Folate Hemolysate 404.0 Not Estab. ng/mL [facility] ACCOUNT BILL Hematocrit 42.5 37.5 - 51.0 % [facility] ACCOUNT BILL Folate RBC 951 >498 ng/mL [facility] ACCOUNT BILL Blood BLOOD SPECIMEN / Unknown 05/30/2025 8:55 AM CDT 05/30/2025 Narrative [facility] ACCOUNT BILL - 05/31/2025 3:10 PM CDT Performed at: - [facility] [address] [place] [id number] Control Panel Operator Crude Unit: Sanjay España PhD, Phone: [phone] us Zena Lovett ACADEMIC SUCCESS COORDINATOR-HERITAGE CONSULTANT LAB - CHEMISTRY O RDERABLES Final Result Performing Organization Address City/[facility]/ZIP Co de Phone Number [facility] ACCOUNT BILL [address] [place] [address] * PREALBUMIN (05/30/2025 8:55 AM CDT) Prealbumin 23 12 - 34 mg/dL [facility] ACCOUNT BILL Blood BLOOD SPECIMEN / Unknown 05/30/2025 8:55 AM CDT 05/30/2025 Narrative [facility] ACCOUNT BILL - 05/31/2025 6:09 AM CDT Performed at: 01 - [facility] [address] [id number] Control Panel Operator Crude Unit: Sanjay España PhD, Phone: [phone] us Zena Lovett ACADEMIC SUCCESS COORDINATOR-HERITAGE CONSULTANT LAB - CHEMISTRY O RDERABLES Final Result Performing Organization Address [facility] Co de Phone Number [facility] ACCOUNT BILL [address] [place] [address] * MAGNESIUM BLOOD (05/30/2025 8:55 AM CDT) Magnesium 2.0 1.6 - 2.3 mg/dL [facility] ACCOUNT BILL Blood BLOOD SPECIMEN / Unknown 05/30/2025 8:55 AM CDT 05/30/2025 Narrative [facility] ACCOUNT BILL - 05/31/2025 7:09 AM CDT Performed at: - [facility] [address] [id number] Control Panel Operator Crude Unit: Sanjay España PhD, Phone: [phone] us Zena Lovett ACADEMIC SUCCESS COORDINATOR-HERITAGE CONSULTANT LAB - CHEMISTRY O RDERABLES Final Result Performing Organization Address City/[facility] Co de Phone Number [facility] ACCOUNT BILL [address] [place] [address] * IRON + TIBC PANEL (05/30/2025 8:55 AM CDT) TIBC 286 250 - 450 ug/dL [facility] ACCOUNT BILL UIBC 210 111 - 343 ug/dL [facility] ACCOUNT BILL Iron 76 38 - 169 ug/dL [facility] ACCOUNT BILL Iron Saturation 27 15 - 55 % [facility] ACCOUNT BILL Blood BLOOD SPECIMEN / Unknown 05/30/2025 8:55 AM CDT 05/30/2025 Narrative [facility] ACCOUNT BILL - 05/31/2025 7:09 AM CDT Performed at: - [facility] [id number] Control Panel Operator Crude Unit: Sanjay España PhD, Phone: [phone] us Znea Lovett ACADEMIC SUCCESS COORDINATOR-HERITAGE CONSULTANT LAB - CHEMISTRY O RDERABLES Final Result Performing Organization Address [facility] de Phone Number [facility] ACCOUNT BILL [address] [place] [address] * FERRITIN (05/30/2025 8:55 AM CDT) Ferritin 165 30 - 400 ng/mL [facility] ACCOUNT BILL Blood BLOOD SPECIMEN / Unknown 05/30/2025 8:55 AM CDT 05/30/2025 Narrative [facility] ACCOUNT BILL - 05/31/2025 7:09 AM CDT Performed at: [facility] [id number] Control Panel Operator Crude Unit: Sanjay Espñaa PhD, Phone: [phone] us Zena Lovett ACADEMIC SUCCESS COORDINATOR-HERITAGE CONSULTANT LAB - CHEMISTRY O RDERABLES Final Result Performing Organization Address City/[facility] de Phone Number [facility] ACCOUNT BILL [address] [place] [address] * (ABNORMAL) HEMOGLOBIN A1C (HgbA1C) (07/29/2023 12:30 PM CDT) Hemoglobin A1c 6.1(H) 4.8 - 5.6 % [facility] ACCOUNT BILL Comment: . Prediabetes: 5.7 - 6.4 Diabetes: >6.4 Glycemic control for adults with diabetes: <7.0 Blood BLOOD SPECIMEN / Unknown 07/29/2023 12:30 PM CDT 07/29/2023 Narrative Resulting Agency Comment Lab Testing performed at: [facility] [address] [facility] [id number] Zena Hopkinskalli ACADEMIC SUCCESS COORDINATOR-HERITAGE CONSULTANT LAB - CHEMISTRY O RDERABLES Final Result [facility] ACCOUNT BILL [address] [place] [address] from Last 3 Months or Most Recently Relevant to Health Maintenance Insurance [facility] Advance Directives * Full Code (Latest Code Status on File) Date Activated Date Inactivated Comments 01/13/2023 10:02 AM 01/15/2023 12:51 PM Care Teams Lock Operator Relationship Specialty Start Date End Date Igor Robertson APRN-HERITAGE CONSULTANT [address] [address] PCP - General Nurse Practitioner 01/01/23
--- OUTSIDE RECORDS SUMMARY | 2025-06-14 04:00 | XMS_ITS | Encounter Summary ---
Author Organization [facility] Address [address] [place] [address] Phone Care Team Providers Care Fire Fighter Name Role Phone Igor Robertson APRN, CNP Primary Care Pr ovider Misael Saleem MD Unavailable Giovani Handy III, MD, Courtney Unavailable [phone] Reason for Visit * Reason Comments Medication Refill Encounter Details Date Type Department Care Team (Late st Contact Info) Description 08/06/2022 Refill [facility] [address] [place] [phone] Igor Robertson APRN, NELIA #[address] [address] Medication Refill Social History Tobacco Use Types [...] on file Legal Sex Male 2: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 Gender Identity Not on file Sexual Orientation [...] Office Visit Igor Robertson APRN, NELIA [facility] [place] 05/28/22 Office Visit Igor Robertson APRN, NELIA [facility] 05/13/22 Procedure [facility] Office Visit Igor Robertson APRN, NELIA [facility] 05/02/22 Office Visit Igor Robertson APRN, NELIA [facility] 03/04/22 Office Visit Igor Robertson APRN, HOUSETRAILER SERVICER [facility] Showing recent visits within past 182 days and meeting all other requirements Future Appointments Date Type Provider Dept 10/21/22 Appointment Igor Robertson APRN, HOUSETRAILER SERVICER [facility] Showing future appointments within next [...] Dept 07/08/22 Office Visit Igor Robertson APRN, CNP [facility] 05/28/22 Office Visit Igor Robertson APRN, CNP [facility] 05/13/22 Procedure Visit [facility] 05/13/22 Office Visit Igor Robertson APRN, CNP [facility] 05/02/22 Office Visit Igor Robertson APRN, CNP [facility] 03/04/22 Office Visit Igor Robertson APRN, NELIA [facility] Showing recent visits within past 182 days and meeting all other requirements Future Appointments Date Type Provider Dept 10/21/22 Appointment Igor Robertson APRN, NELIA [facility] Showing future appointments within next 90 days and meeting all other requirements Passed - No PRN Use for Trazodone documented in this encounter Plan of Treatment Upcoming Encounters Date Type Department Care Team (Late st Contact Info) Description 06/27/2025 9:30 AM CDT Office Visit [facility] - [facility] - [place] [address] [place] [address] Igor Robertson APRN, NELIA #[address] [address] documented as of this encounter Visit Diagnoses Diagnosis Primary insomnia Persistent disorder of initiating or maintaining sleep documented in this encounter Additional Health Concerns Infection Onset Date Last Indicated Resolved Time COVID - 19 10/10/2023 10/10/2023 10/20/2023 12:1 6 AM JUVENILE JUSTICE SPECIALIST documented as of this encounter Care Teams Fire Fighter Relationship Specialty Start Date End Date Igor Robertson APRN, HOUSETRAILER SERVICER #[address] [address] PCP - General Advanced Practice Nurse 07/27/21 Misael Saleem MD #[address] [address] Consulting Physician Cardiovascular Disease - Cardiology 12/26/22 01/05/25 Afshan Handy III, MD [address] [place] [address] Consulting Physician Urology 01/06/23 documented as of this encounter
--- OUTSIDE RECORDS SUMMARY | 2025-06-14 04:00 | XMS_ITS | Encounter Summary ---
Author Organization [facility] , [facility] Address [address] [place] [address] Phone Care Team Providers Care Hat Cleaner Name Role Phone MarceloIgor talavera Tucker RAMIREZ Primary Care Provider [phone] Reason for Visit * Reason Comments Med Refill Encounter Details Date Type Department Care Team (Late st Contact Info) Description 01/18/2023 Refill [facility], [facility] [address] [place] [address] Chris Turner DO [address] [address] Social History Tobacco Use Types [...] Coronavirus/COVID-19? No / Unsure 01/08/2023 1:10 PM MEDICAL CODING SPECIALIST documented as of this encounter Miscellaneous Notes * Telephone Encounter - Lay Morataya CMA - 01/20/2023 8:22 AM CST duplicate documented in this encounter Plan of Treatment Upcoming Encounters Date Type Department Care Team (Late st Contact Info) Description 09/27/2025 12:30 PM MEDICAL CODING SPECIALIST Office Visit [facility], [facility] [address] [facility] [address] [place] [address] Chris Turner DO [address] [facility] [address] [place] [address] documented as of this encounter Visit Diagnoses Not on filedocumented in this encounter Care Teams Hat Cleaner Relationship Specialty Start Date End Date Igor Robertson PARKS AND RECREATION MANAGER 2 [facility] [address] [place] [address] PCP - General Nurse Practitioner 08/30/21 documented as of this encounter
[2025-06-14 04:06] VITALS: PULSE 88; O2SAT 100
[2025-06-14 04:14] LABS: Hematocrit 40.7 % (42.0-52.0); Hemoglobin 13.5 g/dL (14.0-18.0); Immature Granulocyte Percent A 0.2 % (0-0.5); Lymphocytes Absolute Auto 3.64 K/mm3 (0.9-3.2); Mean Corpuscular HGB Conc 33.2 g/dl (32-36); Mean Corpuscular Hemoglobin 27.3 pg (26-34); Mean Corpuscular Volume 82.2 fl (80-100); Nucleated Red Blood Cells Absolute Auto 0.000 K/mm3 (0.0-0.012); Nucleated Red Blood Cells Perc 0.0 % (0.0-0.2); Platelet Count Result 225 k/mm3 (150-375); Red Blood Count 4.95 M/mm3 (4.6-6.20); White Blood Count 8.5 K/mm3 (4.5-10.0)
--- NOTE | 2025-06-14 04:24 | ED_ITS ---
HPI - Chest Pain General Chief Complaint: Chest Pain Stated Complaint: chest pain Time Seen by Provider: 06/14/25 04:00 History of Present Illness HPI narrative: Patient was started on dextroamphetamine a few days ago for ADHD, and yesterday started having pain to his left chest, not usually there at rest but worse any time he moves his left arm. Has never had symptoms like this before. No trouble breathing, but does have a sensation of indigestion or gas. Related Data Home Medications ?Medication ?Instructions ?Recorded ?Confirmed ?Last Taken ?Type baclofen 10 mg tablet 10 mg PO QID 09/23/19 Unknown History blood sugar diagnostic #10 ea 09/23/19 Unknown History blood sugar diagnostic (OneTouch #10 ea 09/23/19 Unknown History Ultra Blue Test Strip) lancets 33 gauge (OneTouch Delica #100 ea 09/23/19 Unknown History Lancets) metformin 1,000 mg tablet 1,000 mg PO DAILY 09/23/19 Unknown History nitroglycerin 0.4 mg sublingual 0.4 mg sublingual Q5M PRN Pain 09/23/19 Unknown History tablet allopurinol 300 mg tablet 300 mg PO DAILY 12/08/19 Unknown History amlodipine 10 mg tablet 10 mg PO DAILY 12/08/19 Unknown History chlorthalidone 50 mg tablet 50 mg PO DAILY 12/08/19 Unknown History methylphenidate HCl 20 mg tablet 20 mg PO BID 12/08/19 Unknown History sitagliptin phosphate 100 mg 100 mg PO DAILY 12/08/19 Unknown History tablet (Januvia) albuterol sulfate 90 mcg/actuation inhalation 12/21/19 Unknown History aerosol inhaler Allergies Allergy/AdvReac Type Severity Reaction Status Date / Time Penicillins Allergy Severe Anaphylactic Verified 06/14/25 03:58 Shock lisinopril Allergy Unknown Cough Verified 06/14/25 03:58 NSAIDS (Non-Steroidal AdvReac Other Verified 06/14/25 03:58 Anti-Inflamma Review of Systems 2 Review of Systems: All systems reviewed & are unremarkable except as noted in HPI and below PMFSH Past Medical History Medical History Osteoarthritis of both knees Sleep apnea Gastric reflux Essential hypertension Carpal tunnel syndrome Obesity Hyperglycinemia Diabetes mellitus Surgical History Surgical History No pertinent past surgical history Family History Family History Mother Diabetes mellitus Hypertension Father Hypertension Family history of cardiovascular disease Social History Social History Smoking status: Current every day smoker Alcohol intake: current Gender identity (if verbalized by the patient): Male Exam 2 Narrative: EXAMINATION OF ORGAN SYSTEMS/BODY AREAS: Constitutional: Vital signs per nursing GENERAL: Winces every time he moves his left arm HEAD: Normal with no signs of head trauma. EYES: EOMI, conjunctiva normal ENT: Hearing grossly intact LUNGS: Nonlabored breathing. HEART: [Regular rate and rhythm], slightly tender to palpation left chest ABD: [Soft], [nontender to palpation] EXT: Normal range of motion SKIN: [No rashes or lesions.] NEURO: [Alert and oriented x 3. No gross focal sensory or strength deficits.] PSYCH: Normal affect Course Vital Signs Vital signs: Vital Signs Temperature 98.3 F 06/14/25 04:00 Pulse Rate 94 06/14/25 04:00 Respiratory Rate 17 06/14/25 04:00 Blood Pressure 127/90 06/14/25 04:00 Pulse Oximetry 100 06/14/25 04:00 Oxygen Delivery Room Air 06/14/25 04:00 Temperature 98.3 F 06/14/25 04:00 Pulse Rate 81 06/14/25 05:47 Respiratory Rate 15 06/14/25 05:47 Blood Pressure 123/89 06/14/25 05:47 Pulse Oximetry 100 06/14/25 05:47 Oxygen Delivery Room Air 06/14/25 04:06 MDM - Chest Pain MDM Narrative Medical decision making narrative: ED COURSE AND MEDICAL DECISION MAKINM presenting with chest pain ongoing on and off for the past day, only present with movement of his left arm. EKG done in triage negative for acute ischemic changes. Cardiac workup is initiated. EKG: Performed in triage and interpreted by me. Normal sinus rhythm. Rate 90. Normal axis. IL normal. QRS duration normal. QTc normal. No pathologic Q waves. No ST segment elevation or depression to suggest acute ischemia. No RV strain pattern. HEART score is 2 with no acute ischemic changes on EKG and negative troponin making ACS unlikely. Wells low risk with negative PERC making PE unlikely. Presentation not consistent with dissection or aneurysm without radiation of pain or pulse deficits. CXR negative for mediastinal widening. No abdominal pain or signs of sepsis that would be concerning for esophageal perforation or mediastinitis. No cardiomegaly or JVD to suggest pericardial effusion/tamponade. I suspect most likely musculoskeletal given that patient has no pain while resting or exerting himself, and only has the pain with certain movements of his left arm, which I am able to replicate here at bedside. On repeat evaluation just prior to discharge, the patient is no acute distress. I had a long discussion with the patient and with shared decision making, [he] is comfortable with outpatient management. [He] was given clear return instructions by myself in person as well as on discharge paperwork. Lab Data 06/14/25 04:09 06/14/25 04:09 Labs: Lab Results 06/14/25 Range/Units 04:09 WBC 8.5 (4.5-10.0) K/mm3 RBC 4.95 (4.6-6.20) M/mm3 Hgb 13.5 L (14.0-18.0) g/dL Hct 40.7 L (42.0-52.0) % MCV 82.2 (80-100) fl MCH 27.3 (26-34) pg MCHC 33.2 (32-36) g/dl RDW 12.8 (11.5-14.5) % Plt Count 225 (150-375) k/mm3 MPV 9.5 (7.4-10.4) fl Immature Gran % (Auto) 0.2 (0-0.5) % Neut % (Auto) 41.8 L (45.5-73.1) % Lymph % (Auto) 42.7 (18.3-44.2) % Harmon % (Auto) 10.0 H (2.6-8.5) % Eos % (Auto) 4.5 H (0-4.4) % Baso % (Auto) 0.8 (0.2-1.2) % Lymph # (Auto) 3.64 H (0.9-3.2) K/mm3 Harmon # (Auto) 0.9 H (0.1-0.6) K/mm3 Eos # (Auto) 0.4 H (0-0.3) K/mm3 Baso # (Auto) 0.1 (0.0-0.1) K/mm3 Abs Immat Gran (auto) 0.02 (0.00-0.031) K/mm3 Absolute Neuts (auto) 3.6 (1.3-6.7) K/mm3 Absolute Nucleated RBC 0.000 (0.0-0.012) K/mm3 Nucleated RBC % 0.0 (0.0-0.2) % PT 14.4 (11.1-14.7) Seconds INR 1.1 APTT 33.4 (22.3-36.8) Seconds Sodium 134 L (137-145) mmol/L Potassium 3.9 (3.4-5.0) mmol/L Chloride 101 (98-107) mmol/L Carbon Dioxide 26 (22-30) mmol/L Anion Gap 7 (4-12) mmol/L BUN 12 (9-20) mg/dL Creatinine 0.91 (0.7-1.3) mg/dL Estim Creat Clear Calc 110 ml/min Estimated GFR > 60 (59 - ) Glucose 86 (65-110) mg/dL Calcium 9.4 (8.4-10.2) mg/dL Total Bilirubin 1.3 (0.2-1.3) mg/dL AST 33 (17-59) U/L ALT 32 (6-50) U/L Alkaline Phosphatase 57 (38-126) U/L Troponin I < 0.012 (0.000-0.034) ng/mL Total Protein 7.8 (6.3-8.2) g/dL Albumin 4.5 (3.5-5.1) g/dL Lipase 207 (23-300) U/L Discharge Plan Discharge Clinical Impression: Atypical chest pain Patient Disposition: Home Condition: Stable Instructions: Chest Pain (ED) Additional Instructions: Please follow up with PCP; try cutting your dosage of ADHD medication. You can always return to the ER for any further issues especially if your pain increases or you develop shortness of breath or if the pain moves to your neck or arm. Patient Language: Senegalese Prescriptions: New methocarbamol 750 mg tablet 750 mg PO TID PRN (Reason: muscle spasm) Qty: 30 0RF No Action albuterol sulfate 90 mcg/actuation HFA aerosol inhaler INHALATION methocarbamol 750 mg tablet 750 mg PO QID PRN (Reason: muscle spasm) 7 Days Qty: 28 0RF ketorolac 10 mg tablet 10 mg PO Q6H PRN (Reason: pain) 5 Days Qty: 20 0RF tramadol 50 mg tablet 50 mg PO Q6H PRN (Reason: pain) Qty: 8 0RF baclofen 10 mg tablet 10 mg PO QID metformin 1,000 mg tablet 1,000 mg PO DAILY nitroglycerin 0.4 mg tablet, sublingual 0.4 mg SUBLINGUAL Q5M PRN (Reason: Pain) (DME) blood sugar diagnostic Strip See Rx Instructions .ROUTE .MEDSUPPLY Qty: 10 Rx Instructions: As directed (DME) lancets [OneTouch Delica Lancets] 33 gauge misc See Rx Instructions .ROUTE .MEDSUPPLY Qty: 100 Rx Instructions: As directed (DME) OneTouch Ultra Blue Test Strip Strip See Rx Instructions .ROUTE .MEDSUPPLY Qty: 10 Rx Instructions: As directed cyclobenzaprine 10 mg tablet 10 mg PO TID PRN (Reason: muscle spasm) Qty: 30 0RF tamsulosin [Flomax] 0.4 mg capsule 0.4 mg PO DAILY Qty: 14 0RF hydrocodone-acetaminophen 5-325 mg tablet 1 tablet PO Q12H PRN (Reason: pain) Qty: 10 0RF cyclobenzaprine 10 mg tablet 10 mg PO BID PRN (Reason: muscle spasm) Qty: 14 0RF famotidine [Pepcid] 20 mg tablet 20 mg PO DAILY Qty: 20 0RF prednisone 20 mg tablet 40 mg PO DAILY 4 Days Qty: 8 0RF methylphenidate HCl 20 mg Tablet 20 mg PO BID chlorthalidone 50 mg Tablet 50 mg PO DAILY amlodipine 10 mg Tablet 10 mg PO DAILY allopurinol 300 mg Tablet 300 mg PO DAILY Januvia 100 mg Tablet 100 mg PO DAILY methocarbamol [Robaxin-750] 750 mg tablet 750 mg PO Q4H Qty: 30 0RF naproxen 500 mg tablet 500 mg PO BID Qty: 30 0RF cyclobenzaprine 10 mg tablet 10 mg PO TID PRN (Reason: muscle spasm) Qty: 21 0RF diclofenac potassium 50 mg tablet 50 mg PO TID PRN (Reason: pain) Qty: 30 0RF oseltamivir 75 mg capsule 75 mg PO Q12H 5 Days Qty: 10 0RF Follow-up/Referrals: PHYSICIAN NOT ON STAFF,NONSTAFF [Primary Care Provider] -
[2025-06-14 04:28] LABS: INR 1.1; Prothrombin Time 14.4 Seconds (11.1-14.7)
[2025-06-14 04:29] LABS: Partial Thromboplastin Time 33.4 Seconds (22.3-36.8)
[2025-06-14 04:37] LABS: Alanine Aminotransferase 32 U/L (6-50); Albumin Level 4.5 g/dL (3.5-5.1); Alkaline Phosphatase 57 U/L (38-126); Anion Gap 7 mmol/L (4-12); Aspartate Amino Transferase 33 U/L (17-59); Bilirubin,Total 1.3 mg/dL (0.2-1.3); Blood Urea Nitrogen 12 mg/dL (9-20); Calcium 9.4 mg/dL (8.4-10.2); Carbon Dioxide 26 mmol/L (22-30); Chloride 101 mmol/L (98-107); Estimated CRCL calculation 110 ml/min; Estimated Glomerular Filt Rate > 60; Glucose 86 mg/dL (65-110); Lipase 207 U/L (23-300); Potassium 3.9 mmol/L (3.4-5.0); Sodium 134 mmol/L (137-145); Total Protein 7.8 g/dL (6.3-8.2)
[2025-06-14] MEDS: PANTOPRAZOLE SODIUM IV 40 MG VIAL IV PUSH (04:44)
[2025-06-14 04:48] LABS: Troponin I < 0.012 ng/mL (0.000-0.034)
[2025-06-14 05:17] VITALS: BP 123/89; PULSE 81; RESP 15; O2SAT 100
[2025-06-14] MEDS: KETOROLAC 15 MG/ML VIAL (*BKC) IV PUSH (05:41)
[2025-06-14 05:47] VITALS: BP 123/89; PULSE 81; RESP 15; O2SAT 100
== END 2025-06-14 05:49 | disposition home or self-care (01) ==
PROVIDERS: Emergency Provider Emergency Medicine
DX: R07.89 Other chest pain (principal); M19.90 Unspecified osteoarthritis, unspecified site; G47.30 Sleep apnea, unspecified; K21.9 Gastro-esophageal reflux disease without esophagitis; I10 Essential (primary) hypertension; E11.9 Type 2 diabetes mellitus without complications; Z79.84 Long term (current) use of oral hypoglycemic drugs
CPT/HCPCS: 36415; 71046; 80053; 83690; 84484; 85025; 85610; 85730; 93005; 96374; 96375; 99284; J1885; J2470